=== PATIENT | male | born 1940 | race Caucasian/White ===

== ENCOUNTER 2016-03-21 23:39 | Emergency (ER) | payer OTHER, MEDICARE ==
[~2016-03-21] VITALS: Ht 170.2 cm; Wt 83.9 kg
[~2016-03-21 23:39] MED LIST: AMIODARONE200 MG PO; CLARITIN10 M1 PO; CRESTOR20 MG PO; FERROUS SULFAT325 M3 PO; FLOMAX(MONOGRA0.4 MG PO; FUROSEMIDE20 MG PO; FUROSEMIDE40 M1 PO; LOPRESSOR 25MG25 MG PO; METOPROLOL TART50 MG PO; PAXIL10 MG PO; POTASSIUM CHLO20 ME2 PO; PRINIVIL 5MG5 MG PO; PROAIR HFA0.09 MG/Ac INH; SENNA8.6 M3 PO; SIMVASTATIN40 MG PO; SPIRIVA1 PUF INH; SYMBICORT 160/41 PUF INH; VICODIN 500 MG-1 TAB PO; WARFARIN SODIUM5 MG PO
--- NOTE | 2016-03-22 01:27 | ED GI/GU/ABDOMINAL COMPLAINT ---
History of Present Illness General Chief Complaint: Abdominal Pain/Flank Pain Stated Complaint: CONSTIPATION,PAINFUL,LAST BM MOVEMENT NEW YEARS EV Source: patient Exam Limitations: no limitations Vital Signs & Intake/Output Vital Signs & Intake/Output Vital Signs Date Time Temp Pulse Resp B/P Pulse O2 O2 Flow FiO2 Ox Delivery Rate 03/22 42 94 Room Air 03/22 40 96.8 60 18 120/60 93 Room Air Allergies Coded Allergies: NO KNOWN ALLERGIES (12/09/13) Reconcile Medications Acetaminophen/Hydrocodone Bi (Vicodin 500 MG-5 MG) 1 TAB TAB 1 TAB PO Q6 pain (Reported) Albuterol Sulfate (Proair Hfa) 0.09 MG/Actuation ASA 2 PUFF INH Q4P PRN COPD Amiodarone Hydrochloride (Amiodarone) (Unknown Strength) TAB 200 MG PO DAILY HEART (Reported) PLEASE CONFIRM DOSE Budesonide/Formoterol Fumara (Symbicort 160-4.5 Mcg Inhaler) 160 MCG/4.5 MCG PUF 2 PUF INH BID COPD Ferrous Sulfate 325 MG TABLET 1 TAB PO BID SUPPLEMENT (Reported) Furosemide 40 MG TABLET 1 TAB PO BID WATER PILL (Reported) Lisinopril (Prinivil) 5 MG TABLET 5 MG PO DAILY HTN Loratadine (Claritin) 10 MG TABLET 1 TAB PO DAILY ALLERGIES (Reported) Magnesium Citrate (Citrate Of Magnesia) 300 ML SOLUTION 296 ML PO BID PRN constipation Metoprolol Tartrate (Lopressor) 25 MG TABLET 25 MG PO BID HEART Na Phos,M-B/Na Phos,Di-Ba (Fleet Enema) 19 GRAM-7 GRAM/118 ML ENEMA 1 E RC BID PRN constipation PAROXETINE HCL (Paxil) 10 MG TABLET 1 TAB PO DAILY ANXIETY (Reported) Potassium Chloride 20 MEQ TAB.ER.PRT 1 TAB PO DAILY SUPPLEMENT (Reported) Rosuvastatin Calcium (Crestor) 20 MG TABLET 1 TAB PO DAILY HIGH CHOLESTEROL Sennosides (Senna) 8.6 MG TABLET 1 TAB PO DAILY CONSTIPATION (Reported) Tamsulosin Hydrochloride (Flomax) (Unknown Strength) CAP.ER.24H 0.4 MG PO DAILY BPH (Reported) Tiotropium [place] (Spiriva) 18 MCG CAP.W.DEV 1 PUF INH DAILY COPD Warfarin Sodium 5 MG TABLET 1 TAB PO SI BLOOD THINNER (Reported) RECHECK INR ON MONDAY (12/18/13) AND FAX RESULTS TO DR. NASCIMENTO, TO DOSE COUMADIN PER INR. Triage Note: PT FROM HOME C/O CONSTIPATION./ UNABLE TO URINATE. PT STATES THAT 03/21/16 AROUND 1400 HIS STOMACH BEGAN TO CRAMP. PT STATES " I AM CONSTIPATED AND I AM UNABLE TO URINATE DUE TO THIS, IT HAS HAPPENED TO ME BEFORE" PT STATES HE IS COMPLIANT WITH HIS MIRALAX AND SENNACOT DAILY. PTS STOMACH UPON ASSESSMENT IS DISTENDED AND FIRM. AWAITING PROVIDER EVAL. Triage Nurses Notes Reviewed? yes Onset: Gradual Duration: week(s):, getting worse Timing: recent history Quality/Severity: cramping Location: generalized abdomen Radiation: no radiation Activities at Onset: none Prior Abdominal Problems: similar symptoms Modifying Factors: Worsens With: other (difficulty voiding/defecating). Associated Symptoms: abdominal pain HPI: 75 yo gentleman with recurrent constipation presents with constipation, where he states that he has not had a bowel movement in 3 days. "When it gets like this, it makes it hard to urinate.... Usually an enema helps me." He notes no fever, chills, chest pain, shortness of breath. He is otherwise well. Past History Travel History Traveled to [place] past 21 day No Medical History Any Pertinent Medical History? see below for history Cardiovascular: AFIB, CAD, CHF, hypertension, hyperlipidemia Musculoskeletal: chronic back pain Blood Disorders: thrombocytopenia Cancer(s): prostate cancer History of MRSA: No History of VRE: No History of CDIFF: No Surgical History Surgical History: CABG (X2) Psychosocial History Who do you live with Patient/Self What is your primary language Sami Tobacco Use: Never used ETOH Use: occasional use Illicit Drug Use: denies illicit drug use Family History Hx Contributory? No Review of Systems Review of Systems Constitutional: Reports: no symptoms. EENTM: Reports: no symptoms. Respiratory: Reports: no symptoms. Cardiovascular: Reports: no symptoms. GI: Reports: no symptoms. Genitourinary: Reports: no symptoms. Musculoskeletal: Reports: no symptoms. Skin: Reports: no symptoms. Neurological/Psychological: Reports: no symptoms. Hematologic/Endocrine: Reports: no symptoms. Immunologic/Allergic: Reports: no symptoms. All Other Systems: Reviewed and Negative Physical Exam Physical Exam General Appearance: well developed/nourished, mild distress Head: atraumatic, normal appearance Eyes: Bilateral: normal appearance. Ears, Nose, Throat, Mouth: hearing grossly normal, moist mucous membrane Neck: normal inspection, supple, full range of motion Respiratory: normal breath sounds, chest non-tender, no respiratory distress, quiet respiration, lungs clear Cardiovascular: regular rate/rhythm Gastrointestinal: mild distension, decreased bowel sounds. Back: normal inspection, normal range of motion Extremities: normal range of motion, evidence of injury Neurologic/Psych: no motor/sensory deficits, awake, alert, oriented x 3 Skin: intact, normal color, warm/dry Core Measures ACS in differential dx? No Severe Sepsis Present: No Septic Shock Present: No Progress Differential Diagnosis: constipation vs other. Plan of Care: Orders Procedure Date/time Status [id number] VIEWS 03/22 005 Active EKG 03/21 2352 Active Laboratory Tests 03/21/16 2353: Troponin I Cancelled, CBC w Diff Cancelled, WBC Cancelled, RBC Cancelled, Hgb Cancelled, Hct Cancelled, MCV Cancelled, MCH Cancelled, RDW Cancelled, Plt Count Cancelled, MPV Cancelled, PUBS MCHC Cancelled Initial ED EKG: normal axis, normal intervals, normal p-waves, normal QRS complex, normal sinus rhythm Departure Departure Disposition: HOME OR SELF CARE Condition: Stable Clinical Impression Primary Impression: Constipation Referrals: GAIL LIND,GILES (PCP/Family) Referred to [facility] as new patient No Departure Forms: Customer Survey General Discharge Information Prescriptions: Current Visit Scripts Na Phos,M-B/Na Phos,Di-Ba (Fleet Enema) 1 E RC BID PRN constipation #8 BOT Ref 3 Magnesium Citrate (Citrate Of Magnesia) 296 ML PO BID PRN constipation #8 BOT Ref 3 Comments 03/22/16, 1:54am... pt received fleet enema, which effected a large bowel movement. He is feeling better. He declines labs and xray. "I feel great doc... I would like to go home."
[2016-03-22] MEDS ORDERED: FLEET ENEMA133 ML RC (01:35)
[2016-03-22] MEDS ORDERED: CITRATE OF MAG300 ML PO (01:35)
[2016-03-22 01:57] VITALS: BP 122/62
== END 2016-03-22 01:52 ==
LOC: ERH 23:39
DX: K59.00 Constipation, unspecified (principal); R10.84 Generalized abdominal pain; I10 Essential (primary) hypertension
CPT/HCPCS: 93005; 93010

== ENCOUNTER 2017-03-24 19:25 | Inpatient (IN) | payer OTHER, MEDICARE ==
[~2017-03-24] VITALS: Ht 172.7 cm; Wt 88.5 kg
[~2017-03-24 19:25] MED LIST changes: +CITRATE OF MAG300 ML PO; +FLEET ENEMA133 ML RC
--- NOTE | 2017-03-24 19:56 | ED UPPER/LOWER EXTREMITY COMPL ---
History of Present Illness General Chief Complaint: Fall Stated Complaint: "I FELL 10 DAYS AGO, MY R KNEE HURTS" Source: patient, family Exam Limitations: no limitations Vital Signs & Intake/Output Vital Signs & Intake/Output Vital Signs Date Time Temp Pulse Resp B/P B/P Pulse O2 O2 Flow FiO2 Mean Ox Delivery Rate 03/240 98.4 79 18 112/81 99 Room Air 03/24 2055 Room Air 03/24 1931 96.7 82 18 106/72 99 Room Air Allergies Coded Allergies: NO KNOWN ALLERGIES (12/09/13) Reconcile Medications Ferrous Sulfate 325 MG (65 MG IRON) TABLET 1 TAB PO BID SUPPLEMENT (Reported) Furosemide 80 MG TABLET 1 TAB PO QAM DIURETIC (Reported) Furosemide (Lasix) 40 MG TABLET 1 TAB PO QPM DIURETIC (Reported) Gabapentin 100 MG CAPSULE 1 CAP PO DAILY NERVE PAIN (Reported) Linaclotide (Linzess) 145 MCG CAPSULE 1 CAP PO DAILY GI (Reported) Loratadine (Claritin) 10 MG TABLET 1 TAB PO DAILY ALLERGIES (Reported) Metoprolol Tartrate 25 MG TABLET 1 TAB PO BID HEART/BP (Reported) Paroxetine HCl (Paxil) 10 MG TABLET 1 TAB PO DAILY MENTAL HEALTH (Reported) Rosuvastatin Calcium (Crestor) 20 MG TABLET 1 TAB PO EOD CHOLESTEROL ( Reported) Spironolactone 25 MG TABLET 1 TAB PO DAILY DIURETIC (Reported) Tamsulosin HCl 0.4 MG CAP.ER.24H 1 CAP PO DAILY PROSTATE (Reported) Umeclidinium Brm/Vilanterol Tr (Anoro Ellipta 62.5-25 Mcg INH) 62.5 MCG-25 MCG/ ACTUATION BLST.W.DEV 1 PUFF INH DAILY COPD (Reported) Warfarin Sodium (Coumadin) 7.5 MG TABLET 1 TAB PO DAILY BLOOD THINNER ( Reported) Triage Note: PT TO TRIAGE C/O R KNEE PAIN RADIATING INTO R FOOT S/P FALL 10 DAYS AGO WHEN GETTING OUT OF BED. PT REPORTS USES WALKED FOR BALANCE BUT LOST BALANCE AND LANDED ON R KNEE. DENIES HEADSTRIKE, DENIES LOC. PT ON WARFARIN. REFUSES MEDICATION IN TRIAGE REPORTING "I DON'T LIKE TO TAKE ANY PILLS." A/OX4. Triage Nurses Notes Reviewed? yes Onset: Gradual Duration: week(s):, waxing and waning Timing: recent history Severity: moderate Pain/Injury Location: Right: Knee, Ankle. Method of Injury: fall Modifying Factors: Improves With: rest. Associated Symptoms: RIGHT KNEE AND ANKLE PAIN HPI: 76 yo gentleman on coumadin, fell out of bed 10 days ago. He notes that he still has right knee pain. "I rolled out of bed and my knee still hurts." He did not have dizziness, chest pain, palpitations. He notes that he has had difficulty walking for the past several weeks. "My legs seem to slip out... I don't walk well." He denies headache, neck pain. He noted mild right elbow pain previously but states that it has resolved. His family called and spoke to our lead RN who convey concerns regarding home safety, that he has difficulty walking. Past History Travel History Traveled to [place] past 21 day No Medical History Any Pertinent Medical History? see below for history Neurological: NONE EENT: NONE Cardiovascular: AFIB, CAD, CHF, hypertension, hyperlipidemia Respiratory: NONE Gastrointestinal: NONE Hepatic: NONE Renal: NONE Musculoskeletal: chronic back pain Psychiatric: NONE Endocrine: NONE Blood Disorders: thrombocytopenia Cancer(s): prostate cancer History of MRSA: No History of VRE: No History of CDIFF: No Surgical History Surgical History: CABG (X2) Psychosocial History Who do you live with Patient/Self What is your primary language Yoruba Tobacco Use: Never used ETOH Use: occasional use Family History Hx Contributory? No Review of Systems Review of Systems Constitutional: Reports: no symptoms. EENTM: Reports: no symptoms. Respiratory: Reports: no symptoms. Cardiovascular: Reports: no symptoms. Gastrointestinal/Abdominal: Reports: no symptoms. Genitourinary: Reports: no symptoms. Musculoskeletal: Reports: no symptoms. Skin: Reports: no symptoms. Neurological/Psychological: Reports: no symptoms. Hematologic/Endocrine: Reports: no symptoms. Immunological: Reports: no symptoms. All Other Systems: Reviewed and Negative Physical Exam Physical Exam General Appearance: well developed/nourished, mild distress Head: atraumatic Eyes: Bilateral: normal appearance, PERRL, EOMI. Ears, Nose, Throat: normal pharynx, normal ENT inspection Neck: normal inspection, supple, full range of motion Cardiovascular/Respiratory: normal breath sounds, normal peripheral pulses Gastrointestinal: soft, non tender Elbow Right: normal ROM, no tenderness. strength of right arm intact Knee Right: diffuse ecchymosis, diffuse tenderness. ligaments intact. strength intact, no deformity. Foot Right: swelling, chronic venous stasis changes bilaterally. mild tenderness at lateral malleolus Neurologic/Tendon: normal sensation, axox3 Progress Differential Diagnosis: contusion, fracture, sprain, right knee contusion vs other. , electrolyte abnormality Plan of Care: Orders Procedure Date/time Status Add-on Test (ER Only) 03/24 2312 Active BLOOD CULTURE 03/24 2299 Active LACTIC ACID 03/24 2214 Active TROPONIN LEVEL 03/24 2118 Active PARTIAL THROMBOPLASTIN TIME 03/24 2118 Complete PROTHROMBIN TIME 03/24 2118 Complete COMPREHENSIVE METABOLIC PANEL 03/24 2118 Active CBC WITHOUT DIFFERENTIAL 03/24 2118 Complete Current Medications Sig/Ifeanyi Start time Last Medication Dose Stop Time Status Admin Sodium Chloride 1,000 ML BOLUS ONE 03/24 2314 AC (Normal Saline 0.9%) 03/25 0014 Acetaminophen/ 1 TAB Q4 PRN 03/24 2299 AC 03/24 Codeine Phosphate 2240 (Tylenol #3) Azithromycin 500 MG ONCE ONE 03/24 2299 AC (Zithromax) 03/24 2358 Sodium Chloride 250 ML (Normal Saline 0.9%) Laboratory Tests 03/24/172214: Anion Gap 17 H, Estimated GFR 31 L, BUN/Creatinine Ratio 52.9 H, Glucose 102 H, Lactic Acid Pending, Calcium 9.3, Total Bilirubin 1.9 H, AST 43, ALT 42, Alkaline Phosphatase 153 H, Troponin I 0.01, Total Protein 8.2, Albumin 4.8, Globulin 3.4, Albumin/Globulin Ratio 1.4, PT 30.8 H, INR 2.97 H, APTT 41 H, CBC w Diff NO MAN DIFF REQ, RBC 3.75 L, MCV 88.3, MCH 30.6, RDW 16.9 H, MPV 7.7, Gran % 75.0, Lymphocytes % 10.5 L, Monocytes % 10.4 H, Eosinophils % 3.6, Basophils % 0.5, Absolute Granulocytes 5.3, Absolute Lymphocytes 0.7 L, Absolute Monocytes 0.7 H, Absolute Eosinophils 0.2, Absolute Basophils 0, PUBS MCHC 34.7 Microbiology 03/24 2299 BLOOD: Blood Culture - ORD 03/24 2299 BLOOD: Blood Culture - ORD Diagnostic Imaging: Viewed by Me: Radiology Read, CT Scan. Discussed w/RAD: Radiology Read, CT Scan. Radiology Impression: right knee... no fx PATIENT: KT DAVEY PRESENT AGE: 76 PATIENT ACCOUNT NO: [id number] : 42 LOCATION: [facility] ORDERING PHYSICIAN: Can Jones MD SERVICE DATE: EXAM TYPE: RAD - XRY-KNEE COMPLETE RIGHT EXAMINATION: XR KNEE, RIGHT CLINICAL INFORMATION: Right knee pain. COMPARISON: None TECHNIQUE: Four views of the right knee. FINDINGS: There is a moderate size enthesophyte along the superior and inferior patella. There is no abnormal joint effusion. A small loose body suspected in the lateral compartment. No visible acute fracture or dislocation seen. There is moderate prepatellar soft tissue swelling suggestive of bursitis or injury. IMPRESSION: Moderate size enthesophyte superior inferior patella. Small loose body suspected lateral compartment. No acute fracture or dislocation seen. Moderate prepatellar soft tissue swelling likely bursitis or injury. DICTATED BY: Constantin Meza MD DATE/TIME DICTATED:03/24/172007 TEACHING ASSISTANT:MEGAN DATE/TIME TRANSCRIBED:03/24/172007 CONFIDENTIAL, DO NOT COPY WITHOUT APPROPRIATE AUTHORIZATION. <Electronically signed in Other Vendor System> SIGNED BY: Constantin Meza MD 03/24/172013, head/cervical ct... no acute disease. PATIENT: KT DAVEY PRESENT AGE: 76 PATIENT ACCOUNT NO: [id number] : 42 LOCATION: [facility] ORDERING PHYSICIAN: Can Jones MD SERVICE DATE: 03/24/17 EXAM TYPE: CAT - CT CERV SPINE WO IV CONTRAST; CT HEAD WO IV CONTRAST EXAMINATION: CT HEAD WITHOUT CONTRAST CT CERVICAL SPINE WITHOUT CONTRAST CLINICAL INFORMATION: Confused. On Coumadin. COMPARISON: None. TECHNIQUE: Imaging was performed from the skull base to vertex without intravenous administration of contrast. In addition, helical noncontrast CT imaging was acquired through the cervical spine and source images were reviewed along with axial reconstructions and sagittal and coronal MPRs. DLP: 1339.4 mGy-cm FINDINGS : HEAD: No intracranial mass, hemorrhage, or midline shift is visualized. There is atrophy with prominence of the ventricles and the sulci and hypodensity of the periventricular white matter due to chronic small vessel ischemic disease. There is vascular calcifications of the internal carotid arteries and vertebral arteries bilaterally. No extra-axial collections are identified. Small amount of mucosal thickening present in the ethmoid sinuses. Mastoid air cells are normally aerated. CERVICAL SPINE: There is no evidence of acute cervical spine fracture. Vertebrae have normal height and alignment. There is been fusion with anterior plate and screws C4-C6. Cervical disc height narrowing with endplate spurs and irregularity of the endplates at C3-C4 and C6-C7. The posterior spurs at the uncinate process at C3-C4 encroach into the neural foramina bilaterally. There is bilateral facet joint arthrosis most significant at C1-C2 and C2-C3. No pre- or paravertebral soft tissue abnormality is identified. Ground glass opacity at the dependent left upper lobe along the major fissure. Emphysematous lucencies of lung apices subpleural lung. Pacemaker leads seen at the upper mediastinum. Status post median sternotomy. There is atherosclerotic vascular wall calcifications of aorta and origin of great vessels. There are vascular wall calcification of the carotid artery occlusion bilaterally in the soft tissues of the neck. IMPRESSION: 1. No acute intracranial pathology. 2. No CT evidence of acute cervical spine fracture or traumatic subluxation DICTATED BY: Dex Jo MD DATE/TIME DICTATED:03/24/172148 TEACHING ASSISTANT:MEGAN DATE/TIME TRANSCRIBED:03/24/172148 CONFIDENTIAL, DO NOT COPY WITHOUT APPROPRIATE AUTHORIZATION. <Electronically signed in Other Vendor System> SIGNED BY: Dex Jo MD 03/24/171 CXR Impression: right infiltrate PATIENT: KT DAVEY PRESENT AGE: 76 PATIENT ACCOUNT NO: [id number] : 42 LOCATION: [facility] ORDERING PHYSICIAN: Can Jones MD SERVICE DATE: 03/24/17 EXAM TYPE: RAD - XRY-ANKLE 3 OR MORE VIEWS R; XRY-CHEST XRAY, TWO VIEWS EXAMINATION: Right ankle and chest x-ray. CLINICAL INFORMATION: Right ankle pain. Chest pain status post fall. COMPARISON: Chest x-ray 12/24/2015 TECHNIQUE: AP, lateral, and mortise views of the right ankle. Chest PA and lateral views FINDINGS: RIGHT ANKLE: There is no visible acute fracture or dislocation. There is bimalleolar soft tissue swelling. The ankle mortise and subtalar joints are normal. There is dorsal talonavicular spurring. No lytic process seen. CHEST: There is a right lower lobe consolidation. Rest of lungs are expanded and clear. Heart size is enlarged with mild prominence of pulmonary vascularity but no congestion. There are dual pacer electrodes in right atrium and right ventricle. There are mediastinal randall and median sternotomy sutures from previous CABG. No gross bony abnormality seen. IMPRESSION: Right lower lobe consolidation/ infiltrate. Bimalleolar soft tissue swelling without any underlying visible fracture or dislocation. DICTATED BY: Constantin Mzea MD DATE/TIME DICTATED:2156 TEACHING ASSISTANT:MEGAN DATE/TIME TRANSCRIBED:03/24/172156 CONFIDENTIAL, DO NOT COPY WITHOUT APPROPRIATE AUTHORIZATION. <Electronically signed in Other Vendor System> SIGNED BY: Constantin Meza MD 03/24/172203 Departure Departure Disposition: HOME OR SELF CARE Condition: Stable Clinical Impression Primary Impression: Pneumonia Secondary Impressions: Contusion of right knee, Dehydration, Renal failure, Weakness Referrals: Ady San MD (PCP/Family) Departure Forms: Customer Survey General Discharge Information Admission Note Spoke With: Tamir Hanna MD Documentation of Exam: Documentation of any treatments & extenuating circumstances including Concerns Regarding Discharge (functional status, medication knowledge or non-compliance, living conditions, etc.) that warrant an admission rather than observation: pt with pneumonia, renal failure, fatigue and weakness. pt merits iv fluids, iv abx, close follow up. Critical Care Note Critical Care Note Critical Care Time: 30-74 min
--- NOTE | 2017-03-24 20:14 | RADIOLOGY REPORT ---
EXAMINATION: XR KNEE, RIGHT CLINICAL INFORMATION: Right knee pain. COMPARISON: None TECHNIQUE: Four views of the right knee. FINDINGS: There is a moderate size enthesophyte along the superior and inferior patella. There is no abnormal joint effusion. A small loose body suspected in the lateral compartment. No visible acute fracture or dislocation seen. There is moderate prepatellar soft tissue swelling suggestive of bursitis or injury. IMPRESSION: Moderate size enthesophyte superior inferior patella. Small loose body suspected lateral compartment. No acute fracture or dislocation seen. Moderate prepatellar soft tissue swelling likely bursitis or injury.
--- NOTE | 2017-03-24 22:04 | RADIOLOGY REPORT ---
EXAMINATION: Right ankle and chest x-ray. CLINICAL INFORMATION: Right ankle pain. Chest pain status post fall. COMPARISON: Chest x-ray 12/24/2015 TECHNIQUE: AP, lateral, and mortise views of the right ankle. Chest PA and lateral views FINDINGS: RIGHT ANKLE: There is no visible acute fracture or dislocation. There is bimalleolar soft tissue swelling. The ankle mortise and subtalar joints are normal. There is dorsal talonavicular spurring. No lytic process seen. CHEST: There is a right lower lobe consolidation. Rest of lungs are expanded and clear. Heart size is enlarged with mild prominence of pulmonary vascularity but no congestion. There are dual pacer electrodes in right atrium and right ventricle. There are mediastinal randall and median sternotomy sutures from previous CABG. No gross bony abnormality seen. IMPRESSION: Right lower lobe consolidation/infiltrate. Bimalleolar soft tissue swelling without any underlying visible fracture or dislocation.
--- NOTE | 2017-03-24 22:05 | CT SCAN REPORT ---
EXAMINATION: CT HEAD WITHOUT CONTRAST CT CERVICAL SPINE WITHOUT CONTRAST CLINICAL INFORMATION: Confused. On Coumadin. COMPARISON: None. TECHNIQUE: Imaging was performed from the skull base to vertex without intravenous administration of contrast. In addition, helical noncontrast CT imaging was acquired through the cervical spine and source images were reviewed along with axial reconstructions and sagittal and coronal MPRs. DLP: 1339.4 mGy-cm FINDINGS: HEAD: No intracranial mass, hemorrhage, or midline shift is visualized. There is atrophy with prominence of the ventricles and the sulci and hypodensity of the periventricular white matter due to chronic small vessel ischemic disease. There is vascular calcifications of the internal carotid arteries and vertebral arteries bilaterally. No extra-axial collections are identified. Small amount of mucosal thickening present in the ethmoid sinuses. Mastoid air cells are normally aerated. CERVICAL SPINE: There is no evidence of acute cervical spine fracture. Vertebrae have normal height and alignment. There is been fusion with anterior plate and screws C4-C6. Cervical disc height narrowing with endplate spurs and irregularity of the endplates at C3-C4 and C6-C7. The posterior spurs at the uncinate process at C3-C4 encroach into the neural foramina bilaterally. There is bilateral facet joint arthrosis most significant at C1-C2 and C2-C3. No pre- or paravertebral soft tissue abnormality is identified. Ground glass opacity at the dependent left upper lobe along the major fissure. Emphysematous lucencies of lung apices subpleural lung. Pacemaker leads seen at the upper mediastinum. Status post median sternotomy. There is atherosclerotic vascular wall calcifications of aorta and origin of great vessels. There are vascular wall calcification of the carotid artery occlusion bilaterally in the soft tissues of the neck. IMPRESSION: 1. No acute intracranial pathology. 2. No CT evidence of acute cervical spine fracture or traumatic subluxation
[2017-03-24 22:27] LABS: ABSOLUTE BASOPHIL COUNT 0 /CUMM (0.0-0.2); ABSOLUTE EOSINOPHIL COUNT 0.2 /CUMM (0.0-0.7); ABSOLUTE GRANULOCYTE CT 5.3 /CUMM (1.4-6.5); ABSOLUTE LYMPH COUNT 0.7 /CUMM (1.2-3.4); ABSOLUTE MONOCYTE COUNT 0.7 /CUMM (0.10-0.60); BASOPHIL % 0.5 % (0.0-2.0); EOSINOPHIL % 3.6 % (0-5); HEMATOCRIT 33.1 % (42-52); MEAN CORPUSCULAR HGB 30.6 PG (27.0-31.0); MEAN CORPUSCULAR HGB CONC 34.7 G/DL (33.0-37.0); MEAN CORPUSCULAR VOLUME 88.3 FL (80.0-94.0); MEAN PLATELET VOLUME 7.7 FL (7.4-10.4); PLATELET COUNT 127 /CUMM (130-400); RBC DISTRIBUTION WIDTH 16.9 % (11.5-14.5); RED BLOOD CELL CT 3.75 /CUMM (4.70-6.10)
[2017-03-24 22:37] LABS: PT 30.8 SEC (9.4-12.5); PTT 41 SEC (25-37)
[2017-03-24] MEDS ORDERED: METOPROLOL TART25 M1 PO (23:01)
[2017-03-24] MEDS ORDERED: CLARITIN10 M1 PO (23:02)
[2017-03-24] MEDS ORDERED: FERROUS SULFAT325 M3 PO (23:02)
[2017-03-24] MEDS ORDERED: TAMSULOSIN HCL0.4 M1 PO (23:03)
[2017-03-24] MEDS ORDERED: COUMADIN7.5 M1 PO (23:03)
[2017-03-24] MEDS ORDERED: FUROSEMIDE80 M1 PO (23:03)
[2017-03-24] MEDS ORDERED: ANORO ELLIPTA1 EACH INH (23:04)
[2017-03-24] MEDS ORDERED: LASIX40 M1 PO (23:04)
[2017-03-24] MEDS ORDERED: SPIRONOLACTONE25 M1 PO (23:04)
[2017-03-24] MEDS ORDERED: CRESTOR20 M2 PO (23:05)
[2017-03-24] MEDS ORDERED: GABAPENTIN100 M2 PO (23:05)
[2017-03-24] MEDS ORDERED: PAXIL10 M1 PO (23:05)
[2017-03-24] MEDS ORDERED: LINZESS145 MC1 PO (23:05)
[2017-03-25] VITALS (7 sets, daily range): BP systolic 98–130; BP diastolic 58–72
--- NOTE | 2017-03-25 00:39 | History & Physical ---
Duy LIND,Christine 03/25/17 0038: General Information and HPI MD Statement: I have seen and personally examined KT DAVEY and documented this H&P. The patient is a 76 year old M who presented with a patient stated chief complaint of []. Source of Information: patient, old records Exam Limitations: no limitations History of Present Illness: CC: Right knee pain, frequent falling, cough 76-year-old male with past medical history of A. fib on Coumadin, CAD S/P CABG, CHF, hypertension, hyperlipidemia, trombocytopenia, prostate cancer, presented to [facility] complaining of right knee pain and swelling after falling down on his knee 10 days ago when he rolled down and fell from his bed. Patient reports increasing falling recently in the past few months. Which he attributes to having weakness in his lower extremity. He shouldn't reports that he saw his primary care doctor for advice regarding this problem which he had treatment for restless leg syndrome but it didn't help to improve his weakness. The patient describes the pain as severe 10/10 in severity in his right knee, a few days later he started noticing pain and swelling of his left ankle as well. Before that fall The patient was moving independently , he lives home alone. The patient admitted that he has been following a strict low-salt diet but at the time of Miguelito he increased his salt intake. Patient usually weigh himself daily at home and at rest his Lasix dose depending on his weight. The patient said that he increased his Lasix dose when he noticed that he had gained weight and felt more edematous. (Patient is on furosemide, spironolactone, metoprolol for treatment of heart failure. 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 Patient also endorses cough, wheezes and expectoration of white/yellowish sputum for the past week. He denies fever, chills, nausea, vomiting, recent travel or sick contacts. He also denies any dysuria, frequency, hesitancy. Patient is nonsmoker, he quit smoking 40 years ago, he drinks 1 glass of wine daily, his last drink was on the day of admission. He denies any recreational drug use Allergies/Medications Allergies: Coded Allergies: NO KNOWN ALLERGIES (12/09/13) Home Med list Ferrous Sulfate 325 MG (65 MG IRON) TABLET 1 TAB PO BID SUPPLEMENT (Reported) Furosemide 80 MG TABLET 1 TAB PO QAM DIURETIC (Reported) Furosemide (Lasix) 40 MG TABLET 1 TAB PO QPM DIURETIC (Reported) Gabapentin 100 MG CAPSULE 1 CAP PO DAILY NERVE PAIN (Reported) Linaclotide (Linzess) 145 MCG CAPSULE 1 CAP PO DAILY GI (Reported) Loratadine (Claritin) 10 MG TABLET 1 TAB PO DAILY ALLERGIES (Reported) Metoprolol Tartrate 25 MG TABLET 1 TAB PO BID HEART/BP (Reported) Paroxetine HCl (Paxil) 10 MG TABLET 1 TAB PO DAILY MENTAL HEALTH (Reported) Rosuvastatin Calcium (Crestor) 20 MG TABLET 1 TAB PO EOD CHOLESTEROL ( Reported) Spironolactone 25 MG TABLET 1 TAB PO DAILY DIURETIC (Reported) Tamsulosin HCl 0.4 MG CAP.ER.24H 1 CAP PO DAILY PROSTATE (Reported) Umeclidinium Brm/Vilanterol Tr (Anoro Ellipta 62.5-25 Mcg INH) 62.5 MCG-25 MCG/ ACTUATION BLST.W.DEV 1 PUFF INH DAILY COPD (Reported) Warfarin Sodium (Coumadin) 7.5 MG TABLET 1 TAB PO DAILY BLOOD THINNER ( Reported) Past History Travel History Traveled to [place] past 21 day No Medical History Neurological: NONE EENT: NONE Cardiovascular: AFIB, CAD, CHF, hypertension, hyperlipidemia Respiratory: NONE Gastrointestinal: NONE Hepatic: NONE Renal: NONE Musculoskeletal: chronic back pain Psychiatric: NONE Endocrine: NONE Blood Disorders: thrombocytopenia Cancer(s): prostate cancer History of MRSA: No History of VRE: No History of CDIFF: No Surgical History Surgical History: CABG (X2) Past Family/Social History Family History Relations & Conditions if any Relation not specified for: *No pertinent family history Psychosocial History Smoking Status: Former Smoker ETOH Use: occasional use Functional Ability ADLs Independent: dressing, eating, toileting, bathing. Review of Systems Review of Systems Constitutional: Reports: malaise, weakness. Denies: chills, diaphoresis, fever. Cardiovascular: Denies: no symptoms. Respiratory: Reports: cough, sputum production. GI: Denies: bloating, constipation, diarrhea, nausea, vomiting. Genitourinary: Denies: no symptoms. Musculoskeletal: Reports: joint pain, joint swelling. Skin: Denies: no symptoms. Exam & Diagnostic Data Last 24 Hrs of Vital Signs/I&O Vital Signs Date Time Temp Pulse Resp B/P B/P Pulse O2 O2 Flow FiO2 Mean Ox Delivery Rate 03/25 0231 97.6 67 18 95/51 98 Room Air 03/24 2250 98.4 79 18 112/81 99 Room Air 03/24 2055 Room Air 03/24 1930 96.7 82 18 106/72 99 Room Air Intake & Output 03/25 0800 03/25 0000 03/24 1600 Intake Total Output Total 200 Balance -200 Output, Urine 200 Patient 160 lb Weight Weight Reported by Patient Measurement Method Physical Exam General Appearance Alert, Oriented X3, Cooperative, No Acute Distress HEENT Atraumatic, PERRLA, EOMI, Mucous Membr. moist/pink Neck Supple, No JVD Cardiovascular Normal S1, Normal S2, No Murmurs, irregular irregular Lungs wide spread rales and wheezes Abdomen Normal Bowel Sounds, Soft, No Tenderness Neurological Normal Speech Extremities No Clubbing, No Cyanosis, 2+ pitting edema, reddish discoloration and signs of dystrophic skin changes on both LE Vascular Normal Pulses Last 24 Hrs of Labs/Manuel: Laboratory Tests 03/25/17 0211: Urine Color YEL, Urine Clarity CLEAR, Urine pH 6.0, Ur Specific [place] 1.010, Urine Protein NEG, Urine Ketones NEG, Urine Nitrite NEG, Urine Bilirubin NEG, Urine Urobilinogen 0.2, Ur Leukocyte Esterase NEG, Ur Microscopic EXAM NOT REQUIRED, Urine Hemoglobin NEG, Urine Glucose NEG 03/25/17 0211: Ur Random Creatinine 54.9, Ur Random Sodium 5 L, Ur Random Potassium 33.8, Fraction Sodium Excret 0.2 03/24/175: Anion Gap 17 H, Estimated GFR 31 L, BUN/Creatinine Ratio 52.9 H, Glucose 102 H, Lactic Acid 1.1, Calcium 9.3, Total Bilirubin 1.9 H, AST 43, ALT 42, Alkaline Phosphatase 153 H, Creatine Kinase 145, Troponin I 0.01, Pro-B- Natriuretic Pept 790 H, Total Protein 8.2, Albumin 4.8, Globulin 3.4, Albumin/ Globulin Ratio 1.4, PT 30.8 H, INR 2.97 H, APTT 41 H, CBC w Diff NO MAN DIFF REQ, RBC 3.75 L, MCV 88.3, MCH 30.6, RDW 16.9 H, MPV 7.7, Gran % 75.0, Lymphocytes % 10.5 L, Monocytes % 10.4 H, Eosinophils % 3.6, Basophils % 0.5, Absolute Granulocytes 5.3, Absolute Lymphocytes 0.7 L, Absolute Monocytes 0.7 H, Absolute Eosinophils 0.2, Absolute Basophils 0, PUBS MCHC 34.7 Microbiology 03/25 210 URINE ROUT: Legionella Antigen - COMP 03/25 210 URINE ROUT: Streptococcus pneumoniae Antigen (M - COMP 03/25 020 NASOPHARYN: Influenza Virus A & B Rapid Smear - COMP 03/25 123 LOWER RESP: Respiratory Culture - ORD 03/25 123 LOWER RESP: Gram Stain - ORD 03/24 235 BLOOD: Blood Culture - RECD 03/24 2342 BLOOD: Blood Culture - RECD Assessment/Plan Assessment: 76-year-old male with past medical history of A. fib on Coumadin, CAD S/P CABG, CHF, hypertension, hyperlipidemia, trombocytopenia, prostate cancer, presented to [facility] complaining of right knee pain and swelling after falling down on his knee 10 days ago when he rolled down and fell from his bed. Patient reports increasing falling recently in the past few months. Most likely his falls are associated with increased diuretic intake which he felt his pulse him to orthostatic hypotension and weakness. Also consider diuretic intake has caused deteriorating renal functions. Also the patient was complaining of cough and expectoration for the past 2 days, Vital signs on admission: Normal except for blood pressure 95/51 Admission Showed Normal WBC of 7, Hemoglobin 11.5, Hematocrit 33.1, Platelets 127, INR 2.97, low sodium of 127, potassium 4, increased BUN/creatinine of 111/ 2.1, glucose 102, total bilirubin slightly increased of 1.9, proBNP 790, alkaline phosphatase 153, urine analysis normal chest x-ray showed right lower lobe consolidation/infiltrate, Bimalleolar soft tissue swelling without any underlying visible fracture or dislocation Imaging of lower extremity didn't show any signs of hip, knee or ankle fracture EKG showed A. fib with a QTc 518, no STT with changes #Community-acquired pneumonia: was initially started on ceftriaxone 1 g daily IV and azithromycin 500 mg daily IV which was subsequently switched to Unasyn Urine strep pneumonia and legionella antigen was negative Follow up on LRC, blood culture TRC #DONATO" Most likely due to high-dose Lasix We'll hold the morning dose of Lasix and resume the dose at night to prevent fluid overload and development of CHF exacerbation Close monitoring of kidney function Strict I's and O's Avoid nephrotoxic meds Encourage oral intake #Hyponatremia: Most likely due to decreased oral intake in addition to high-dose Lasix Follow-up BEP in the morning #History of A. fib on Coumadin, artificial valve Check PT/INR in the a.m. We'll dose Coumadin accordingly with target INR of 2-3 Cardiology consult appreciated in the a.m. #Chronic medical conditions CAD S/P CABG, CHF, hypertension, hyperlipidemia, trombocytopenia, prostate cancer, Continue home meds #History of fall, right knee pain and swelling History excluded any fracture in the hip, knee, ankle Pain control with Tylenol, and oxycodone Dystrophic skin changes and poor peripheral pulses, with a history of CAD which raises suspicion for PAD Might need to check duplex ultrasound of lower extremity Patient is full code DVT prophylaxis with Coumadin Heart healthy diet As Ranked By This Provider Problem List: 1. Pneumonia Core Measures/Misc (12/04) Acute Coronary Syndrome ACS Diagnosis: No Congestive Heart Failure Congestive Heart Failure Diagnosis No Cerebrovascular Accident CVA/TIA Diagnosis: No VTE (View Protocol) VTE Risk Factors Age>40 No Mechanical VTE Prophylaxis d/t N/A MechProphylax Ordered No VTE Pharm Prophylaxis d/t NA PharmProphylax ordered Sepsis (View protocol) Sepsis Present: No Rowdy Whitley 03/25/17 0424: Resident Review Statement Resident Statement: examined this patient, discussed with human resource internship, agreed with human resource internship, reviewed EMR data (avail), discussed with nursing, reviewed images, amended to note Other Findings: This is 76-year-old male with medical history of atrial fibrillation on Coumadin , coronary artery disease S/P CABG, diastolic congestive heart failure with preserved ejection fraction, hypertension, hyperlipidemia, mitral repair, bioprosthetic aortic valve. He presented to emergency department with complaining of right knee pain and swelling after falling down on his knee 10 days ago when he rolled down and fell from his bed. Patient reported that for the past 1-2 months he started to complain off difficulty ambulation, he states it's progressing and currently he cannot walk completely dependent. Also he reports that 2-3 month ago he was admitted to [facility] he was little bit confused if it's due to his congestive heart failure or pneumonia. Patient reports undergo recent colonoscopy around 3-4 weeks ago. He stated that usually check his weight at home and at just his Lasix regimen according to that, he reports that he is compliant with that but during the holiday patient reports taking some salty food and he gain some weighs and because of that increased his Lasix regimen, he reports feeling dehydrated and thirsty. Physical examination, lab and imaging as above. Assessment: -Chest x-ray finding: The patient currently asymptomatic, but the chest x-ray finding can be most likely due to aspiration status post the previous colonoscopy giving her presentation and the anatomical site of the consolidation. It also could be atypical which is least likely. -Acute and chronic kidney disease/hyponatremia: Most likely secondary to Lasix overdose. Addition to that the generalized weakness and decreased oral intake. -Difficulty ambulation/generalized weakness: Most likely due to the above presentation and due to his underlying comorbidities. Plan: -Admit patient to general medicine floor -[facility] every shift, strict RIVER's -Patient received 1 dose of IV ceftriaxone and azithromycin, will start IV Unasyn -Sputum culture, blood culture, strep and Legionella urine antigen, rapid flu -TRC nebs as needed -Patient received 1 normal saline bolus in the ED we'll hold off any fluid -Hold off home medication of Lasix, spironolactone -Check INR in a.m. adjust warfarin accordingly -Obtain hip x-ray to rule out fracture -Check Urinalysis, urine electrolytes, pro-B- peptide -Check CBC and basic electrolyte in a.m. -Physical therapy consultation in a.m. -Heart healthy diet -Pain pathway -DVT prophylaxis on warfarin -Full code [email or web address] [email or web address] 03/25/17 0715: Attending MD Review Statement Attending Statement Attending MD Statement: examined this patient, discuss w/resident/PA/FRUIT DISTRIBUTOR, agreed w/resident/PA/FRUIT DISTRIBUTOR, reviewed EMR data (avail), reviewed images, amended to note Attending Assessment/Plan: CC: Persistent right knee pain PMH: Aortic valve replacement, mitral valve repair, A. fib S/P maze surgery followed by pacemaker placement, CAD S/P one-vessel CABG, HTN, HF , chronic back pain, "low blood counts", COPD, BPH Patient presented to ER for persistent right knee pain. Patient states that he fell down from bed 10 days back, he exactly does not recall the fall but probably he was getting up the bed and leg gave out, did not lose consciousness, no chest pain palpitations before or after the fall. Patient is active at baseline but decreased activity after the injury, he has swollen right knee and right ankle after the fall. Of note patient states that he has been unsteady approximately 1-2 months, feeling like legs giving out, having multiple falls. Upon questioning multiple times he endorses productive cough and sputum production, but denies any chest pain, chest tightness, fever, chills, nausea, vomiting, choking of food. He has been hospitalized multiple times and [facility] for various reasons, last admission probably 2 months back or more, does not specify the reason probably heart failure versus pneumonia. "I have been in and out of hospitals so many times that I don't remember anymore". Patient takes 80 mg of Lasix in the morning 40 mg of Lasix in the night, checks his weight daily, takes extra Lasix dose if patient gets repeat gain, increase leg swelling or abdominal distention : 80 mg nightly dose instead of 40 mg and had some a dose of metolazone . Patient has been very strict about his water intake and sodium intake over the time but lost some control according to him during the [place] time, followed by which he took extra dose of Lasix. He denies any nausea, vomiting, diarrhea, bleeding per rectum or in vomiting. His last colonoscopy within the last month. Vitals: T max 98.4, HR 70s, RR 18, blood pressure 112/81, saturating 99% on room air. On exam: A O 3, cooperative, no acute distress, neck supple, JVD not elevated, no lymphadenopathy, mucosa dry, no focal neurological deficit, ROM in right ankle and right knee limited secondary to pain, contusion over the patella right knee and probable effusion of right knee, mild redness it's not warm to touch, bilateral leg edema R>L , CVS: S1-S2, RRR. RS: Clear to auscultate bilaterally. Abdomen: Soft, NT, obese, abdominal hernia, bowel sounds present. Labs: WBC 7.0, hemoglobin 11.5, and hematocrit 33.1, platelet 127, sodium 127, potassium 4.0, chloride 82, bicarbonate 28, BUN 111, creatinine 2.1, anion gap 17, glucose 102, calcium 9.3, lactate 1.1, LFT unremarkable, proBNP 790,, troponin 0.01, INR 2.97 ECG: ?Junctional rhythm : Narrow complex regular, could not appreciate P waves CT head, CT cervical spine, chest x-ray, ankle x-ray, knee x-ray, hip x-ray reviewed 1.Right lower lobe consolidation/infiltrate. 2.Bimalleolar soft tissue swelling without any underlying visible fracture or dislocation. 3.Moderate prepatellar soft tissue swelling likely bursitis or injury. Assessment and plan 76-year-old male presented in ER for persistent right knee pain after what appears to be mechanical fall 10 days back. The right knee has hematoma or contusion on patella, possibly effusion range of motion as possible but painful. X-ray reads bursitis or injury. Ankle is also swollen and tender, ROM is limited due to pain, and x-ray of ankle does not show any fractures. Patient has been having this unsteady gait since last 1 month or so, appears dehydrated on examination, elevated BUN, bicarbonate, hyponatremic, mild elevation in creatinine all goes in favor of dehydration causing prerenal DONATO on CKD. Patient has been very strict on his fluid and salt intake, has been taking excessive Lasix for weight gain, leg edema or abdominal girth which may be contributing to his unsteadiness and falls. Patient lives alone and family is concerned about the safety, patient refuses to go to rehabilitation facility and wants to go to assisted living facility. Instead he wants to try outpatient rehabilitation. Meanwhile he is also found to have right lower lobe infiltrates but there is no significant leukocytosis or left shift no fever. Upon probing patient endorses cough and sputum production but denies any fevers chills at home. With multiple hospitalization healthcare associated pneumonia as possible but last hospitalization was at least 2 months back. Meanwhile patient also had a colonoscopy done within last month, sedation may have precipitated aspiration event leading to pneumonia which is in right lower lobe. + Right knee injury versus bursitis, ? Knee effusion + Right ankle sprain + Mechanical fall + Dehydration secondary to excessive diuresis + Suspected aspiration pneumonia - Admit to general medicine - Hold Lasix for tomorrow morning (80 mg dose), restart Lasix from tomorrow night 80 - 40 - Consult cardiology in a.m. reassess diuretic regimen, with concerns of unsteady gait, recurrent falls, possible excessive dieresis - Right knee ultrasound, right hip x-ray - Consider orthopedic consult in a.m. - Adequate pain control - Continue IV Unasyn for suspected aspiration pneumonia - OT PT evaluation - Will need case management consult for short-term rehabilitation versus outpatient rehabilitation - Continue home doses of warfarin
--- NOTE | 2017-03-25 03:10 | RADIOLOGY REPORT ---
EXAMINATION: XR HIP, RIGHT CLINICAL INFORMATION: Pain and fall. COMPARISON: None TECHNIQUE: AP portable view of the right hip. FINDINGS: L4-L5 posterior fixation hardware is noted. No fracture is visualized in the right hip or visible portions the right hemipelvis. No dislocation. IMPRESSION: No radiographic evidence of right hip fracture.
--- NOTE | 2017-03-25 07:17 | Admission Certification ---
Admission Certification Certification Statement - As attending physician, I certify that at the time of - admission, based on clinical presentation, severity of - symptoms, need for further diagnostic testing and - therapeutic interventions, and risk of adverse outcomes - without in-hospital treatment, in my clinical assessment, - this patient requires an acute hospital stay for a minimum - of two nights or longer. I have also considered psychsocial - factors such as support system, advanced age, financial - issues, cognitive issues, and failed out-patient treatments, - past re-admission history, safety of patient, and lack of - compliance as applicable. Specific rationale supporting this admission is: Fall, right knee injury, right lower lobe pneumonia, dehydration
[2017-03-25 08:14] LABS: PT 29.7 SEC (9.4-12.5)
[2017-03-25 08:21] LABS: ABSOLUTE BASOPHIL COUNT 0 /CUMM (0.0-0.2); ABSOLUTE EOSINOPHIL COUNT 0.2 /CUMM (0.0-0.7); ABSOLUTE GRANULOCYTE CT 3.8 /CUMM (1.4-6.5); ABSOLUTE LYMPH COUNT 0.8 /CUMM (1.2-3.4); ABSOLUTE MONOCYTE COUNT 0.6 /CUMM (0.10-0.60); BASOPHIL % 0.6 % (0.0-2.0); EOSINOPHIL % 4.1 % (0-5); HEMATOCRIT 30.1 % (42-52); MEAN CORPUSCULAR HGB 30.4 PG (27.0-31.0); MEAN CORPUSCULAR HGB CONC 34.5 G/DL (33.0-37.0); MEAN CORPUSCULAR VOLUME 88.2 FL (80.0-94.0); MEAN PLATELET VOLUME 8.7 FL (7.4-10.4); RBC DISTRIBUTION WIDTH 17.7 % (11.5-14.5); RED BLOOD CELL CT 3.42 /CUMM (4.70-6.10); WHITE BLOOD CELL COUNT 5.4 /CUMM (4.8-10.8)
[2017-03-25 10:16] LABS: PLATELET COUNT 97 /CUMM (130-400)
--- NOTE | 2017-03-25 12:20 | ULTRASOUND REPORT ---
EXAMINATION: US SUPERFICIAL IMAGING, EXTREMITY CLINICAL INFORMATION: Pain and swelling status post fall. COMPARISON: Right knee films dated 03/24/2017. TECHNIQUE: Focused ultrasound of the right knee was performed. FINDINGS: In the posterior medial popliteal fossa, no focal fluid collection is seen. As seen on the plain film, there is prominent prepatellar soft tissue swelling without significant defined fluid collection or soft tissue mass seen. No significant hyperemia is seen with color Doppler imaging. IMPRESSION: Prominent prepatellar soft tissue swelling without defined bursal collection or defined hematoma formation.
--- NOTE | 2017-03-25 15:32 | PN- Att Addend ---
Attending Addendum Attending Brief Note S: The patient continues to complain of pain throughout his RLE- particularly pre-patellar region of his knee and his ankle region. He has bilateral swelling RLE>>LLE and states the swelling was there prior to his fall. He feels that he is having increasing symptoms of CHF- he has been taking extra Lasix at home. Is followed by Harvesting Manager in [facility] group per house staff. He denies dyspnea, however feels fluid is backing up into abdomen. Lasix has been held. INR and Cr are elevated. He does admit to cough. O: VS: Vital Signs Date Time Temp Pulse Resp B/P B/P Pulse O2 O2 Flow FiO2 Mean Ox Delivery Rate 03/25 1600 98.4 73 20 130/70 94 Room Air 03/25 1600 98.4 73 20 130/70 94 Room Air Intake & Output 03/25 1600 Intake Total 940 Output Total 950 Balance -10 Intake, IV 320 Intake, Oral 620 Number 0 Bowel Movements Output, Urine 950 Current Medications Sig/Ifeanyi Start time Last Medication Dose Route Stop Time Status Admin Acetaminophen 650 MG Q6 PRN 03/25 0115 AC PO Acetaminophen/ 1 TAB Q4 PRN 03/24 2300 AC 03/25 Codeine Phosphate PO 0930 Acetaminophen/ 0 .STK-MED ONE 03/24 2299 DC Codeine Phosphate PO Ampicillin Sodium/ 1,500 MG Q6 03/25 0630 AC 03/25 Sulbactam Sodium IV 1710 Sodium Chloride 100 ML Atorvastatin Calcium 80 MG 1700 03/25 1700 AC 03/25 PO 1710 Azithromycin 500 MG DAILY 03/25 1000 CAN Sodium Chloride 250 ML IV Azithromycin 500 MG ONCE ONE 03/24 2300 DC 03/25 Sodium Chloride 250 ML IV 03/24 2359 0020 Budesonide/ 2 PUF BID 03/25 1000 AC 03/25 Formoterol Fumarate INH 0931 Ceftriaxone Sodium 1,000 MG DAILY 03/25 1000 CAN IV Ceftriaxone Sodium 0 .STK-MED ONE 03/25 0017 DC .ROUTE Ceftriaxone Sodium 1,000 MG ONCE ONE 03/24 2300 DC 03/25 IV 03/24 2301 0015 Gabapentin 100 MG DAILY 03/25 1000 AC 03/25 PO 0931 Hydrocodone Bitart/ 1 TAB Q8P PRN 03/25 0115 AC Acetaminophen PO Metoprolol Tartrate 25 MG BID 03/25 1000 AC 03/25 PO 0931 Oxycodone HCl 10 MG Q8P PRN 03/25 0115 AC PO Paroxetine HCl 10 MG DAILY 03/25 1000 AC 03/25 PO 0931 Sodium Chloride 1,000 ML BOLUS ONE 03/24 2315 DC IV 03/25 0014 Tamsulosin HCl 0.4 MG DAILY 03/25 1000 AC 03/25 PO 0930 Tiotropium [place] 1 PUF DAILY 03/25 1000 AC 03/25 INH 0931 Trimethobenzamide HCl 200 MG ONCE PRN 03/25 0230 AC IM Physical Exam: HEENT: alvin- moist mucosa Neck: no JVD Chest: few crackles at bases, no wheeze, occ rhonchi Cor: sl irreg rhythm, nl rate, nl S1, S2 no murm Abd: BS+, soft, slightly distended Ext: RLE- 2+ edema, stasis changes, + ecchymoses, + prepatellar bursa tender, pulses 1+ LLE- 1+ edema, stasis changes, no ecchymoses Labs/Tests: RLE US IMPRESSION: Prominent prepatellar soft tissue swelling without defined bursal collection or defined hematoma formation. Laboratory Tests 03/25/17 0708: Anion Gap 14, Estimated GFR 37 L, BUN/Creatinine Ratio 53.3 H, PT 29.7 H, INR 2.86 H, CBC w Diff NO MAN DIFF REQ, RBC 3.42 L, MCV 88.2, MCH 30.4, RDW 17.7 H, MPV 8.7, Gran % 70.0, Lymphocytes % 14.1 L, Monocytes % 11.2 H, Eosinophils % 4.1, Basophils % 0.6, Absolute Granulocytes 3.8, Absolute Lymphocytes 0.8 L, Absolute Monocytes 0.6, Absolute Eosinophils 0.2, Absolute Basophils 0, PUBS MCHC 34.5 03/25/17 0211: Urine Color YEL, Urine Clarity CLEAR, Urine pH 6.0, Ur Specific Stuart 1.010, Urine Protein NEG, Urine Ketones NEG, Urine Nitrite NEG, Urine Bilirubin NEG, Urine Urobilinogen 0.2, Ur Leukocyte Esterase NEG, Ur Microscopic EXAM NOT REQUIRED, Urine Hemoglobin NEG, Urine Glucose NEG 03/25/17 0211: Ur Random Creatinine 54.9, Ur Random Sodium 5 L, Ur Random Potassium 33.8, Fraction Sodium Excret 0.2 03/24/175: Anion Gap 17 H, Estimated GFR 31 L, BUN/Creatinine Ratio 52.9 H, Glucose 102 H, Lactic Acid 1.1, Calcium 9.3, Total Bilirubin 1.9 H, AST 43, ALT 42, Alkaline Phosphatase 153 H, Creatine Kinase 145, Troponin I 0.01, Pro-B- Natriuretic Pept 790 H, Total Protein 8.2, Albumin 4.8, Globulin 3.4, Albumin/ Globulin Ratio 1.4, PT 30.8 H, INR 2.97 H, APTT 41 H, CBC w Diff NO MAN DIFF REQ, RBC 3.75 L, MCV 88.3, MCH 30.6, RDW 16.9 H, MPV 7.7, Gran % 75.0, Lymphocytes % 10.5 L, Monocytes % 10.4 H, Eosinophils % 3.6, Basophils % 0.5, Absolute Granulocytes 5.3, Absolute Lymphocytes 0.7 L, Absolute Monocytes 0.7 H, Absolute Eosinophils 0.2, Absolute Basophils 0, PUBS MCHC 34.7 Microbiology 03/25 210 URINE ROUT: Legionella Antigen - COMP 03/25 210 URINE ROUT: Streptococcus pneumoniae Antigen (M - COMP 03/25 0200 NASOPHARYN: Influenza Virus A & B Rapid Smear - COMP 03/25 123 LOWER RESP: Respiratory Culture - COLB 03/25 123 LOWER RESP: Gram Stain - COLB 03/24 2352 BLOOD: Blood Culture - RECD 03/24 2342 BLOOD: Blood Culture - RECD Impression/Plan: #CAP- only minimal cough. Patient was started on antibiotics. Plan: Will continue Unasyn at present and reassess. #DONATO/CKD- patient has been taking extra Lasix due to symptoms of edema feeling he has CHF. Plan: Agree with holding Lasix and obtain Cardiology consult. Follow renal function and if not improving will need nephrology evaluation. #S/P Fall- RLE trauma- no obvious fractures on X-rays (hip, knee, ankle), however significant contusions. Is on chronic Coumadin with slightly high normal INR. He has chronic LE edema (right > left). No DVT on US. Plan: PT eval- may benefit from ortho eval with knee injury pending clinical course. May need STR. #Hyponatremia- probably secondary to Lasix. Plan: Will follow up BEP. #Hyperlipidemia- on Atorvastatin. Plan: Continue Atorvastatin.
[2017-03-26 07:33] VITALS: BP 122/70
[2017-03-26 09:32] LABS: PT 22.7 SEC (9.4-12.5)
[2017-03-26 09:50] LABS: ABSOLUTE BASOPHIL COUNT 0 /CUMM (0.0-0.2); ABSOLUTE EOSINOPHIL COUNT 0.2 /CUMM (0.0-0.7); ABSOLUTE GRANULOCYTE CT 5.1 /CUMM (1.4-6.5); ABSOLUTE LYMPH COUNT 0.6 /CUMM (1.2-3.4); ABSOLUTE MONOCYTE COUNT 0.7 /CUMM (0.10-0.60); BASOPHIL % 0.5 % (0.0-2.0); EOSINOPHIL % 3.1 % (0-5); GRANULOCYTE % 77.6 % (42.2-75.2); HEMATOCRIT 30.4 % (42-52); MEAN CORPUSCULAR HGB 30.6 PG (27.0-31.0); MEAN CORPUSCULAR HGB CONC 34.2 G/DL (33.0-37.0); MEAN CORPUSCULAR VOLUME 89.5 FL (80.0-94.0); MEAN PLATELET VOLUME 8.8 FL (7.4-10.4); PLATELET COUNT 90 /CUMM (130-400); RBC DISTRIBUTION WIDTH 17.7 % (11.5-14.5); WHITE BLOOD CELL COUNT 6.6 /CUMM (4.8-10.8)
--- NOTE | 2017-03-26 11:22 | PN- Housestaff ---
[place] 03/26/17 1104: Subjective Follow-up For: CAP Acute on chronic kidney injury Hyponatremia Thrombocytopenia Subjective: Patient remained afebrile overnight. Seen and examined this morning. Patient denied any chest pain, chills, fever, nausea, vomiting, abdominal pain and dysuria. patient is complaining of right knee pain but under control with pain medications. Review of Systems Constitutional: Reports: no symptoms. EENTM: Reports: no symptoms. Cardiovascular: Reports: no symptoms. Respiratory: Reports: cough, sputum production. Gastrointestinal: Reports: no symptoms. Genitourinary: Reports: no symptoms. Musculoskeletal: Reports: see HPI. Neurological/Psychological: Reports: no symptoms. Objective Last 24 Hrs of Vital Signs/I&O Vital Signs Date Time Temp Pulse Resp B/P B/P Pulse O2 O2 Flow FiO2 Mean Ox Delivery Rate 03/26 927 73 122/70 03/26 0927 73 122/70 03/26 0733 97.5 73 20 122/70 91 03/25 2331 98.1 72 20 130/70 92 Room Air 03/25 2210 73 130/70 03/25 1600 98.4 73 20 130/70 94 Room Air 03/25 1600 98.4 73 20 130/70 94 Room Air 03/25 1323 97.8 72 20 100/58 94 Room Air Intake & Output 03/26 1600 03/26 0800 03/26 0000 Intake Total 1320 350 Output Total 900 300 Balance 420 50 Intake, Oral 1320 350 Output, Urine 900 300 Physical Exam General Appearance: Alert, Oriented X3, Cooperative Skin Temp/Moisture Exam: Warm/Dry Sepsis Skin Exam (color): Normal for Ethnicity HEENT: Atraumatic, PERRLA, EOMI Neck: Supple Cardiovascular: Normal S1, Normal S2 Lungs: Clear to Auscultation, Decreased breath sounds on right side Abdomen: Soft, No Tenderness Neurological: Normal Speech, Strength at 5/5 X4 Ext, Normal Tone, Sensation Intact Extremities: b/l pedal edema with chronic venous changes, pain in right knee with prepattelar swelling. Assessment/Plan Assessment: 76 YO M with PMH of atrial fibrillation on Coumadin, coronary artery disease S/P CABG, diastolic congestive heart failure with preserved ejection fraction, hypertension, hyperlipidemia, mitral repair, bioprosthetic aortic valve. He presented to emergency department with complaining of right knee pain and swelling after falling down on his knee 10 days ago when he rolled down and fell from his bed. Community accquired pneumonia: -Initially patient was on ceftriaxone and azithromycin that was changed to Unasyn after 100 mg every 6 -Urine strep pneumonia and legionella antigen was negative -Follow up on [facility], blood culture -[facility] Acute on chronic kidney injury: -Most likely due to dehydration considering the oral intake and patient was on Lasix that precipitated dehydration. -We will hold the Lasix for now considering his acute on chronic kidney injury and also patient has dizziness and risk of fall. -We will reassess the patient in the morning -Close monitoring of kidney function -Strict I's and O's -Avoid nephrotoxic meds -Encourage oral intake Hyponatremia: -Possibly due to hypovolemic hyponatremia due to dehydration -Follow-up BEP in the morning Thrombocytopenia: -Patient platelet count is 90. -We will monitor the platelet count. We will avoid any medication that can decrease the platelet count of cause platelet dysfunction. H/O A.fib with valve replacement: -Check PT/INR in the a.m. -We'll dose Coumadin accordingly with target INR of 2-3 -Cardiology consult appreciated in the a.m. Chronic medical conditions CAD S/P CABG, CHF, hypertension, hyperlipidemia, trombocytopenia, prostate cancer: -Continue home meds History of fall, right knee pain and swelling: -History excluded any fracture in the hip, knee, ankle -Pain control with Tylenol, and oxycodone -Dystrophic skin changes and poor peripheral pulses, with a history of CAD which raises suspicion for PAD -Doppler studies negative for any bursa collection or hematoma. CODE STATUS: Full code DVT prophylaxis: Coumadin Problem List: 1. Dehydration 2. Pneumonia 3. Acute on chronic kidney failure Pain Ratin Pain Location: right knee Pain Goal: Pain 4 or less Pain Plan: tylenol for mild pain percocet for moderate pain Tomorrow's Labs & Rationales: cbc/bep Navid Griffith MD 03/26/171953: Attending MD Review Statement Attending Statement Attending Statement: examined this patient, discuss w/resident/PA/OXIDATION ENGINEER, agreed w/resident/PA/OXIDATION ENGINEER, reviewed EMR data (avail), discussed with nursing, amended to note Attending Assessment/Plan: The patient was seen and discussed with house staff. Edema appears less today ( no furosemide given). No obvious fractures on X-rays. Await cardiology input regarding diuretics (Dr. Moreno group). Will give dose of Coumadin today. PT consult tomorrow- may need STR. Follow renal function and INR.
[2017-03-26 14:52] VITALS: BP 104/70
--- NOTE | 2017-03-26 20:32 | Cons- Cardiology ---
General Information and HPI Consulting Request Date of Consult: 03/26/17 Requested By: Tamir Hanna MD History of Present Illness: This patient is a 76 year old male with history of hypertension, hyperlipidemia and coronary artery disease status post CABG. He also carries a history of atrial fibrillation and has a permanent pacemaker. The patient presented to [facility] with complaints of right knee pain with swelling noted after a fall from bed. In addition, the patient has noted some left leg swelling and an overall increase in his weight. He does have a cough productive of white sputum along with shortness of breath. He otherwise denies chest discomfort, lightheadedness or palpitations. The patient had renal insufficiency with an elevated creatinine of 2.1 noted at the time of admission which has come down. Allergies/Medications Allergies: Coded Allergies: NO KNOWN ALLERGIES (12/09/13) Home Med List: Ferrous Sulfate 325 MG (65 MG IRON) TABLET 1 TAB PO BID SUPPLEMENT (Reported) Furosemide 80 MG TABLET 1 TAB PO QAM DIURETIC (Reported) Furosemide (Lasix) 40 MG TABLET 1 TAB PO QPM DIURETIC (Reported) Gabapentin 100 MG CAPSULE 1 CAP PO DAILY NERVE PAIN (Reported) Linaclotide (Linzess) 145 MCG CAPSULE 1 CAP PO DAILY GI (Reported) Loratadine (Claritin) 10 MG TABLET 1 TAB PO DAILY ALLERGIES (Reported) Metoprolol Tartrate 25 MG TABLET 1 TAB PO BID HEART/BP (Reported) Paroxetine HCl (Paxil) 10 MG TABLET 1 TAB PO DAILY MENTAL HEALTH (Reported) Rosuvastatin Calcium (Crestor) 20 MG TABLET 1 TAB PO EOD CHOLESTEROL ( Reported) Spironolactone 25 MG TABLET 1 TAB PO DAILY DIURETIC (Reported) Tamsulosin HCl 0.4 MG CAP.ER.24H 1 CAP PO DAILY PROSTATE (Reported) Umeclidinium Brm/Vilanterol Tr (Anoro Ellipta 62.5-25 Mcg INH) 62.5 MCG-25 MCG/ ACTUATION BLST.W.DEV 1 PUFF INH DAILY COPD (Reported) Warfarin Sodium (Coumadin) 7.5 MG TABLET 1 TAB PO DAILY BLOOD THINNER ( Reported) Review of Systems Review of Systems: A twelve point review of systems is unremarkable. Past History Travel History Traveled to [place] past 21 day No Medical History Blood Transfusion Hx: Yes Neurological: NONE EENT: NONE Cardiovascular: AFIB, CAD, CHF, hypertension, hyperlipidemia Respiratory: NONE Gastrointestinal: NONE Hepatic: NONE Renal: NONE Musculoskeletal: chronic back pain Psychiatric: NONE Endocrine: NONE Blood Disorders: thrombocytopenia Cancer(s): prostate cancer Surgical History Surgical History: CABG (X2) Family History Relations & Conditions If Any: Relation not specified for: *No pertinent family history Psychosocial History Smoking Status: Former Smoker ETOH Use: occasional use Functional Ability ADLs Independent: dressing, eating, toileting, bathing. Exam & Diagnostic Data Vital Signs and I&O Vital Signs Date Time Temp Pulse Resp B/P B/P Pulse O2 O2 Flow FiO2 Mean Ox Delivery Rate 03/26 1452 98.0 76 16 104/70 95 03/26 0928 73 122/70 03/26 0927 73 122/70 03/26 0733 97.5 73 20 122/70 91 03/25 2331 98.1 72 20 130/70 92 Room Air 03/25 2210 73 130/70 Intake & Output 03/26 1600 03/26 0800 03/26 0000 03/25 1600 03/25 0800 03/25 0000 Intake Total 870 1320 350 940 130 Output Total 900 300 950 150 200 Balance 870 420 50 -10 -20 -200 Intake, IV 150 320 130 Intake, Oral 720 1320 350 620 Number 1 0 Bowel Movements Output, Urine 900 300 950 150 200 Patient 195 lb 160 lb Weight Weight Reported by Patient Reported by Patient Measurement Method Physical Exam: General: WD/obese male in NAD; alert and oriented x3 HEENT: NC/AT, PERRL, EOMI Neck: no JVD, no carotid bruit Heart: RRR with 2/6 systolic murmur Lungs: clear bilaterally Abdomen: soft, NT, +ve bowel sounds Extremities: 2+ leg edema Assessment/Plan Assessment/Plan * There is no evidence of decompensated CHF in this patient at this time. His shortness of breath is due to his lung infiltrate. The patient's attempt to diurese himself has resulted in a pre-reanl state. This has improved over the course of his admission. I would begin Lasix 40mg PO tomorrow. It should be noted that Gabapentin causes fluid retention and should be eliminated if possible. Consult Acknowledgment - Thank you for your consult request.
[2017-03-26 23:08] VITALS: BP 120/68
[2017-03-27 07:28] VITALS: BP 112/70
--- NOTE | 2017-03-27 08:17 | PN- Housestaff ---
Duy LIND,Christine 03/27/17 0817: Subjective Follow-up For: Upper respiratory infection Acute on chronic kidney injury (improved) Right knee injury Hyponatremia (improved) Complaints: pain scale (0-10) Subjective: Patient is seen and examined at bedside, no overnight events, continues to be afebrile, complains of pain in right ankle which is 8/10 in severity, however he reports improvement of his right knee pain, he also reports improvement of his cough and expectoration. Patient denies any fever, chills, nausea, vomiting or diarrhea Review of Systems Constitutional: Denies: chills, fever. Cardiovascular: Denies: chest pain, palpitations, peripheral edema. Respiratory: Reports: cough, sputum production. Gastrointestinal: Denies: no symptoms. Genitourinary: Denies: no symptoms. Musculoskeletal: Reports: joint pain, joint swelling. Skin: Denies: no symptoms. Objective Last 24 Hrs of Vital Signs/I&O Vital Signs Date Time Temp Pulse Resp B/P B/P Pulse O2 O2 Flow FiO2 Mean Ox Delivery Rate 03/27 1440 98.2 77 20 116/70 08 1240 Room Air 03/27 0941 116/70 03/27 0940 116/70 03/27 0800 Room Air 03/27 0728 98.2 77 20 112/70 90 Room Air 03/26 2308 97.4 74 20 120/68 90 Room Air 03/26 2251 74 104/70 Intake & Output 03/27 1600 08 0800 03/27 0000 Intake Total 820 Output Total 225 400 Balance 820 -225 -400 Intake, IV 120 Intake, Oral 700 Number 1 Bowel Movements Output, Urine 225 400 Physical Exam General Appearance: Alert, Oriented X3, Cooperative, No Acute Distress Skin: No Rashes, No Breakdown, No Significant Lesion HEENT: Atraumatic, PERRLA, EOMI, Mucous Membr. moist/pink Neck: Supple, No JVD Cardiovascular: Normal S1, Normal S2, No Murmurs Lungs: Clear to Auscultation, Normal Air Movement Abdomen: Normal Bowel Sounds, Soft, No Tenderness Neurological: Normal Speech Extremities: RIGHIT KNEE IS SWOLLEN, BRUISED AND TENDER, RIGHT le SHOWS 2 + PITTING EDEMA, RIGHT ANKLE IS SOLLEN AND TENDER, CHRONIC SKIN DISCOLORATION AND ATROPHIC CHANGES Vascular: Normal Pulses, Pulses Symmetrical Sepsis Peripheral Pulse Location: Radial Assessment/Plan Assessment: 76 YO M with PMH of atrial fibrillation on Coumadin, coronary artery disease S/P CABG, diastolic congestive heart failure with preserved ejection fraction, hypertension, hyperlipidemia, mitral repair, bioprosthetic aortic valve. He presented to emergency department with complaining of right knee pain and swelling after falling down on his knee 10 days ago when he rolled down and fell from his bed. ? COMMUNITY ACQUIRED PNEUMONIA ON Presentation the patient was afebrile and had normal WBC, however chest x-ray showed features suggestive of pneumonia Today patient denies any cough or expectoration -Initially patient was on ceftriaxone and azithromycin that was changed to Unasyn after 100 mg every 6 -Urine strep pneumonia and legionella antigen was negative -Follow up on [facility], blood culture -[facility] Acute on chronic kidney injury: Improved -Most likely due to dehydration considering the oral intake and patient was on Lasix that precipitated dehydration. -Patient was started on Lasix 40 mg by mouth daily this morning as per Dr. Maldonado recommendation -As oupatient pt follow DR. Prakash , I discussed with Dr Ugalde (Dr Prakash colleague in the same group) he recommended to discharge the patient on his home dose of Lasix 80 mg in the a.m. and 40 mg in the p.m. since his renal function improved, for further follow up with his electronic calibration technician as an outpatient -Close monitoring of kidney function -Strict I's and O's -Avoid nephrotoxic meds -Encourage oral intake Hyponatremia: Improved -Possibly due to hypovolemic hyponatremia due to dehydration -Follow-up [facility] in the morning Thrombocytopenia: -Patient platelet count is 90. -We will monitor the platelet count. We will avoid any medication that can decrease the platelet count of cause platelet dysfunction. H/O A.fib with valve replacement: INR today was 2.14 We will give Coumadin 7.5 mg, target INR 23 Follow-up one PT/INR and dose Coumadin accordingly Chronic medical conditions CAD S/P CABG, CHF, hypertension, hyperlipidemia, trombocytopenia, prostate cancer: -Continue home meds History of fall, right knee pain and swelling: -History excluded any fracture in the hip, knee, ankle -Pain control with Tylenol, and oxycodone -Dystrophic skin changes and poor peripheral pulses, with a history of CAD which raises suspicion for PAD -Doppler studies negative for any bursa collection or hematoma. Patient is a stable for discharge today to [facility] for further follow-up as his PCP as an outpatient CODE STATUS: Full code DVT prophylaxis: Coumadin Regular diet Problem List: 1. Acute on chronic kidney failure 2. Dehydration 3. Pneumonia 4. Contusion of right knee Pain Ratin Pain Location: right ankle Pain Goal: Pain 4 or less Pain Plan: per pathway Tomorrow's Labs & Rationales: n/a DVT/Prophylaxis: mechanical, pharmacological Jeferson Henry MD 03/27/17 1611: Attending MD Review Statement Attending Statement Attending MD Statement: examined this patient, discuss w/resident/PA/CONFIDENTIAL INVESTIGATOR, agreed w/resident/PA/CONFIDENTIAL INVESTIGATOR, reviewed EMR data (avail) Attending Assessment/Plan: Renal function normalized, breathing normal, no evidence of aspiration. Patient is stable for discharge to [facility], will continue current management
[2017-03-27 08:47] LABS: PT 22.3 SEC (9.4-12.5)
[2017-03-27 09:23] LABS: ABSOLUTE BASOPHIL COUNT 0.1 /CUMM (0.0-0.2); ABSOLUTE EOSINOPHIL COUNT 0.2 /CUMM (0.0-0.7); ABSOLUTE GRANULOCYTE CT 5.2 /CUMM (1.4-6.5); ABSOLUTE LYMPH COUNT 0.7 /CUMM (1.2-3.4); ABSOLUTE MONOCYTE COUNT 0.7 /CUMM (0.10-0.60); BASOPHIL % 0.8 % (0.0-2.0); EOSINOPHIL % 2.8 % (0-5); GRANULOCYTE % 76.4 % (42.2-75.2); HEMATOCRIT 29.5 % (42-52); MEAN CORPUSCULAR HGB 30.8 PG (27.0-31.0); MEAN CORPUSCULAR HGB CONC 34.7 G/DL (33.0-37.0); MEAN CORPUSCULAR VOLUME 88.9 FL (80.0-94.0); PLATELET COUNT 82 /CUMM (130-400); RBC DISTRIBUTION WIDTH 17.6 % (11.5-14.5); RED BLOOD CELL CT 3.32 /CUMM (4.70-6.10); WHITE BLOOD CELL COUNT 6.8 /CUMM (4.8-10.8)
[2017-03-27] MEDS ORDERED: TYLENOL325 M1 PO (09:23)
[2017-03-27] MEDS ORDERED: LASIX40 M1 PO ×3 (09:23→13:29)
--- NOTE | 2017-03-27 09:24 | Patient Discharge Instructions ---
Discharge Instructions General Discharge Information You were seen/treated for: Acute renal injury Special Instructions: Please follow-up with your senior tax manager within 1 week after discharge. Please follow up with your primary care doctor after discharge. Please check your INR level. Diet Continue normal diet: No Recommended Diet: Heart Healthy Activity Full Activity/No Limits: No Acute Coronary Syndrome Inclusion Criteria At DC or during hospital stay patient has or had the following: ACS DIAGNOSIS No Discharge Core Measures Meds if any: Prescribed or Continued at Discharge Meds if any: NOT Prescribed or Continued at Discharge Congestive Heart Failure Inclusion Criteria At DC or during hospital stay patient has or had the following: CHF DIAGNOSIS No Discharge Core Measures Meds if any: Prescribed or Continued at Discharge Meds if any: NOT Prescribed or Continued at Discharge Cerebrovascular accident Inclusion Criteria At DC or during hospital stay patient has or had the following: CVA/TIA Diagnosis No Discharge Core Measures Meds if any: Prescribed or Continued at Discharge Meds if any: NOT Prescribed or Continued at Discharge Venous thromboembolism Inclusion Criteria VTE Diagnosis No VTE Type NONE VTE Confirmed by (Test) NONE Discharge Core Measures - Per Current guidelines, there needs to be overlap - treatment for the first 5 days of Warfarin therapy. - If discharged on Warfarin prior to 5 days of - overlap therapy, the patient will need to be - assessed for post discharge needs including - *Post discharge parental anticoagulation - *Warfarin and/or parental anticoagulation education - *Follow up date to check INR post discharge At least 5 days overlap therapy as Inpatient No Meds if any: Prescribed or Continued at Discharge Note: Overlap Therapy is Warfarin and Anticoagulant Meds if any: NOT Prescribed or Continued at Discharge
--- NOTE | 2017-03-27 11:13 | Discharge Summary ---
See Addendum Visit Information Visit Dates Admission Date: 03/24/17 Discharge Date: 03/27/2017 Hospital Course Course Attending Physician: Jeferson Henry MD Primary Care Physician: Jaswinder LIND,Ady Consulting Request: Consulting Specialty: Cardiology Hospital Course: This is 76-year-old male with medical history of atrial fibrillation on Coumadin , coronary artery disease S/P CABG, diastolic congestive heart failure with preserved ejection fraction, hypertension, hyperlipidemia, mitral repair, bioprosthetic aortic valve. He presented to emergency department with complaining of right knee pain and swelling after falling down on his knee 10 days ago when he rolled down and fell from his bed. Patient reported that for the past 1-2 months he started to complain off difficulty ambulation, he states it's progressing and currently he cannot walk completely dependent. Also he reports that 2-3 month ago he was admitted to [facility] he was little bit confused if it's due to his congestive heart failure or pneumonia. Patient reports undergo recent colonoscopy around 3-4 weeks ago. He stated that usually check his weight at home and at just his Lasix regimen according to that, he reports that he is compliant with that but during the holiday patient reports taking some salty food and he gain some weighs and because of that increased his Lasix regimen, he reports feeling dehydrated and thirsty. Problem list: -Acute kidney injury -Hyponatremia -Generalized weakness status post fall -Right lung consolidation-CAP. Hospital course: Patient was admitted to general medicine floor, his by mouth Lasix where held, his renal function improved during his hospital course and normalize by the fourth day. Cardiology was consulted and on Monday they recommend to start the patient on low-dose Lasix 40 mg by mouth. Prior to admission we contact kier pleater brian Faith MD recommend to put the patient in his home regimen of Lasix and that he will need to follow-up within one week with his kier pleater as his renal function went back to baseline. Patient received 1 dose of IV ceftriaxone and azithromycin ED, that was switched to IV Unasyn received a total dose of 4 days of IV antibiotic and as the patient asymptomatic , we discharge him without any oral antibiotic for now. The right knee swelling with evaluated by ultrasound that came back negative for hematoma as the patient on warfarin. Patient warfarin withheld on the first day as his INR was 2.8 and restarted the next day and does it accordingly. Physical therapy recommended short-term rehabilitation giving the patient generalized weakness. Imaging: EXAMINATION: CT HEAD WITHOUT CONTRAST CT CERVICAL SPINE WITHOUT CONTRAST CLINICAL INFORMATION: Confused. On Coumadin. COMPARISON: None. TECHNIQUE: Imaging was performed from the skull base to vertex without intravenous administration of contrast. In addition, helical noncontrast CT imaging was acquired through the cervical spine and source images were reviewed along with axial reconstructions and sagittal and coronal MPRs. DLP: 1339.4 mGy-cm FINDINGS: HEAD: No intracranial mass, hemorrhage, or midline shift is visualized. There is atrophy with prominence of the ventricles and the sulci and hypodensity of the periventricular white matter due to chronic small vessel ischemic disease. There is vascular calcifications of the internal carotid arteries and vertebral arteries bilaterally. No extra-axial collections are identified. Small amount of mucosal thickening present in the ethmoid sinuses. Mastoid air cells are normally aerated. CERVICAL SPINE: There is no evidence of acute cervical spine fracture. Vertebrae have normal height and alignment. There is been fusion with anterior plate and screws C4-C6. Cervical disc height narrowing with endplate spurs and irregularity of the endplates at C3-C4 and C6-C7. The posterior spurs at the uncinate process at C3-C4 encroach into the neural foramina bilaterally. There is bilateral facet joint arthrosis most significant at C1-C2 and C2-C3. No pre- or paravertebral soft tissue abnormality is identified. Ground glass opacity at the dependent left upper lobe along the major fissure. Emphysematous lucencies of lung apices subpleural lung. Pacemaker leads seen at the upper mediastinum. Status post median sternotomy. There is atherosclerotic vascular wall calcifications of aorta and origin of great vessels. There are vascular wall calcification of the carotid artery occlusion bilaterally in the soft tissues of the neck. IMPRESSION: 1. No acute intracranial pathology. 2. No CT evidence of acute cervical spine fracture or traumatic subluxation EXAM TYPE: US - US-SUPERFICIAL IMAGING EXTREMI EXAMINATION: US SUPERFICIAL IMAGING, EXTREMITY CLINICAL INFORMATION: Pain and swelling status post fall. COMPARISON: Right knee films dated 03/24/2017. TECHNIQUE: Focused ultrasound of the right knee was performed. FINDINGS: In the posterior medial popliteal fossa, no focal fluid collection is seen. As seen on the plain film, there is prominent prepatellar soft tissue swelling without significant defined fluid collection or soft tissue mass seen. No significant hyperemia is seen with color Doppler imaging. IMPRESSION: Prominent prepatellar soft tissue swelling without defined bursal collection or defined hematoma formation. EXAM TYPE: RAD - XRY-ANKLE 3 OR MORE VIEWS R; XRY-CHEST XRAY, TWO VIEWS EXAMINATION: Right ankle and chest x-ray. CLINICAL INFORMATION: Right ankle pain. Chest pain status post fall. COMPARISON: Chest x-ray 12/24/2015 TECHNIQUE: AP, lateral, and mortise views of the right ankle. Chest PA and lateral views FINDINGS: RIGHT ANKLE: There is no visible acute fracture or dislocation. There is bimalleolar soft tissue swelling. The ankle mortise and subtalar joints are normal. There is dorsal talonavicular spurring. No lytic process seen. CHEST: There is a right lower lobe consolidation. Rest of lungs are expanded and clear. Heart size is enlarged with mild prominence of pulmonary vascularity but no congestion. There are dual pacer electrodes in right atrium and right ventricle. There are mediastinal randall and median sternotomy sutures from previous CABG. No gross bony abnormality seen. IMPRESSION: Right lower lobe consolidation/infiltrate. Bimalleolar soft tissue swelling without any underlying visible fracture or dislocation. Allergies: Coded Allergies: NO KNOWN ALLERGIES (12/09/13) Pertinent Lab Results: Laboratory Tests 03/27 03/26 0715 0631 Chemistry Sodium (137 - 145 mmol/L) 137 136 L Potassium (3.5 - 5.1 mmol/L) 4.0 3.8 Chloride (98 - 107 mmol/L) 98 96 L Carbon Dioxide (22 - 30 mmol/L) 28 26 Anion Gap (5 - 16) 12 14 BUN (9 - 20 mg/dL) 45 H 66 H Creatinine (0.7 - 1.2 mg/dL) 1.2 1.4 H Estimated GFR (>60 ml/min) 59 L 50 L BUN/Creatinine Ratio (7 - 25 %) 37.5 H 47.1 H Coagulation PT (9.4 - 12.5 SEC) 22.3 H 22.7 H INR (0.90 - 1.17) 2.14 H 2.18 H Hematology CBC w Diff NO MAN DIFF REQ NO MAN DIFF REQ WBC (4.8 - 10.8 /CUMM) 6.8 6.6 RBC (4.70 - 6.10 /CUMM) 3.32 L 3.40 L Hgb (14.0 - 18.0 G/DL) 10.2 L 10.4 L Hct (42 - 52 %) 29.5 L 30.4 L MCV (80.0 - 94.0 FL) 88.9 89.5 MCH (27.0 - 31.0 PG) 30.8 30.6 RDW (11.5 - 14.5 %) 17.6 H 17.7 H Plt Count (130 - 400 /CUMM) 82 L 90 L MPV (7.4 - 10.4 FL) 9.0 8.8 Gran % (42.2 - 75.2 %) 76.4 H 77.6 H Lymphocytes % (20.5 - 51.1 %) 9.9 L 8.7 L Monocytes % (1.7 - 9.3 %) 10.1 H 10.1 H Eosinophils % (0 - 5 %) 2.8 3.1 Basophils % (0.0 - 2.0 %) 0.8 0.5 Absolute Granulocytes (1.4 - 6.5 /CUMM) 5.2 5.1 Absolute Lymphocytes (1.2 - 3.4 /CUMM) 0.7 L 0.6 L Absolute Monocytes (0.10 - 0.60 /CUMM) 0.7 H 0.7 H Absolute Eosinophils (0.0 - 0.7 /CUMM) 0.2 0.2 Absolute Basophils (0.0 - 0.2 /CUMM) 0.1 0 PUBS MCHC (33.0 - 37.0 G/DL) 34.7 34.2 Disposition Summary Disposition Principal Diagnosis: -Acute kidney injury -Generalized weakness status post fall Additional Diagnosis: -Hyponatremia -Right lung consolidation-CAP. Discharge Disposition: SNF ([facility]) Discharge Instructions General Discharge Information Code Status: Full Code Patient's Diet: Heart healthy diet Patient's Activity: As TOrelated Follow-Up Instructions/Appts: Please follow-up with your kier pleater within 1 week after discharge. Please follow up with your primary care doctor after discharge. Medications at Discharge Discharge Medications: Stop taking the following medications: Gabapentin (Gabapentin) 100 MG CAPSULE ORAL DAILY Qty = 90 Continue taking these medications: Metoprolol Tartrate (Metoprolol Tartrate) 25 MG TABLET 1 Tablet ORAL TWICE DAILY Qty = 180 Loratadine (Claritin) 10 MG TABLET 1 Tablet ORAL DAILY Ferrous Sulfate (Ferrous Sulfate) 325 MG (65 MG IRON) TABLET 1 Tablet ORAL TWICE DAILY Warfarin Sodium (Coumadin) 7.5 MG TABLET 1 Tablet ORAL DAILY Tamsulosin HCl (Tamsulosin HCl) 0.4 MG CAP.ER.24H 1 Capsule ORAL DAILY Qty = 90 Furosemide (Furosemide) 80 MG TABLET 1 Tablet ORAL Every Morning Spironolactone (Spironolactone) 25 MG TABLET 1 Tablet ORAL DAILY Qty = 30 Umeclidinium Brm/Vilanterol Tr (Anoro Ellipta 62.5-25 Mcg INH) 62.5 MCG-25 MCG/ ACTUATION BLST.W.DEV 1 PUFF Inhale through mouth DAILY Qty = 180 Paroxetine HCl (Paxil) 10 MG TABLET 1 Tablet ORAL DAILY Qty = 90 Linaclotide (Linzess) 145 MCG CAPSULE 1 Capsule ORAL DAILY Qty = 90 Rosuvastatin Calcium (Crestor) 20 MG TABLET 1 Tablet ORAL Every other day Qty = 45 Furosemide (Lasix) 40 MG TABLET 1 Tablet ORAL Every night Days = 30 Start taking the following new medications: Acetaminophen (Tylenol) 325 MG TABLET 650 Milligram ORAL EVERY 8 HOURS as needed for PAIN SCALE 1-3 (MILD) Qty = 30 No Refills Copies To: Jaswinder LIND,Ady; Marcell LIND,[facility]
[2017-03-27 14:40] VITALS: BP 116/70
[2017-03-27 14:49] VITALS: BP 110/70
--- NOTE | 2017-03-27 15:48 | PN- Student ---
Subjective Subjective: Pt is a 76 y/o male PMH significant for afib /w coumadin, CAD s/p CABG + aortic and mitral valve replacement, CHF, HTN, HLD, thromocytopenia, prostate cancer admitted for incidental PNA on CXR and right knee/ankle pain secondary to a fall. Patient reports 13 days ago he fell out of bed and injured his right knee and ankle. He states he did not seek medical care immediately after because he wanted to see if sxs would resolve on its own. His pain continued to worsen and he also began having swelling of his knee when he decided to be seen in the ED 2 days ago. In the ED patient reported he also has felt fatigued for the past month and complained of a dry cough. Patient recieved a CXR which showed right lower lobe consolidation/infiltrate. Pt was subsequentally admitted to [facility] for observation and tx of PNA. Patient began abx tx with ceftriaxone + azithromycin --> unasyn. Patient reports today his knee/ankle pain and swelling have improved. He continues to feel fatigue. Denies having a cough, fever, or chill. Patient reports having episodes of epistaxis whenever he blows his nose, he states this has been a chronic issue. PSH: cervical spinal fusion, mechanical aortic valve, mitral valve repiar PMH: CAD s/p CABG, CHF, HTN, HLD, thromocytopenia, prostate cancer Social: regularly drinks a glass of wine with dinner, quit smoking many years ago. FMH: father of stroke 88 y/o, mother of braest cancer 84 y/o, has a brother who is healthy. Objective Objective: Laboratory Tests 03/27 0715 Chemistry Sodium (137 - 145 mmol/L) 137 Potassium (3.5 - 5.1 mmol/L) 4.0 Chloride (98 - 107 mmol/L) 98 Carbon Dioxide (22 - 30 mmol/L) 28 Anion Gap (5 - 16) 12 BUN (9 - 20 mg/dL) 45 H Creatinine (0.7 - 1.2 mg/dL) 1.2 Estimated GFR (>60 ml/min) 59 L BUN/Creatinine Ratio (7 - 25 %) 37.5 H Coagulation PT (9.4 - 12.5 SEC) 22.3 H INR (0.90 - 1.17) 2.14 H Hematology CBC w Diff NO MAN DIFF REQ WBC (4.8 - 10.8 /CUMM) 6.8 RBC (4.70 - 6.10 /CUMM) 3.32 L Hgb (14.0 - 18.0 G/DL) 10.2 L Hct (42 - 52 %) 29.5 L MCV (80.0 - 94.0 FL) 88.9 MCH (27.0 - 31.0 PG) 30.8 RDW (11.5 - 14.5 %) 17.6 H Plt Count (130 - 400 /CUMM) 82 L MPV (7.4 - 10.4 FL) 9.0 Gran % (42.2 - 75.2 %) 76.4 H Lymphocytes % (20.5 - 51.1 %) 9.9 L Monocytes % (1.7 - 9.3 %) 10.1 H Eosinophils % (0 - 5 %) 2.8 Basophils % (0.0 - 2.0 %) 0.8 Absolute Granulocytes (1.4 - 6.5 /CUMM) 5.2 Absolute Lymphocytes (1.2 - 3.4 /CUMM) 0.7 L Absolute Monocytes (0.10 - 0.60 /CUMM) 0.7 H Absolute Eosinophils (0.0 - 0.7 /CUMM) 0.2 Absolute Basophils (0.0 - 0.2 /CUMM) 0.1 PUBS MCHC (33.0 - 37.0 G/DL) 34.7 Current Medications Sig/Ifeanyi Start time Last Medication Dose Stop Time Status Admin Acetaminophen 650 MG Q6 PRN 03/25 0115 AC (Tylenol) Acetaminophen/ 1 TAB Q4 PRN 03/24 2300 AC 03/25 Codeine Phosphate 0930 (Tylenol #3) Ampicillin Sodium/ 1,500 MG Q6 03/25 0630 AC 03/27 Sulbactam Sodium 1131 (Unasyn) Sodium Chloride 100 ML (Normal Saline 0.9%) Atorvastatin Calcium 80 MG 1700 03/25 1700 AC 03/26 (Lipitor) 1843 Budesonide/ 2 PUF BID 03/25 1000 AC 03/27 Formoterol Fumarate 0939 (SYMBICORT) Furosemide 40 MG DAILY 03/27 1000 AC 03/27 (Lasix) 0940 Hydrocodone Bitart/ 1 TAB Q8P PRN 03/25 011 AC 01/07 Acetaminophen 0652 (Vicodin) Metoprolol Tartrate 25 MG BID 03/25 999 AC 03/27 (Lopressor) 0941 Oxycodone HCl 10 MG Q8P PRN 03/25 0115 AC 03/27 (Roxicodone) 0410 Paroxetine HCl 10 MG DAILY 03/25 999 AC 03/27 (Paxil) 0941 Tamsulosin HCl 0.4 MG DAILY 03/25 999 AC 03/27 (Flomax) 0940 Tiotropium [place] 1 PUF DAILY 03/25 999 AC 03/27 (Spiriva) 0940 Trimethobenzamide HCl 200 MG ONCE PRN 03/25 0230 AC (Tigan) Warfarin Sodium 5 MG COUMADIN 1700 ONE 03/27 1700 AC (Coumadin) 03/27 170 Warfarin Sodium 2.5 MG COUMADIN 1700 ONE 03/27 1700 AC (Coumadin) 03/27 170 Laboratory Tests 03/27 0715 Chemistry Sodium (137 - 145 mmol/L) 137 Potassium (3.5 - 5.1 mmol/L) 4.0 Chloride (98 - 107 mmol/L) 98 Carbon Dioxide (22 - 30 mmol/L) 28 Anion Gap (5 - 16) 12 BUN (9 - 20 mg/dL) 45 H Creatinine (0.7 - 1.2 mg/dL) 1.2 Estimated GFR (>60 ml/min) 59 L BUN/Creatinine Ratio (7 - 25 %) 37.5 H Coagulation PT (9.4 - 12.5 SEC) 22.3 H INR (0.90 - 1.17) 2.14 H Hematology CBC w Diff NO MAN DIFF REQ WBC (4.8 - 10.8 /CUMM) 6.8 RBC (4.70 - 6.10 /CUMM) 3.32 L Hgb (14.0 - 18.0 G/DL) 10.2 L Hct (42 - 52 %) 29.5 L MCV (80.0 - 94.0 FL) 88.9 MCH (27.0 - 31.0 PG) 30.8 RDW (11.5 - 14.5 %) 17.6 H Plt Count (130 - 400 /CUMM) 82 L MPV (7.4 - 10.4 FL) 9.0 Gran % (42.2 - 75.2 %) 76.4 H Lymphocytes % (20.5 - 51.1 %) 9.9 L Monocytes % (1.7 - 9.3 %) 10.1 H Eosinophils % (0 - 5 %) 2.8 Basophils % (0.0 - 2.0 %) 0.8 Absolute Granulocytes (1.4 - 6.5 /CUMM) 5.2 Absolute Lymphocytes (1.2 - 3.4 /CUMM) 0.7 L Absolute Monocytes (0.10 - 0.60 /CUMM) 0.7 H Absolute Eosinophils (0.0 - 0.7 /CUMM) 0.2 Absolute Basophils (0.0 - 0.2 /CUMM) 0.1 PUBS MCHC (33.0 - 37.0 G/DL) 34.7 Vital Signs Date Time Temp Pulse Resp B/P B/P Pulse O2 O2 Flow FiO2 Mean Ox Delivery Rate 03/27 1449 98.1 78 20 110/70 97 Room Air 03/27 1440 98.2 77 20 116/70 08 1240 Room Air 03/27 0941 116/70 03/27 0940 116/70 03/27 0800 Room Air 03/27 0728 98.2 77 20 112/70 90 Room Air 03/26 2308 97.4 74 20 120/68 90 Room Air 03/26 2251 74 104/70 Physical exam: General: Patient was sleeping comfortabely prior to interview. No acute distress. Cardio: Normal s1/s2 with a 2/6 systolic murmur heard best over the left sternal border. No gallops or rubs. Pulmonary: inspiratory wheeze. No crackles or rhonchi. Neck: supple MSK: multiple patches of ecchymosis surrounding the right knee with minor edema compared to the left. 1+ pitting edema noted bilateral lower extremitis. Assessment/Plan Assessment: Pt is a 76 y/o male PMH significant for a.fib /w coumadin, CAD s/p CABG + aortic and mitral valve replacement, CHF, HTN, HLD, thromocytopenia, prostate cancer admitted for incidental PNA on CXR and right knee/ankle pain secondary to a fall. Problem list: 1. CAP -incidental CXR findings of PNA. Patient denies fever or cough. No leukocytosis on CBC. -possibly consider a pneumonitis as opposed to CAP given clinical picture 2. DONATO -BUN:Cr ratio >20, likely indicates pre-renal azotemia secondary to volume depletion from lasix use for CHF -hydrate patient with IV fluids, continue lasix, BUN:CR ratio has slowely decreased since admission -discontinue gabapentin due peripheral edema 3. Afib -continue warfarin therapy. -EKG showed irregular irregular rhythm
== END 2017-03-27 15:35 | DRG 682 ==
LOC: ERH 19:25 → 2NB 23:50 → ERHI 23:50 → ENRESERV 03-25 01:48 → 2NB 03-25 04:05 → ENPENDDIS 03-27 14:08 → ENTRNSPT 03-27 15:26 → EDTRNSPT 03-27 15:32 → EDTRNSPTSTS 03-27 15:32 → 2NB 03-27 15:35 → CMPTRNSPT 03-27 16:11
PROVIDERS: Internal Medicine Hematology & Oncology; Pediatrics; Student in an Organized Health Care Education/Training Program
DX: N17.9 Acute kidney failure, unspecified (principal); J18.9 Pneumonia, unspecified organism; D69.6 Thrombocytopenia, unspecified; I13.0 Hypertensive heart and chronic kidney disease with heart failure and stage 1 through stage 4 chronic kidney disease, or unspecified chronic kidney disease; I48.91 Unspecified atrial fibrillation; I50.32 Chronic diastolic (congestive) heart failure; E87.1 Hypo-osmolality and hyponatremia; E86.0 Dehydration; S80.01XA Contusion of right knee, initial encounter; W19.XXXA Unspecified fall, initial encounter; N18.9 Chronic kidney disease, unspecified; Z79.01 Long term (current) use of anticoagulants; I25.10 Atherosclerotic heart disease of native coronary artery without angina pectoris; Z95.1 Presence of aortocoronary bypass graft; Z85.46 Personal history of malignant neoplasm of prostate; Z95.0 Presence of cardiac pacemaker; E78.5 Hyperlipidemia, unspecified; Z95.2 Presence of prosthetic heart valve; Z87.891 Personal history of nicotine dependence
CPT/HCPCS: 2NBSP; 84133; 84300; ERO; 36415; 71046; 73501; 73562-RT; 73610-RT; 76881; 81003; 82436; 82570; 87040; 87070; 87449; 87450; 87804; 87804-59; 93005; 93010; 97110-GO; 97116-GO; 97161-GP; 97530-GO; 99291; J0456; J0696; J3490; J7040

== ENCOUNTER 2017-08-28 13:51 | Inpatient (IN) | payer OTHER ==
[~2017-08-28] VITALS: Ht 170.2 cm; Wt 82.6 kg
[~2017-08-28 13:51] MED LIST changes: +ANORO ELLIPTA1 EACH INH; +COUMADIN7.5 M1 PO; +CRESTOR20 M2 PO; +FUROSEMIDE80 M1 PO; +GABAPENTIN100 M2 PO; +LASIX40 M1 PO; +LINZESS145 MC1 PO; +METOPROLOL TART25 M1 PO; +PAXIL10 M1 PO; +SPIRONOLACTONE25 M1 PO; +TAMSULOSIN HCL0.4 M1 PO; +TYLENOL325 M1 PO
--- NOTE | 2017-08-28 14:27 | ED HAND/WRIST INJURY COMPLAINT ---
History of Present Illness General Chief Complaint: Hand or Wrist Injury Stated Complaint: SWOLLEN R HAND INDEX FINGER Source: patient, old records Exam Limitations: no limitations Vital Signs & Intake/Output Vital Signs & Intake/Output Vital Signs Date Time Temp Pulse Resp B/P B/P Pulse O2 O2 Flow FiO2 Mean Ox Delivery Rate 08/29 0514 98.0 72 18 100/54 93 Room Air 08/29 0148 98.6 66 20 104/60 93 Room Air 08/29 0148 98.6 66 20 104/60 93 Room Air 08/28 1929 97.4 70 20 100/60 96 Room Air 08/28 1929 97.4 70 20 100/60 96 Nasal Cannula 08/28 1731 97.7 66 18 104/65 94 Room Air 08/28 1547 67 18 114/70 97 Room Air 08/28 1407 96.4 66 20 88/55 96 Room Air ED Intake and Output 08/29 0000 08/28 1200 Intake Total 1240 Output Total 300 Balance 940 Intake, IV 1000 Intake, Oral 240 Output, Urine 300 Patient 183 lb Weight Weight Reported by Patient Measurement Method Allergies Coded Allergies: NO KNOWN ALLERGIES (12/09/13) Reconcile Medications Acetaminophen (Tylenol) 325 MG TABLET 650 MG PO Q8 PRN PAIN SCALE 1-3 (MILD) Ferrous Sulfate 325 MG (65 MG IRON) TABLET 1 TAB PO BID SUPPLEMENT (Reported) Furosemide 80 MG TABLET 1 TAB PO QAM DIURETIC (Reported) Furosemide (Lasix) 40 MG TABLET 1 TAB PO QPM EDEMA (Reported) Linaclotide (Linzess) 145 MCG CAPSULE 1 CAP PO DAILY GI (Reported) Loratadine (Claritin) 10 MG TABLET 1 TAB PO DAILY ALLERGIES (Reported) Metoprolol Tartrate 25 MG TABLET 1 TAB PO BID HEART/BP (Reported) Paroxetine HCl (Paxil) 10 MG TABLET 1 TAB PO DAILY MENTAL HEALTH (Reported) Rosuvastatin Calcium (Crestor) 20 MG TABLET 1 TAB PO EOD CHOLESTEROL ( Reported) Spironolactone 25 MG TABLET 1 TAB PO DAILY DIURETIC (Reported) Tamsulosin HCl 0.4 MG CAP.ER.24H 1 CAP PO DAILY PROSTATE (Reported) Umeclidinium Brm/Vilanterol Tr (Anoro Ellipta 62.5-25 Mcg INH) 62.5 MCG-25 MCG/ ACTUATION BLST.W.DEV 1 PUFF INH DAILY COPD (Reported) Warfarin Sodium (Coumadin) 7.5 MG TABLET 1 TAB PO DAILY BLOOD THINNER ( Reported) Triage Note: PT TO ED C/O INFECTION TO RIGHT HAND INDEX FINGER. STATES NOTICED A FEW WEEKS AGO. RIGHT INDEX FINGER SWOLLEN/PINK/LARGE POCKET OF PUS NOTED. PT HAS BEEN ON PO ABX PRESCRIBED BY HIS PCP. Triage Nurses Notes Reviewed? yes Duration: week(s): Timing: recent history Injury Environment: home Severity: moderate Pain/Injury Location: Right: 2nd finger. HPI: 76YO male with hx of CHF, CAD s/p CABG, afib on Coumadin presents emergency department complaining of pain, redness, swelling to right index finger for the past week. Patient states he bumped the finger on his dresser prior to onset of symptoms. Patient reports pustules to the area, one was draining material at home. Patient's eyes primary care doctor prescribed amoxicillin however patient has had persistent symptoms. Patient admits to decreased fluid intake over the past few days. Patient denies fevers, chills, abdominal pain, nausea, vomiting, dizziness, weakness. (Tanya Simons) Past History Travel History Traveled to [place] past 21 day No Medical History Any Pertinent Medical History? see below for history Neurological: NONE EENT: NONE Cardiovascular: AFIB, CAD, CHF, hypertension, hyperlipidemia Respiratory: NONE Gastrointestinal: NONE Hepatic: NONE Renal: NONE Musculoskeletal: chronic back pain Psychiatric: NONE Endocrine: NONE Blood Disorders: thrombocytopenia Cancer(s): prostate cancer History of MRSA: No History of VRE: No History of CDIFF: No Influenza Vaccine: 12/18/16 Surgical History Surgical History: CABG (X2) Psychosocial History Who do you live with Patient/Self What is your primary language Swedish Tobacco Use: Quit >30 days ago ETOH Use: denies use Illicit Drug Use: denies illicit drug use Family History Family History, If Any: Relation not specified for: *No pertinent family history Hx Contributory? No (Tanya Simons) Review of Systems Review of Systems Constitutional: Reports: no symptoms. EENTM: Reports: no symptoms. Respiratory: Reports: no symptoms. Cardiovascular: Reports: no symptoms. GI: Reports: no symptoms. Genitourinary: Reports: no symptoms. Musculoskeletal: Reports: see HPI. Skin: Reports: see HPI. Neurological/Psychological: Reports: no symptoms. Hematologic/Endocrine: Reports: no symptoms. Immunologic/Allergic: Reports: no symptoms. All Other Systems: Reviewed and Negative (Mary FORD,Tanya Egan) Physical Exam Physical Exam General Appearance: well developed/nourished, no apparent distress, alert, awake Head: atraumatic, normal appearance Eyes: Bilateral: normal appearance. Ears, Nose, Throat: hearing grossly normal Neck: normal inspection, supple, full range of motion Cardiovascular/Respiratory: normal breath sounds, regular rate/rhythm, no respiratory distress Back: normal inspection, normal range of motion Elbow Left: normal range of motion, normal inspection Elbow Right: normal range of motion, normal inspection Forearm Left: normal range of motion, normal inspection Forearm Right: normal range of motion, normal inspection Wrist Left: normal range of motion, normal inspection Wrist Right: normal range of motion, normal inspection Hand Left: normal inspection, normal range of motion Hand Right: erythema, swelling, tenderness to index finger with 1 pustule presents and 1 crusted lesion present Neurologic/Tendon: normal sensation Skin: see erythema of R index finger as mentioned above (Mary FORD,Tanya Egan) Progress Differential Diagnosis: abscess, cellulitis, contusion, felon, electrolyte abnormality, dehydration, hypotension, DONATO Plan of Care: Orders Procedure Date/time Status Heart Healthy Diet 08/29 B Active XRY-HAND, 2 Views RIGHT 08/29 0600 Active PARTIAL THROMBOPLASTIN TIME 08/29 0400 Complete PROTHROMBIN TIME 08/29 0400 Complete HEPATIC FUNCTION PANEL 08/29 0400 Complete CBC WITHOUT DIFFERENTIAL 08/29 0400 Complete BASIC ELECTROLYTES PLUS BUN&CR 08/29 0400 Complete Regular Diet 08/28 D Complete Skin Integrity Protocol 08/28 2222 Active NUTRITIONAL CONSULT 08/28 2221 Active Code Status 08/28 2200 Active Weight 08/28 220 Active Vital Signs 08/28 2199 Active Teach/Educate 08/28 2199 Active Pain Treatment and Response 08/28 2199 Active Nutritional Intake, Monitor 08/28 2199 Active Isolation 08/28 2199 Active Intake & Output 08/28 2199 Active Patient Care Conference 08/28 2199 Active Activity/Ambulation 08/28 2199 Active Pathway - chart 08/29 2011 Active House Staff 08/29 2011 Active Patient Data 08/29 2011 Active Code Status 08/29 2011 Complete Patient Data 08/28 170 Active OXYGEN SETUP (GEN) 08/29 1703 Active Saline Lock 06/11 1704 Active Admit to inpatient 08/28 1704 Active Vital Signs 08/28 1704 Complete Activity/Ambulation 08/28 1704 Complete Code Status 08/28 1704 Complete EXTREMETIES CULTURE 08/28 1637 Active Add-on Test (ER Only) 08/28 1534 Active EKG 08/28 1534 Active Intake & Output 08/28 1502 Complete URIC ACID 08/28 1453 Complete TROPONIN LEVEL 08/28 1453 Complete TOTAL IRON BINDING CAPACITY 08/28 1453 Complete RETICULOCYTE COUNT 08/28 1453 Complete MAGNESIUM 08/28 1453 Complete FERRITIN 08/28 1453 Complete SERUM IRON 08/28 1453 Complete WESTERGREN SED RATE 08/28 1453 Complete DIRECT BILIRUBIN 08/28 1453 Complete C-REACTIVE PROTEIN 08/28 1453 Complete LACTIC ACID 08/28 1427 Complete COMPREHENSIVE METABOLIC PANEL 08/28 1427 Complete CBC WITHOUT DIFFERENTIAL 08/28 1427 Complete Lab Add-on Test 08/28 UNK Active VTE Mechanical Prophylaxis 08/28 UNK Active Vital Signs 08/28 UNK Complete Vital Signs 08/28 UNK Active Intake & Output 08/28 UNK Complete Intake & Output 08/28 UNK Active Current Medications Sig/Ifeanyi Start time Last Medication Dose Stop Time Status Admin Atorvastatin Calcium 20 MG 1700 08/29 1700 AC (Lipitor) Paroxetine HCl 10 MG DAILY 08/29 09 AC (Paxil) Tamsulosin HCl 0.4 MG DAILY 08/29 09 AC (Flomax) Enoxaparin Sodium 40 MG 2030 08/28 2029 AC 08/28 (Lovenox) 2252 Ibuprofen 600 MG Q6P PRN 08/28 2014 AC (Motrin) Oxycodone HCl 10 MG Q6P PRN 08/28 2014 AC (Roxicodone) Oxycodone/ 1 TAB Q6P PRN 08/28 2014 AC Acetaminophen (Percocet) Laboratory Tests 08/29/17 0600: Total Bilirubin Cancelled, Direct Bilirubin Cancelled, AST Cancelled, ALT Cancelled, Alkaline Phosphatase Cancelled, Total Protein Cancelled, Albumin Cancelled, APTT Cancelled, CBC w Diff Cancelled, WBC Cancelled, RBC Cancelled, Hgb Cancelled, Hct Cancelled, MCV Cancelled, MCH Cancelled, MCHC Cancelled, RDW Cancelled, Plt Count Cancelled, MPV Cancelled 08/29/17 0430: Anion Gap 13, Estimated GFR 42 L, BUN/Creatinine Ratio 43.8 H, Total Bilirubin 1.4 H, Direct Bilirubin 0.3, AST 35, ALT 29, Alkaline Phosphatase 153 H, Total Protein 6.7, Albumin 3.7, PT 16.4 H, INR 1.50 H, APTT 39 H, CBC w Diff NO MAN DIFF REQ, RBC 3.85 L, MCV 86.8, MCH 30.1, MCHC 34.7, RDW 15.6 H, MPV 7.7, Gran % 71.3, Lymphocytes % 14.7 L, Monocytes % 9.5 H, Eosinophils % 3.7, Basophils % 0.8, Absolute Granulocytes 3.9, Absolute Lymphocytes 0.8 L, Absolute Monocytes 0.5, Absolute Eosinophils 0.2, Absolute Basophils 0 08/29/17 0100: Potassium Cancelled 08/28/17 2300: Potassium Cancelled 08/28/17 1727: Lactic Acid Cancelled 08/28/17 1453: Anion Gap 18 H, Estimated GFR 33 L, BUN/Creatinine Ratio 42.5 H, Glucose 125 H, Lactic Acid 1.1, Uric Acid 18.2 H, Calcium 9.2, Magnesium 2.4 H, Iron 83, TIBC 425, Ferritin 131.0, Total Bilirubin 2.1 H, Direct Bilirubin 0.6 H, AST 44, ALT 35, Alkaline Phosphatase 196 H, Troponin I < 0.01, C-Reactive Prot, Quant 1.0, Total Protein 7.7, Albumin 4.3, Globulin 3.4, Albumin/Globulin Ratio 1.3, CBC w Diff NO MAN DIFF REQ, RBC 4.22 L, MCV 85.8, MCH 30.5, MCHC 35.5, RDW 15.3 H, MPV 7.9, Gran % 78.5 H, Lymphocytes % 10.1 L, Monocytes % 8.0, Eosinophils % 3.1, Basophils % 0.3, Absolute Granulocytes 5.4, Absolute Lymphocytes 0.7 L, Absolute Monocytes 0.6, Absolute Eosinophils 0.2, Absolute Basophils 0, ESR Westergren 45 H, Retic Count 3.21 H Microbiology 08/28 1637 EXTREMITIE: Culture & Sensitivity - RECD 08/28 1637 EXTREMITIE: Gram Stain - RECD Patient arrives with hypotension, for this reason he was medicated with IV fluids and labs obtained. Blood work shows hypokalemia of 2.9, elevated BUN and creatinine, these findings are change compared to his previous studies. Patient medicated with second liter of fluid and oral potassium. Given hypokalemia and acute kidney injury this patient requires hospital admission further IV fluids, electrolyte replacement, repeat labs. EKG is stable, no acute changes. Patient's pustule on index finger was needle aspirated by myself, purulent fluid was drained, culture sent to the lab. Spoke with case management and recommend full admission. Dr. Burgos agrees with this plan. Spoke with Dr. Ware regarding this patient's hospital admission Initial ED EKG: ACCELERATED JUNCTIONAL ESCAPE RHYTHM, 69BPM, NONSPECIFIC IVCD, NONSPECIFIC ST CHANGES Prior EKG: unchanged (Mary FORD,Tanya Egan) Departure Departure Disposition: STILL A PATIENT Condition: Stable Clinical Impression Primary Impression: Acute kidney injury Secondary Impressions: Cellulitis, Hypokalemia Referrals: Jaswinder LIND,Ady (PCP/Family) Departure Forms: Customer Survey General Discharge Information Admission Note Spoke With: Chaz LIND,Talib Combs Documentation of Exam: Documentation of any treatments & extenuating circumstances including Concerns Regarding Discharge (functional status, medication knowledge or non-compliance, living conditions, etc.) that warrant an admission rather than observation: [ Acute kidney injury with hypokalemia, requiring IV fluids, electrolyte replacement, repeat labs, cellulitis requiring antibiotics, premature discharge medically unsafe] (Tanya Simons) PA/PARTICLE[employer]ARD FACTORY WORKER Co-Sign Statement Statement: ED Attending supervision documentation- x I saw and evaluated the patient. I have also reviewed all the pertinent lab results and diagnostic results. I agree with the findings and the plan of care as documented in the PA's/PARTICLEBOARD FACTORY WORKER's documentation. Cellulitis failing outpatient antibiotics with DONATO [] I have reviewed the ED Record and agree with the PA's/PARTICLEBOARD FACTORY WORKER's documentation. [] Additions or exceptions (if any) to the PAs/PARTICLEBOARD FACTORY WORKER's note and plan are summarized below: [] (Loretta LIND,Anastacio)
[2017-08-28 15:03] LABS: ABSOLUTE BASOPHIL COUNT 0 /CUMM (0.0-0.2); ABSOLUTE EOSINOPHIL COUNT 0.2 /CUMM (0.0-0.7); ABSOLUTE GRANULOCYTE CT 5.4 /CUMM (1.4-6.5); ABSOLUTE LYMPH COUNT 0.7 /CUMM (1.2-3.4); ABSOLUTE MONOCYTE COUNT 0.6 /CUMM (0.10-0.60); BASOPHIL % 0.3 % (0.0-2.0); EOSINOPHIL % 3.1 % (0-5); GRANULOCYTE % 78.5 % (42.2-75.2); HEMATOCRIT 36.2 % (42-52); MEAN CORPUSCULAR HGB 30.5 PG (27.0-31.0); MEAN CORPUSCULAR HGB CONC 35.5 G/DL (33.0-37.0); MEAN CORPUSCULAR VOLUME 85.8 FL (80.0-94.0); MEAN PLATELET VOLUME 7.9 FL (7.4-10.4); PLATELET COUNT 149 /CUMM (130-400); RBC DISTRIBUTION WIDTH 15.3 % (11.5-14.5); RED BLOOD CELL CT 4.22 /CUMM (4.70-6.10); WHITE BLOOD CELL COUNT 6.9 /CUMM (4.8-10.8)
--- NOTE | 2017-08-28 17:32 | History & Physical ---
See Addendum Sophie Rivas 08/28/17 1731: General Information and HPI History of Present Illness: Mr. Otero is a 76-year-old male with medical history of atrial fibrillation on Coumadin, s/p PPM ([employer]), Maze procedure, coronary artery disease s /p CABG, diastolic congestive heart failure with preserved ejection fraction, hypertension, hyperlipidemia, mitral repair, bioprosthetic aortic valve, previously admitted for DONATO and hyponatremia who presents with worsening right index finger swelling and tenderness. Patient reports 2 months ago he noticed "2 little bumps" on his right proximal index finger that was pus filled. Subsequently 2 weeks ago he hit his right hand on a door handle after which it ruptured and drained a lot of of pus. For the past 2 nights his pain has worsened and had no choice but to come to the hospital though he does not like coming to the hospital. His pain is 8/10 in severity. He had an appointment with his PCP to have it drained but due to a in his family he was unable to make the appointment. He was advised to soak his hand in water and was given a prescription for amoxicillin x 7 days of which today would've been his last dose. He drinks a small bottle of wine daily. He denies any other joint pain, recent gardening, tick bite, fever, chills, nausea, vomiting, urinary or bowel symptoms In the ED he was found to have a BP 88/55, was given 2 L NS IVF after which it increased to 104/65. His finger was drained and sent for cultures. Allergies/Medications Allergies: Coded Allergies: NO KNOWN ALLERGIES (12/09/13) Home Med list Acetaminophen (Tylenol) 325 MG TABLET 650 MG PO Q8 PRN PAIN SCALE 1-3 (MILD) Ferrous Sulfate 325 MG (65 MG IRON) TABLET 1 TAB PO BID SUPPLEMENT (Reported) Furosemide 80 MG TABLET 1 TAB PO QAM DIURETIC (Reported) Furosemide (Lasix) 40 MG TABLET 1 TAB PO QPM EDEMA (Reported) Linaclotide (Linzess) 145 MCG CAPSULE 1 CAP PO DAILY GI (Reported) Loratadine (Claritin) 10 MG TABLET 1 TAB PO DAILY ALLERGIES (Reported) Metoprolol Tartrate 25 MG TABLET 1 TAB PO BID HEART/BP (Reported) Paroxetine HCl (Paxil) 10 MG TABLET 1 TAB PO DAILY MENTAL HEALTH (Reported) Rosuvastatin Calcium (Crestor) 20 MG TABLET 1 TAB PO EOD CHOLESTEROL ( Reported) Spironolactone 25 MG TABLET 1 TAB PO DAILY DIURETIC (Reported) Tamsulosin HCl 0.4 MG CAP.ER.24H 1 CAP PO DAILY PROSTATE (Reported) Umeclidinium Brm/Vilanterol Tr (Anoro Ellipta 62.5-25 Mcg INH) 62.5 MCG-25 MCG/ ACTUATION BLST.W.DEV 1 PUFF INH DAILY COPD (Reported) Warfarin Sodium (Coumadin) 7.5 MG TABLET 1 TAB PO DAILY BLOOD THINNER ( Reported) Past History Travel History Traveled to [place] past 21 day No Medical History Neurological: NONE EENT: NONE Cardiovascular: AFIB, CAD, CHF, hypertension, hyperlipidemia Respiratory: NONE Gastrointestinal: NONE Hepatic: NONE Renal: NONE Musculoskeletal: chronic back pain Psychiatric: NONE Endocrine: NONE Blood Disorders: thrombocytopenia Cancer(s): prostate cancer History of MRSA: No History of VRE: No History of CDIFF: No Influenza Vaccine: 12/18/16 Surgical History Surgical History: CABG (X2) Past Family/Social History Family History Relations & Conditions if any Relation not specified for: *No pertinent family history Psychosocial History ETOH Use: denies use Illicit Drug Use: denies illicit drug use Functional Ability ADLs Independent: dressing, eating, toileting, bathing. Review of Systems Review of Systems Constitutional: Reports: see HPI. Exam & Diagnostic Data Last 24 Hrs of Vital Signs/I&O Vital Signs Date Time Temp Pulse Resp B/P B/P Pulse O2 O2 Flow FiO2 Mean Ox Delivery Rate 08/28 1731 97.7 66 18 104/65 94 Room Air 08/28 1547 67 18 114/70 97 Room Air 08/28 1407 96.4 66 20 88/55 96 Room Air Intake & Output 08/28 1600 08/28 0800 08/28 0000 Intake Total 1000 Output Total Balance 1000 Intake, IV 1000 Patient 190 lb Weight Weight Estimated Measurement Method Physical Exam General Appearance Alert, Oriented X3, Cooperative, No Acute Distress HEENT Atraumatic, PERRLA, EOMI, Mucous Membr. moist/pink Neck Supple, No JVD, No thryomegaly Cardiovascular Regular Rate, Normal S1, Normal S2, 2/6 systolic murmur Lungs Clear to Auscultation, Normal Air Movement Abdomen Normal Bowel Sounds, Soft, No Tenderness Extremities R index finger swelling, skin erythema, tender to touch, no warmth, enlarged joint with 2 papules with minimal clear drainage Last 24 Hrs of Labs/Manuel: Laboratory Tests 08/28/17 1727: Lactic Acid Cancelled 08/28/17 1453: Anion Gap 18 H, Estimated GFR 33 L, BUN/Creatinine Ratio 42.5 H, Glucose 125 H, Lactic Acid 1.1, Calcium 9.2, Magnesium 2.4 H, Total Bilirubin 2.1 H, AST 44, ALT 35, Alkaline Phosphatase 196 H, Troponin I < 0.01, Total Protein 7.7, Albumin 4.3, Globulin 3.4, Albumin/Globulin Ratio 1.3, CBC w Diff NO MAN DIFF REQ, RBC 4.22 L, MCV 85.8, MCH 30.5, MCHC 35.5, RDW 15.3 H, MPV 7.9, Gran % 78.5 H, Lymphocytes % 10.1 L, Monocytes % 8.0, Eosinophils % 3.1, Basophils % 0.3, Absolute Granulocytes 5.4, Absolute Lymphocytes 0.7 L, Absolute Monocytes 0.6, Absolute Eosinophils 0.2, Absolute Basophils 0 Microbiology 08/28 163 EXTREMITIE: Culture & Sensitivity - RECD 08/28 1637 EXTREMITIE: Gram Stain - RECD Diagnostic Data EKG Results NS, HR 69, QTc 515 Assessment/Plan Assessment: Mr. Otero is a 76-year-old male with medical history of atrial fibrillation on Coumadin, s/p PPM ([employer]), Maze procedure, coronary artery disease s /p CABG, diastolic congestive heart failure with preserved ejection fraction, hypertension, hyperlipidemia, mitral repair, bioprosthetic aortic valve, recently admitted for DONATO and hyponatremia who presents with worsening right index finger swelling and tenderness. #R index finger joint enlargement and swelling - may be 2/2 gout vs cellulitis #DONATO (baseline 1.2) - may be 2/2 dehydration and hypovolemia given his BP #Hyponatremia - may be 2/2 hypovolemic hyponatremia #Hypokalemia Plan: Admit to [facility] for further evaluation and management XR R hand Monitor and replete potassium Monitor creatinine Urine lytes for hyponatremia Uric acid We will repeat LFTs in the morning Vitals every shift Watch off antibiotics We will resume his home meds: statin, Tamsulosin, Paroxetine We will hold his Furosemide, Spironolactone, Torsemide given his worsening renal function We will consider Cardio consult for medication management Diet: Heart healthy DVT ppx: Enoxaparin Code: Full As Ranked By This Provider Problem List: 1. Acute kidney injury 2. Hypokalemia Core Measures/Misc (12/04) Acute Coronary Syndrome ACS Diagnosis: No Congestive Heart Failure Congestive Heart Failure Diagnosis No Cerebrovascular Accident CVA/TIA Diagnosis: No VTE (View Protocol) VTE Risk Factors Age>40 No Mechanical VTE Prophylaxis d/t N/A MechProphylax Ordered No VTE Pharm Prophylaxis d/t NA PharmProphylax ordered Sepsis (View protocol) Sepsis Present: No If YES complete Sepsis Event Note If YES complete Sepsis Event Note Octavio Ortiz MD 08/28/17 2200: Core Measures/Misc (12/04) Sepsis (View protocol) If YES complete Sepsis Event Note If YES complete Sepsis Event Note Resident Review Statement Resident Statement: examined this patient, discussed with product management intern, agreed with product management intern Other Findings: This is 76-year-old male with medical history of atrial fibrillation on Coumadin , CAD s/p CABG, HFpEF, hypertension, hyperlipidemia, mitral valve repair, bioprosthetic aortic valve, recent back surgery about 3 weeks ago at [facility], who comes in with chief complaint of right index finger swelling, purulent drainage, and pain. Patient states that he noticed 2 "bumps" about a month and a half ago. It slowly seemed to worsen until coalesced into a single pustule. About 10 days ago he hit his finger on a door and as a result drained the lesion on his finger. For the last 2 nights the pain had been unbearable, and 8 out of 10 which is why he decided to come to the ED at this time. He initially made appointment to see his PCP to get the finger drained but was unable to make that appointment. However he was prescribed 7 days of amoxicillin which he has faithfully taken. He denies any fever, chills, but does endorse worsening pain in the right index finger. He states it is more swollen than normal for him. Note social history significant for an alcoholic beverage at dinnertime. No histories of DTs or withdrawal. Has no trouble stopping alcohol at any time. Vitals: 96.4, 66, 18-20, 88/55-100 and 14/70, 96% on room air. Labs: Hemoglobin 12.8, hematocrit 36.2. White count 6.9, platelets 149. BEP: Sodium 132, potassium 2.9, chloride 86, bicarb 28, BUN 85, creatinine 2.0. Anion gap 18. Glucose 125. Magnesium 2.4. T bili 2.1. Alk phos 196. Assessment: This is a 76-year-old male with extensive past medical history including atrial fibrillation on Coumadin, CAD s/p CABG, HFpEF, hypertension, hyperlipidemia, mitral valve repair, bioprosthetic aortic valve, recent back surgery about 3 weeks ago at [facility], who comes in with chief complaint of right index finger swelling, purulent, and pain. In the ED he got bedside debridement and was found to be hypotensive down to 88/55, and significant electrolyte abnormalities. As such he is admitted to the [facility] floor for further workup. Problem List: 1. Right index finger swelling and pain 2. Hyponatremia 3. Hyperkalemia 4. BUN 85 and creatinine 2.0. 5. Elevated anion gap 6. Elevated LFT and alk phos. 7. Mild leukocytosis 12.8 8. Significant cardiac history including CABG, mitral valve repair, and bioprosthetic aortic valve 9. A. fib on Coumadin 10. Episode of hypotension Plan: 1. Right index finger swelling and pain: Differential diagnosis includes cellulitis versus crystal arthritides. It is unlikely that cellulitis of the hand would have persisted for over 2 months as patient describes. However he did have some fluctuance and purulence expressed from his digit. So far he has remained afebrile but he does have white count 12.8. He does have history of alcohol intake, significant diuretic use and evidence of nodularity in other joints raising the possibility of tophaceous etiology for his symptoms. * Obtain right hand x-ray * ESR * CRP * Check uric acid * Follow-up culture and Gram stain of the I&D in ED 2. Hypokalemia: Potassium 2.9 in ED * Replete as necessary 3. Overdiuresis: Patient's BUN 85, creatinine 2.0 (baseline Cr between 1.7 and 2.1), hypo-kalemia hyponatremia and hypochloremia could likely be attributed to his 120 a day po Lasix regimen. At some point it looks like he was also started on torsemide or metolazone. * Monitor BP * Hold diuretic including spironolactone, torsemide and Lasix * Monitor ins and outs 4. Elevated anion gap: Anion gap is 18. Could be secondary to his renal failure. However will workup other etiologies * Check lactic acid 5. Hyperbilirubinemia and elevated alk phos: Tbili 2.1. Alk phos 196. * Fractionate * Recheck in a.m. 6. History A. fib: * Continue Coumadin * Holding metoprolol given blood pressure 88/55 7. Anemia: Hemoglobin 12.8 hematocrit 36.2 * Iron studies Continue Paxil, Crestor, and tamsulosin. fc chem ppx reg diet.
[2017-08-28 19:29] VITALS: BP 100/60
[2017-08-29 01:48] VITALS: BP 104/60
--- NOTE | 2017-08-29 03:15 | Admission Certification ---
Admission Certification Certification Statement - As attending physician, I certify that at the time of - admission, based on clinical presentation, severity of - symptoms, need for further diagnostic testing and - therapeutic interventions, and risk of adverse outcomes - without in-hospital treatment, in my clinical assessment, - this patient requires an acute hospital stay for a minimum - of two nights or longer. I have also considered psychsocial - factors such as support system, advanced age, financial - issues, cognitive issues, and failed out-patient treatments, - past re-admission history, safety of patient, and lack of - compliance as applicable. Specific rationale supporting this admission is: Right index finger inflammation
[2017-08-29 04:50] LABS: ABSOLUTE BASOPHIL COUNT 0 /CUMM (0.0-0.2); ABSOLUTE EOSINOPHIL COUNT 0.2 /CUMM (0.0-0.7); ABSOLUTE GRANULOCYTE CT 3.9 /CUMM (1.4-6.5); ABSOLUTE LYMPH COUNT 0.8 /CUMM (1.2-3.4); ABSOLUTE MONOCYTE COUNT 0.5 /CUMM (0.10-0.60); BASOPHIL % 0.8 % (0.0-2.0); EOSINOPHIL % 3.7 % (0-5); GRANULOCYTE % 71.3 % (42.2-75.2); HEMATOCRIT 33.4 % (42-52); MEAN CORPUSCULAR HGB 30.1 PG (27.0-31.0); MEAN CORPUSCULAR HGB CONC 34.7 G/DL (33.0-37.0); MEAN CORPUSCULAR VOLUME 86.8 FL (80.0-94.0); MEAN PLATELET VOLUME 7.7 FL (7.4-10.4); PLATELET COUNT 121 /CUMM (130-400); RBC DISTRIBUTION WIDTH 15.6 % (11.5-14.5); RED BLOOD CELL CT 3.85 /CUMM (4.70-6.10); WHITE BLOOD CELL COUNT 5.5 /CUMM (4.8-10.8)
[2017-08-29 05:00] LABS: PT 16.4 SEC (9.4-12.5); PTT 39 SEC (25-37)
[2017-08-29 06:14] VITALS: BP 100/54
--- NOTE | 2017-08-29 08:00 | PN- Housestaff ---
Sophie Rivas 08/29/17 0800: Subjective Follow-up For: R index finger gout Subjective: Patient reports persistent tenderness and skin erythema Review of Systems Constitutional: Reports: see HPI. Objective Last 24 Hrs of Vital Signs/I&O Vital Signs Date Time Temp Pulse Resp B/P B/P Pulse O2 O2 Flow FiO2 Mean Ox Delivery Rate 08/29 0837 72 104/64 08/29 0614 98.0 72 18 100/54 93 Room Air 08/29 0148 98.6 66 20 104/60 93 Room Air 08/29 0148 98.6 66 20 104/60 93 Room Air 08/28 1929 97.4 70 20 100/60 96 Room Air 08/28 1929 97.4 70 20 100/60 96 Nasal Cannula 08/28 1731 97.7 66 18 104/65 94 Room Air 08/28 1547 67 18 114/70 97 Room Air 08/28 1407 96.4 66 20 88/55 96 Room Air Intake & Output 08/29 1600 08/29 0800 08/29 0000 Intake Total 240 240 Output Total 700 300 Balance -460 -60 Intake, IV 240 Intake, Oral 240 Output, Urine 700 300 Patient 183 lb Weight Weight Reported by Patient Measurement Method Physical Exam General Appearance: Alert, Oriented X3, Cooperative, No Acute Distress Cardiovascular: Regular Rate, Normal S1, Normal S2 Lungs: Clear to Auscultation, Normal Air Movement Abdomen: Normal Bowel Sounds, Soft, No Tenderness Extremities: R index finger joint enlargement with whitish underlying tophi appearance, tender to touch, minimal clear drainage Current Medications: Current Medications Sig/Ifeanyi Start time Last Medication Dose Route Stop Time Status Admin Atorvastatin Calcium 20 MG 1700 08/29 1700 AC PO Ceftriaxone Sodium 1,000 MG DAILY 08/29 899 DC 08/29 IV 0937 Enoxaparin Sodium 40 MG 2030 08/28 2029 AC 08/28 SC 2252 Ibuprofen 600 MG Q6P PRN 08/28 2014 AC PO Oxycodone HCl 10 MG Q6P PRN 08/28 2014 AC PO Oxycodone/ 1 TAB Q6P PRN 08/28 2014 AC Acetaminophen PO Paroxetine HCl 10 MG DAILY 08/29 0900 AC 08/29 PO 0836 Potassium Chloride 60 MEQ ONCE ONE 08/29 0645 DC 08/29 PO 08/29 0646 0837 Potassium Chloride 10 MEQ .STK-MED ONE 08/29 0018 DC IV 08/29 0019 Potassium Chloride 10 MEQ Q1H 08/28 2230 DC 08/29 IV 08/28 2331 0020 Potassium Chloride 40 MEQ ONCE ONE 08/28 2230 DC 08/28 PO 08/28 2231 2311 Potassium Chloride 0 .STK-MED ONE 08/28 1633 DC PO Potassium Chloride 40 MEQ ONCE ONE 08/28 1615 DC 08/28 PO 08/28 1616 1628 Sodium Chloride 1,000 ML BOLUS ONE 08/28 1645 DC 08/28 IV 08/28 1744 1733 Sodium Chloride 1,000 ML BOLUS ONE 08/28 1430 DC 08/28 IV 08/28 1529 1512 Tamsulosin HCl 0.4 MG DAILY 08/29 0900 AC 08/29 PO 0837 Warfarin Sodium 7.5 MG ONCE ONE 08/29 1700 AC PO 08/29 1701 Last 24 Hrs of Lab/Manuel Results Last 24 Hrs of Labs/Mics: Laboratory Tests 08/29/17 0600: Total Bilirubin Cancelled, Direct Bilirubin Cancelled, AST Cancelled, ALT Cancelled, Alkaline Phosphatase Cancelled, Total Protein Cancelled, Albumin Cancelled, APTT Cancelled, CBC w Diff Cancelled, WBC Cancelled, RBC Cancelled, Hgb Cancelled, Hct Cancelled, MCV Cancelled, MCH Cancelled, MCHC Cancelled, RDW Cancelled, Plt Count Cancelled, MPV Cancelled 08/29/17 0430: Anion Gap 13, Estimated GFR 42 L, BUN/Creatinine Ratio 43.8 H, Total Bilirubin 1.4 H, Direct Bilirubin 0.3, AST 35, ALT 29, Alkaline Phosphatase 153 H, Total Protein 6.7, Albumin 3.7, PT 16.4 H, INR 1.50 H, APTT 39 H, CBC w Diff NO MAN DIFF REQ, RBC 3.85 L, MCV 86.8, MCH 30.1, MCHC 34.7, RDW 15.6 H, MPV 7.7, Gran % 71.3, Lymphocytes % 14.7 L, Monocytes % 9.5 H, Eosinophils % 3.7, Basophils % 0.8, Absolute Granulocytes 3.9, Absolute Lymphocytes 0.8 L, Absolute Monocytes 0.5, Absolute Eosinophils 0.2, Absolute Basophils 0 08/29/17 0100: Potassium Cancelled 08/28/17 2300: Potassium Cancelled 08/28/17 1727: Lactic Acid Cancelled 08/28/17 1453: Anion Gap 18 H, Estimated GFR 33 L, BUN/Creatinine Ratio 42.5 H, Glucose 125 H, Lactic Acid 1.1, Uric Acid 18.2 H, Calcium 9.2, Magnesium 2.4 H, Iron 83, TIBC 425, Ferritin 131.0, Total Bilirubin 2.1 H, Direct Bilirubin 0.6 H, AST 44, ALT 35, Alkaline Phosphatase 196 H, Troponin I < 0.01, C-Reactive Prot, Quant 1.0, Total Protein 7.7, Albumin 4.3, Globulin 3.4, Albumin/Globulin Ratio 1.3, CBC w Diff NO MAN DIFF REQ, RBC 4.22 L, MCV 85.8, MCH 30.5, MCHC 35.5, RDW 15.3 H, MPV 7.9, Gran % 78.5 H, Lymphocytes % 10.1 L, Monocytes % 8.0, Eosinophils % 3.1, Basophils % 0.3, Absolute Granulocytes 5.4, Absolute Lymphocytes 0.7 L, Absolute Monocytes 0.6, Absolute Eosinophils 0.2, Absolute Basophils 0, ESR Westergren 45 H, Retic Count 3.21 H Microbiology 08/28 163 EXTREMITIE: Culture & Sensitivity - RES 08/28 1637 EXTREMITIE: Gram Stain - RES Assessment/Plan Assessment: Mr. Otero is a 76-year-old male with medical history of atrial fibrillation on Coumadin, s/p PPM ([employer]), Maze procedure, coronary artery disease s /p CABG, diastolic congestive heart failure with preserved ejection fraction, hypertension, hyperlipidemia, mitral repair, bioprosthetic aortic valve, recently admitted for DONATO and hyponatremia who presents with worsening right index finger swelling and tenderness. #R index finger joint enlargement and swelling - may be 2/2 gout #DONATO (baseline 1.2) - may be 2/2 dehydration and hypovolemia given his BP #Hyponatremia - may be 2/2 hypovolemic hyponatremia - resolved #Hypokalemia Plan: Dose Coumadin per INR, we will give him 7.5 mg XR R hand pending Monitor and replete potassium. 60meQ given Creatinine stable Uric acid 18.2 LFTs trending downwards Vitals every shift We will discontinue IV Cefazolin, cellulitis - ruled out We will resume his home meds: statin, Tamsulosin, Paroxetine We will hold his Furosemide, Spironolactone, Torsemide given his worsening renal function We will consider Cardio consult for medication management Diet: Heart healthy DVT ppx: Enoxaparin Code: Full Problem List: 1. Gout flare Pain Ratin Pain Location: NA Pain Goal: Remain pain free Pain Plan: NA Tomorrow's Labs & Rationales: CBC, BEP, INR Elijah LIND,Le 08/29/17 1255: Attending MD Review Statement Attending Statement Attending MD Statement: examined this patient, discuss w/resident/PA/EXPLOSIVE ORDNANCE TECHNICIAN, agreed w/resident/PA/EXPLOSIVE ORDNANCE TECHNICIAN, reviewed EMR data (avail), discussed with nursing, discussed with case mgmt, reviewed images, amended to note Attending Assessment/Plan: Patient seen and examined, the right index finger still has some erythema but it loos more like gouty flare Vital Signs Date Time Temp Pulse Resp B/P B/P Pulse O2 O2 Flow FiO2 Mean Ox Delivery Rate 08/29 0837 72 104/64 08/29 0614 98.0 72 18 100/54 93 Room Air 08/29 0148 98.6 66 20 104/60 93 Room Air 08/29 0148 98.6 66 20 104/60 93 Room Air 08/28 1929 97.4 70 20 100/60 96 Room Air 08/28 1929 97.4 70 20 100/60 96 Nasal Cannula 08/28 1731 97.7 66 18 104/65 94 Room Air 08/28 1547 67 18 114/70 97 Room Air 08/28 1407 96.4 66 20 88/55 96 Room Air on exam; aox3, nad. cv; s1,s2, rrr resp; clear abd; soft, nt, bs+ ext; no edema skin; right index finger with two areas of erythema and swelling in first phalynx likely 2/2 to gouty flare. Laboratory Tests 08/29 08/29 08/29 0600 0430 0100 Chemistry Sodium (137 - 145 mmol/L) 140 Potassium (3.5 - 5.1 mmol/L) 3.2 L Cancelled Chloride (98 - 107 mmol/L) 99 Carbon Dioxide (22 - 30 mmol/L) 28 Anion Gap (5 - 16) 13 BUN (9 - 20 mg/dL) 70 H Creatinine (0.7 - 1.2 mg/dL) 1.6 H Estimated GFR (>60 ml/min) 42 L BUN/Creatinine Ratio (7 - 25 %) 43.8 H Total Bilirubin (0.2 - 1.3 mg/dL) Cancelled 1.4 H Direct Bilirubin (< 0.4 mg/dL) Cancelled 0.3 AST (17 - 59 U/L) Cancelled 35 ALT (21 - 72 U/L) Cancelled 29 Alkaline Phosphatase (< 127 U/L) Cancelled 153 H Total Protein (6.3 - 8.2 g/dL) Cancelled 6.7 Albumin (3.5 - 5.0 g/dL) Cancelled 3.7 Coagulation PT (9.4 - 12.5 SEC) 16.4 H INR (0.90 - 1.17) 1.50 H APTT (25 - 37 SEC) Cancelled 39 H Hematology CBC w Diff Cancelled NO MAN DIFF REQ WBC (4.8 - 10.8 /CUMM) Cancelled 5.5 RBC (4.70 - 6.10 /CUMM) Cancelled 3.85 L Hgb (14.0 - 18.0 G/DL) Cancelled 11.6 L Hct (42 - 52 %) Cancelled 33.4 L MCV (80.0 - 94.0 FL) Cancelled 86.8 MCH (27.0 - 31.0 PG) Cancelled 30.1 MCHC (33.0 - 37.0 G/DL) Cancelled 34.7 RDW (11.5 - 14.5 %) Cancelled 15.6 H Plt Count (130 - 400 /CUMM) Cancelled 121 L MPV (7.4 - 10.4 FL) Cancelled 7.7 Gran % (42.2 - 75.2 %) 71.3 Lymphocytes % (20.5 - 51.1 %) 14.7 L Monocytes % (1.7 - 9.3 %) 9.5 H Eosinophils % (0 - 5 %) 3.7 Basophils % (0.0 - 2.0 %) 0.8 Absolute Granulocytes (1.4 - 6.5 /CUMM) 3.9 Absolute Lymphocytes (1.2 - 3.4 /CUMM) 0.8 L Absolute Monocytes (0.10 - 0.60 /CUMM) 0.5 Absolute Eosinophils (0.0 - 0.7 /CUMM) 0.2 Absolute Basophils (0.0 - 0.2 /CUMM) 0 08/28 08/28 08/28 2300 1727 1453 Chemistry Sodium (137 - 145 mmol/L) 132 L Potassium (3.5 - 5.1 mmol/L) Cancelled 2.9 *L Chloride (98 - 107 mmol/L) 86 L Carbon Dioxide (22 - 30 mmol/L) 28 Anion Gap (5 - 16) 18 H BUN (9 - 20 mg/dL) 85 H Creatinine (0.7 - 1.2 mg/dL) 2.0 H Estimated GFR (>60 ml/min) 33 L BUN/Creatinine Ratio (7 - 25 %) 42.5 H Glucose (65 - 99 mg/dL) 125 H Lactic Acid (0.7 - 2.1 mmol/L) Cancelled 1.1 Uric Acid (3.5 - 8.5 mg/dL) 18.2 H Calcium (8.4 - 10.2 mg/dL) 9.2 Magnesium (1.6 - 2.3 mg/dL) 2.4 H Iron (49 - 181 ug/dL) 83 TIBC (261 - 462 ug/dL) 425 Ferritin (17.9 - 464 ng/mL) 131.0 Total Bilirubin (0.2 - 1.3 mg/dL) 2.1 H Direct Bilirubin (< 0.4 mg/dL) 0.6 H AST (17 - 59 U/L) 44 ALT (21 - 72 U/L) 35 Alkaline Phosphatase (< 127 U/L) 196 H Troponin I (<0.11 ng/ml) < 0.01 C-Reactive Prot, Quant (<1.0 mg/dL) 1.0 Total Protein (6.3 - 8.2 g/dL) 7.7 Albumin (3.5 - 5.0 g/dL) 4.3 Globulin (1.9 - 4.2 gm/dL) 3.4 Albumin/Globulin Ratio (1.1 - 2.2 %) 1.3 Hematology CBC w Diff NO MAN DIFF REQ WBC (4.8 - 10.8 /CUMM) 6.9 RBC (4.70 - 6.10 /CUMM) 4.22 L Hgb (14.0 - 18.0 G/DL) 12.8 L Hct (42 - 52 %) 36.2 L MCV (80.0 - 94.0 FL) 85.8 MCH (27.0 - 31.0 PG) 30.5 MCHC (33.0 - 37.0 G/DL) 35.5 RDW (11.5 - 14.5 %) 15.3 H Plt Count (130 - 400 /CUMM) 149 MPV (7.4 - 10.4 FL) 7.9 Gran % (42.2 - 75.2 %) 78.5 H Lymphocytes % (20.5 - 51.1 %) 10.1 L Monocytes % (1.7 - 9.3 %) 8.0 Eosinophils % (0 - 5 %) 3.1 Basophils % (0.0 - 2.0 %) 0.3 Absolute Granulocytes (1.4 - 6.5 /CUMM) 5.4 Absolute Lymphocytes (1.2 - 3.4 /CUMM) 0.7 L Absolute Monocytes (0.10 - 0.60 /CUMM) 0.6 Absolute Eosinophils (0.0 - 0.7 /CUMM) 0.2 Absolute Basophils (0.0 - 0.2 /CUMM) 0 ESR Westergren (0 - 10 MM) 45 H Retic Count (0.5 - 2.0 %) 3.21 H A/P; 76 y/o M with pmh sig for atrial fibrillation on Coumadin, s/p PPM ([employer]), Maze procedure, coronary artery disease s/p CABG, diastolic congestive heart failure with preserved ejection fraction, hypertension, hyperlipidemia, mitral repair, bioprosthetic aortic valve, previously admitted for DONATO and hyponatremia admitted with right index finger swelling and erythema likely 2/2 to gouty flare. Less likely cellulitis. Will start colchicine for the flare. Will stop abx. He will need to be started on allopurinol once acute flare is over. Dose coumadin according to INR. Continue the rest of the Mx. Follow-up on the cultures from incision and drainage and see if they can also check for crystals. If clinically improved and likely can be discharged home tomorrow.
--- NOTE | 2017-08-29 13:21 | RADIOLOGY REPORT ---
EXAMINATION: XR HAND, RIGHT CLINICAL INFORMATION: Right index finger swelling. Possible drainage. Enlarged joint. Presumptive diagnosis of gout versus cellulitis. COMPARISON: Contralateral left index finger dated 07/04/2009. TECHNIQUE: PA and lateral views of the right hand. FINDINGS: There is prominent soft tissue swelling of the mid and distal second digit with particular prominence along the dorsal surface of the DIP joint. There is abnormal permeative bone loss and fragmentation of the articular surface of the head of the middle phalanx of the second digit with prominent erosive change along the palmar surface of the distal metaphysis of the middle phalanx of the second digit. Findings are highly suspicious for an infected joint and osteomyelitis. There is also evidence of moderately advanced osteoarthritis involving the interphalangeal joints of all digits and the first carpometacarpal and metacarpophalangeal joints with joint space narrowing, cystic changes and spurring seen. Mild narrowing of the radiocarpal joint is also seen. There is a well-defined large cyst within the radial base of the proximal phalanx of the second digit with sclerotic margins. This may represent a large geode. Other smaller cystic structures are seen at multiple other joints. No soft tissue calcifications are seen. Mild soft tissue swelling about the wrist is seen. IMPRESSION: 1. Above findings are highly suspicious for an infected joint and osteomyelitis involving the DIP joint and distal metaphysis and epiphysis of the middle phalanx of the second finger. 2. 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 3. Large geode in the proximal phalanx of the second digit.
--- NOTE | 2017-08-29 13:23 | Patient Discharge Instructions ---
Discharge Instructions General Discharge Information You were seen/treated for: R index finger gout You had these procedures: none Special Instructions: Follow up with your PC within 1 week of discharge Follow up with the Slag Dumper-Dr. Sheth within 1 month but if symptoms worsen schedule an appointment sooner Follow up with the Software Engineering Supervisor-Dr. Hearn within 1 week of discharge Check your INR on Monday and have your results faxed to your PCP Diet Continue normal diet: Yes Activity Full Activity/No Limits: Yes Acute Coronary Syndrome Inclusion Criteria At DC or during hospital stay patient has or had the following: ACS DIAGNOSIS No Discharge Core Measures Meds if any: Prescribed or Continued at Discharge Meds if any: NOT Prescribed or Continued at Discharge Congestive Heart Failure Inclusion Criteria At DC or during hospital stay patient has or had the following: CHF DIAGNOSIS No Discharge Core Measures Meds if any: Prescribed or Continued at Discharge Meds if any: NOT Prescribed or Continued at Discharge Cerebrovascular accident Inclusion Criteria At DC or during hospital stay patient has or had the following: CVA/TIA Diagnosis No Discharge Core Measures Meds if any: Prescribed or Continued at Discharge Meds if any: NOT Prescribed or Continued at Discharge Venous thromboembolism Inclusion Criteria VTE Diagnosis No VTE Type NONE VTE Confirmed by (Test) NONE Discharge Core Measures - Per Current guidelines, there needs to be overlap - treatment for the first 5 days of Warfarin therapy. - If discharged on Warfarin prior to 5 days of - overlap therapy, the patient will need to be - assessed for post discharge needs including - *Post discharge parental anticoagulation - *Warfarin and/or parental anticoagulation education - *Follow up date to check INR post discharge At least 5 days overlap therapy as Inpatient No Meds if any: Prescribed or Continued at Discharge Note: Overlap Therapy is Warfarin and Anticoagulant Meds if any: NOT Prescribed or Continued at Discharge
[2017-08-29 14:17] VITALS: BP 109/65
--- NOTE | 2017-08-29 17:48 | Cons- Rheumatology ---
General Information and HPI Consulting Request Date of Consult: 08/29/17 Requested By: Talib Ware MD Reason for Consult: Evaluate painful swollen right index finger Source of Information: patient Exam Limitations: no limitations History of Present Illness: This 76-year-old white male with cardiovascular disease was admitted to the hospital yesterday with severe painful swelling of his right index finger. He has no previous history of gout but review of his records reveals that when he was in the hospital in March 2017 he had some right knee swelling which was not aspirated. He was treated with amoxicillin for one week as an outpatient which he just finished yesterday. His hospital workup reveals a uric acid level markedly elevated at 18.2 and a creatinine elevated at 1.6 and x-ray shows destructive changes of the terminal phalanx of the index finger. Allergies/Medications Allergies: Coded Allergies: NO KNOWN ALLERGIES (12/09/13) Home Med List: Acetaminophen (Tylenol) 325 MG TABLET 650 MG PO Q8 PRN PAIN SCALE 1-3 (MILD) Ferrous Sulfate 325 MG (65 MG IRON) TABLET 1 TAB PO BID SUPPLEMENT (Reported) Furosemide 80 MG TABLET 1 TAB PO QAM DIURETIC (Reported) Furosemide (Lasix) 40 MG TABLET 1 TAB PO QPM EDEMA (Reported) Linaclotide (Linzess) 145 MCG CAPSULE 1 CAP PO DAILY GI (Reported) Loratadine (Claritin) 10 MG TABLET 1 TAB PO DAILY ALLERGIES (Reported) Metoprolol Tartrate 25 MG TABLET 1 TAB PO BID HEART/BP (Reported) Paroxetine HCl (Paxil) 10 MG TABLET 1 TAB PO DAILY MENTAL HEALTH (Reported) Rosuvastatin Calcium (Crestor) 20 MG TABLET 1 TAB PO EOD CHOLESTEROL ( Reported) Spironolactone 25 MG TABLET 1 TAB PO DAILY DIURETIC (Reported) Tamsulosin HCl 0.4 MG CAP.ER.24H 1 CAP PO DAILY PROSTATE (Reported) Umeclidinium Brm/Vilanterol Tr (Anoro Ellipta 62.5-25 Mcg INH) 62.5 MCG-25 MCG/ ACTUATION BLST.W.DEV 1 PUFF INH DAILY COPD (Reported) Warfarin Sodium (Coumadin) 7.5 MG TABLET 1 TAB PO DAILY BLOOD THINNER ( Reported) Current Medications: This is a 76-year-old male with an extensive history of cardiovascular disease and chronic renal insufficiency who was admitted to the hospital yesterday with severely painful swollen right index finger. I'm asked to see him in rheumatologic consultation because of the clinical suspicion by the medical staff of gout. The patient denies any previous history of gout. His finger he's had some discomfort in his ankles recently making ambulation somewhat difficult he states that his finger became swollen initially 3 weeks ago. Onset was not abrupt however. He recently finished a course of antibiotics namely amoxicillin just yesterday. However the finger did not improve that much and the pain was severe yesterday so he came to the emergency room after incidental trauma caused an opening of white fluid from the swollen finger. In the hospital he is found to have a very high uric acid level of 18.2 mg percent. Current Medications Sig/Ifeanyi Start time Last Medication Dose Route Stop Time Status Admin Atorvastatin Calcium 20 MG 1700 08/29 1700 AC 08/29 PO 1602 Ceftriaxone Sodium 1,000 MG DAILY 08/29 0900 DC 08/29 IV 0937 Colchicine 600 MCG ONCE ONE 08/29 1435 DC 08/29 PO 08/29 1436 1600 Colchicine 1,200 MCG ONCE ONE 08/29 1345 DC 08/29 PO 08/29 1346 1439 Enoxaparin Sodium 40 MG 2030 08/28 2030 DC 08/28 SC 2252 Heparin Sodium 5,000 UNIT Q8 08/29 1400 CAN (Porcine) SC Ibuprofen 600 MG Q6P PRN 08/28 2014 DC PO Oxycodone HCl 10 MG Q6P PRN 08/28 2014 AC PO Oxycodone/ 1 TAB Q6P PRN 08/28 2014 AC Acetaminophen PO Paroxetine HCl 10 MG DAILY 08/29 0900 AC 08/29 PO 0836 Patient Medication 1 ED ONE ONE 08/29 1630 DC 08/29 Teaching ED 08/29 1631 1711 Potassium Chloride 60 MEQ ONCE ONE 08/29 0645 DC 08/29 PO 08/29 0646 0837 Potassium Chloride 10 MEQ .STK-MED ONE 08/29 0018 DC IV 08/29 0019 Potassium Chloride 10 MEQ Q1H 08/28 2230 DC 08/29 IV 08/28 2331 0020 Potassium Chloride 40 MEQ ONCE ONE 08/28 2230 DC 08/28 PO 08/28 2231 2311 Sodium Chloride 1,000 ML BOLUS ONE 08/28 1645 DC 08/28 IV 08/28 1744 1733 Tamsulosin HCl 0.4 MG DAILY 08/29 0900 AC 08/29 PO 0837 Warfarin Sodium 7.5 MG ONCE ONE 08/29 1700 DC 08/29 PO 08/29 1701 1602 Review of Systems Review of Systems: There is no history of skin rash psoriasis or kidney stones. 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 Home Services at Home: Nursing, Physical Therapy Smoking Status: Former Smoker ETOH Use: denies use Illicit Drug Use: denies illicit drug use Functional Ability ADLs Independent: dressing, eating, toileting, bathing. Exam & Diagnostic Data Vital Signs and I&O Vital Signs Date Time Temp Pulse Resp B/P B/P Pulse O2 O2 Flow FiO2 Mean Ox Delivery Rate 08/29 1417 97.6 75 18 109/65 97 Room Air 08/29 0837 72 104/64 08/29 0614 98.0 72 18 100/54 93 Room Air 08/29 0148 98.6 66 20 104/60 93 Room Air 08/29 0148 98.6 66 20 104/60 93 Room Air 08/28 1929 97.4 70 20 100/60 96 Room Air 08/28 1929 97.4 70 20 100/60 96 Nasal Cannula Intake & Output 08/29 1600 08/29 0800 08/29 0000 Intake Total 750 240 240 Output Total 650 700 300 Balance 100 -460 -60 Intake, IV 30 240 Intake, Oral 720 240 Output, Urine 650 700 300 Patient 182 lb 183 lb Weight Weight Reported by Patient Measurement Method Physical Exam: On examination he is well-developed well-nourished male lying comfortably in bed. His right hand exhibits redness and bony enlargement along with some soft tissue fluctuance of the second DIP region. He does have some Heberden's nodes of a few other joints as well. Her no tophi over his elbows. His knees have good range of motion without swelling or tenderness. His ankles however are bilaterally tender some swelling particularly over the right ankle more so than the left. 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 Should be noted that the patient underwent back surgery just 3 weeks ago at [facility]. He has not had any fever and does not have an elevated white count so sepsis is unlikely. 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 The x-ray shows some bony destruction which is compatible with gout and less likely in infection. Recommendations: I would recommend beginning a course of oral prednisone since he has renal insufficiency. Colchicine is not helpful in renal failure. The dose of prednisone I would choose would be 20 mg twice a day for 2 days and then rapidly tapered. Even know it is felt historically not helpful to add allopurinol this point I wouldn't do so in this case beginning him on 100 mg of allopurinol daily. When his prednisone is tapered I would leave him on a maintenance of 5 mg daily while the allopurinol lowers his uric acid level gradually. This could be followed up as an outpatient by his primary care physician. Consult Acknowledgment - Thank you for your consult request.
[2017-08-29 21:48] VITALS: BP 102/64
[2017-08-30 02:10] VITALS: BP 114/68
[2017-08-30 06:18] VITALS: BP 118/70
--- NOTE | 2017-08-30 07:13 | PN- Housestaff ---
Sophie Rivas 08/30/17 0712: Subjective Follow-up For: R index finger gout Subjective: No complaints or acute events overnight. Patient anticipates to go home today Review of Systems Constitutional: Reports: see HPI. Objective Last 24 Hrs of Vital Signs/I&O Vital Signs Date Time Temp Pulse Resp B/P B/P Pulse O2 O2 Flow FiO2 Mean Ox Delivery Rate 08/30 06 98.6 77 18 118/70 96 Room Air 08/30 0210 98.3 65 18 114/68 96 Room Air 08/29 2148 98.5 75 16 102/64 95 Room Air 08/29 1417 97.6 75 18 109/65 97 Room Air 08/29 0837 72 104/64 Intake & Output 08/30 0800 08/30 0000 08/29 1600 Intake Total 260 750 Output Total 800 500 650 Balance -540 -500 100 Intake, IV 20 30 Intake, Oral 240 720 Output, Urine 800 500 650 Patient 182 lb Weight Physical Exam General Appearance: Alert, Oriented X3, Cooperative, No Acute Distress Cardiovascular: Regular Rate, Normal S1, Normal S2 Lungs: Clear to Auscultation, Normal Air Movement Abdomen: Normal Bowel Sounds, Soft, No Tenderness Extremities: R index finger tender with minimal drainage Current Medications: Current Medications Sig/Ifeanyi Start time Last Medication Dose Route Stop Time Status Admin Allopurinol 100 MG DAILY 08/30 0900 AC PO Atorvastatin Calcium 20 MG 1700 08/29 1700 AC 08/29 PO 1602 Ceftriaxone Sodium 1,000 MG DAILY 08/29 0900 DC 08/29 IV 0937 Colchicine 600 MCG ONCE ONE 08/29 1435 DC 08/29 PO 08/29 1436 1600 Colchicine 1,200 MCG ONCE ONE 08/29 1345 DC 08/29 PO 08/29 1346 1439 Enoxaparin Sodium 40 MG 2030 08/28 2030 DC 08/28 SC 2252 Heparin Sodium 5,000 UNIT Q8 08/29 1400 CAN (Porcine) SC Ibuprofen 600 MG Q6P PRN 08/28 2014 DC PO Oxycodone HCl 10 MG Q6P PRN 08/28 2014 AC PO Oxycodone/ 1 TAB Q6P PRN 08/28 2014 AC 08/29 Acetaminophen PO 2306 Paroxetine HCl 10 MG DAILY 08/29 0900 AC 08/29 PO 0836 Patient Medication 1 ED ONE ONE 08/29 1630 DC 08/29 Teaching ED 08/29 1631 1711 Prednisone 20 MG BID 08/30 09 AC PO 08/31 2101 Tamsulosin HCl 0.4 MG DAILY 08/29 0900 AC 08/29 PO 0837 Warfarin Sodium 7.5 MG ONCE ONE 08/29 1700 DC 08/29 PO 08/29 1701 1602 Last 24 Hrs of Lab/Manuel Results Last 24 Hrs of Labs/Mics: Laboratory Tests 08/30/17 0712: Sodium Pending, Potassium Pending, Chloride Pending, Carbon Dioxide Pending, Anion Gap Pending, BUN Pending, Creatinine Pending, BUN/Creatinine Ratio Pending , PT Pending, INR Pending, CBC w Diff Pending, WBC Pending, RBC Pending, Hgb Pending, Hct Pending, MCV Pending, MCH Pending, MCHC Pending, RDW Pending, Plt Count Pending, MPV Pending Assessment/Plan Assessment: Mr. Otero is a 76-year-old male with medical history of atrial fibrillation on Coumadin, s/p PPM ([employer]), Maze procedure, coronary artery disease s /p CABG, diastolic congestive heart failure with preserved ejection fraction, hypertension, hyperlipidemia, mitral repair, bioprosthetic aortic valve, recently admitted for DONATO and hyponatremia who presents with worsening right index finger swelling and tenderness. #R index finger joint enlargement and swelling - may be 2/2 gout #DONATO (baseline 1.2) - may be 2/2 dehydration and hypovolemia given his BP #Hyponatremia - may be 2/2 hypovolemic hyponatremia - resolved #Hypokalemia Plan: We will begin Allopurinol 100 and Prednisone taper for gout Dose Coumadin per INR XR R hand pending Monitor and replete potassium Creatinine stable Uric acid 18.2 LFTs trending downwards Vitals every shift We will discontinue IV Cefazolin, cellulitis - ruled out We will resume his home meds: statin, Tamsulosin, Paroxetine We will hold his Furosemide, Spironolactone, Torsemide given his worsening renal function We will consider Cardio consult for medication management Diet: Heart healthy DVT ppx: Enoxaparin Code: Full Problem List: 1. Gout flare Pain Ratin Pain Location: NA Pain Goal: Remain pain free Pain Plan: NA Tomorrow's Labs & Rationales: CBC, BEP, INR Elijah LIND,Le 08/30/17 1203: Attending MD Review Statement Attending Statement Attending MD Statement: examined this patient, discuss w/resident/PA/STEM CRUSHER, agreed w/resident/PA/STEM CRUSHER, reviewed EMR data (avail), discussed with nursing, discussed with case mgmt, reviewed images, amended to note Attending Assessment/Plan: Patient seen and examined. The right index finger looks almost the same. Should rheumatology input. Marquise Sheth MD agree with the diagnosis of gouty arthritis. He recommends starting the patient on a prednisone taper. Patient has already been started on allopurinol. Patient has this macular rash which is worsening. At this point will do a phone consult with the cafe associate. If no further recommendations from dermatology and then patient can likely be discharged home on prednisone. Rest of his home medications will be continued. Patient to follow-up with his primary doctor as well as rheumatology as an outpatient.
[2017-08-30 08:08] LABS: ABSOLUTE BASOPHIL COUNT 0 /CUMM (0.0-0.2); ABSOLUTE EOSINOPHIL COUNT 0.2 /CUMM (0.0-0.7); ABSOLUTE GRANULOCYTE CT 3.4 /CUMM (1.4-6.5); ABSOLUTE LYMPH COUNT 0.8 /CUMM (1.2-3.4); ABSOLUTE MONOCYTE COUNT 0.4 /CUMM (0.10-0.60); EOSINOPHIL % 3.9 % (0-5); GRANULOCYTE % 71.2 % (42.2-75.2); HEMATOCRIT 33.9 % (42-52); MEAN CORPUSCULAR HGB 30.1 PG (27.0-31.0); MEAN CORPUSCULAR HGB CONC 34.5 G/DL (33.0-37.0); MEAN CORPUSCULAR VOLUME 87.2 FL (80.0-94.0); MEAN PLATELET VOLUME 8.8 FL (7.4-10.4); PLATELET COUNT 104 /CUMM (130-400); RBC DISTRIBUTION WIDTH 16.1 % (11.5-14.5); RED BLOOD CELL CT 3.89 /CUMM (4.70-6.10); WHITE BLOOD CELL COUNT 4.8 /CUMM (4.8-10.8)
[2017-08-30 08:18] LABS: PT 18.5 SEC (9.4-12.5)
--- NOTE | 2017-08-30 08:43 | PN- Rheumatology ---
Subjective Subjective: The right index finger and ankles are still painful. Review of Systems: The right index finger and ankles are still sore but he has not yet received any prednisone as of 8:20 AM the order was put in to begin prednisone 20 mg twice a day as suggested. Objective Vital Signs and I&Os Vital Signs Date Time Temp Pulse Resp B/P B/P Pulse O2 O2 Flow FiO2 Mean Ox Delivery Rate 08/30 0821 112/68 08/30 0618 98.6 77 18 118/70 96 Room Air 08/30 0210 98.3 65 18 114/68 96 Room Air 08/29 2148 98.5 75 16 102/64 95 Room Air 08/29 1417 97.6 75 18 109/65 97 Room Air Intake & Output 08/30 1600 08/30 0800 08/30 0000 08/29 1600 08/29 0800 08/29 0000 Intake Total 260 750 240 240 Output Total 800 500 650 700 300 Balance -540 -500 100 -460 -60 Intake, IV 20 30 240 Intake, Oral 240 720 240 Output, Urine 800 500 650 700 300 Patient 182 lb 183 lb Weight Weight Reported by Patient Measurement Method Physical Exam: Right index finger has a bandage over the DIP joint but there is erythema seen just proximally. His ankles are still somewhat up out of bed yet.. Current Medications: Current Medications Sig/Ifeanyi Start time Last Medication Dose Route Stop Time Status Admin Allopurinol 100 MG DAILY 08/30 0900 AC PO Atorvastatin Calcium 20 MG 1700 08/29 1700 AC 08/29 PO 1602 Ceftriaxone Sodium 1,000 MG DAILY 08/29 09 DC 08/29 IV 0937 Colchicine 600 MCG ONCE ONE 08/29 1435 DC 08/29 PO 08/29 1436 1600 Colchicine 1,200 MCG ONCE ONE 08/29 1345 DC 08/29 PO 08/29 1346 1439 Enoxaparin Sodium 40 MG 2030 08/28 2030 DC 08/28 SC 2252 Heparin Sodium 5,000 UNIT Q8 08/29 1400 CAN (Porcine) SC Ibuprofen 600 MG Q6P PRN 08/28 2014 DC PO Oxycodone HCl 10 MG Q6P PRN 08/28 2014 AC PO Oxycodone/ 1 TAB Q6P PRN 08/28 2014 AC 08/29 Acetaminophen PO 2306 Paroxetine HCl 10 MG DAILY 08/29 09 AC 06/13 PO 0821 Patient Medication 1 ED ONE ONE 08/29 1630 DC 08/29 Teaching ED 08/29 1631 1711 Prednisone 20 MG BID 08/30 0900 AC PO 08/31 2101 Tamsulosin HCl 0.4 MG DAILY 08/29 0900 AC 08/30 PO 0821 Warfarin Sodium 7.5 MG ONCE ONE 08/29 1700 DC 08/29 PO 08/29 1701 1602 Assessment/Plan Assessment: Again 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 Repeat electrolytes BUN/creatinine creatinine are pending. Allopurinol has already been begun 100 mg daily. Plan: Continue 40 mg of prednisone for 2 days followed by 30 mg for a day to 20 mg a day etc. He be tapered down to a baseline of 5 mg daily along with the allopurinol. In 1 month I will try to follow him up and repeat the uric acid level and adjust the allopurinol dosage upwards.
[2017-08-30] MEDS ORDERED: ALLOPURINOL100 M1 PO ×2 (09:59→11:30)
[2017-08-30] MEDS ORDERED: PREDNISONE20 M1 PO ×2 (09:59→11:30)
[2017-08-30 10:00] VITALS: BP 118/77
--- NOTE | 2017-08-30 11:16 | PN- Student ---
Subjective Subjective: Patient is a 76 year old male with a two week history of pain in the DIP joint of his index finger in his right hand. The patient was treated in the prior two weeks with amoxicillin for suspected joint infection with no improvement to his condition. Just prior to presentation in the ED, he ruptured one of the pustules that had broken through the surface of the skin and fluid began draining out. After evaluation, the antibiotics were stopped, and the treatment was changed to Colchicine yesterday to cover gout. This morning he reports that over night the pain decreased from a prior 10/10 to a 5/10. He has no concerns or complaints and states that he slept well. No other pains or concerns. Appetite has been normal and he reported normal urine output this morning. He stated that his primary concern was being able to go home. Denies any nausea vomiting, fever or chills. Objective Objective: Physical exam: General: Patient was found seated and resting comfortably. Alert and oriented and well spoken. Skin: A macular rash was noted along the medial aspect and flexor surfaces of the arms. The rash consists of erythemic, nummular lesions. No scaling or peeling was evident. Patient denied pruritus. Heart: 2/6 systolic murmur noted. Regular rate. No clicks, rubs or gallops noted. Lungs: Lung sounds were clear bilaterally. Musculoskeletal: Index finger appeared erythemic and swollen surrounding the DIP. No apparent tenderness to palpation. No increased temperature was noted to the site. One pustule and one crusting lesion from the site of rupture were noted at the DIP. Range of motion was limited. Results Results: Laboratory Tests 08/30/17 0712: Anion Gap 12, Estimated GFR 59 L, BUN/Creatinine Ratio 35.8 H, PT 18.5 H, INR 1.69 H, CBC w Diff NO MAN DIFF REQ, RBC 3.89 L, MCV 87.2, MCH 30.1, MCHC 34.5, RDW 16.1 H, MPV 8.8, Gran % 71.2, Lymphocytes % 15.7 L, Monocytes % 8.2, Eosinophils % 3.9, Basophils % 1.0, Absolute Granulocytes 3.4, Absolute Lymphocytes 0.8 L, Absolute Monocytes 0.4, Absolute Eosinophils 0.2, Absolute Basophils 0 08/29/17 0600: Total Bilirubin Cancelled, Direct Bilirubin Cancelled, AST Cancelled, ALT Cancelled, Alkaline Phosphatase Cancelled, Total Protein Cancelled, Albumin Cancelled, APTT Cancelled, CBC w Diff Cancelled, WBC Cancelled, RBC Cancelled, Hgb Cancelled, Hct Cancelled, MCV Cancelled, MCH Cancelled, MCHC Cancelled, RDW Cancelled, Plt Count Cancelled, MPV Cancelled 08/29/17 0430: Anion Gap 13, Estimated GFR 42 L, BUN/Creatinine Ratio 43.8 H, Total Bilirubin 1.4 H, Direct Bilirubin 0.3, AST 35, ALT 29, Alkaline Phosphatase 153 H, Total Protein 6.7, Albumin 3.7, PT 16.4 H, INR 1.50 H, APTT 39 H, CBC w Diff NO MAN DIFF REQ, RBC 3.85 L, MCV 86.8, MCH 30.1, MCHC 34.7, RDW 15.6 H, MPV 7.7, Gran % 71.3, Lymphocytes % 14.7 L, Monocytes % 9.5 H, Eosinophils % 3.7, Basophils % 0.8, Absolute Granulocytes 3.9, Absolute Lymphocytes 0.8 L, Absolute Monocytes 0.5, Absolute Eosinophils 0.2, Absolute Basophils 0 08/29/17 0100: Potassium Cancelled 08/28/17 2300: Potassium Cancelled 08/28/17 1727: Lactic Acid Cancelled 08/28/17 1453: Anion Gap 18 H, Estimated GFR 33 L, BUN/Creatinine Ratio 42.5 H, Glucose 125 H, Lactic Acid 1.1, Uric Acid 18.2 H, Calcium 9.2, Magnesium 2.4 H, Iron 83, TIBC 425, Ferritin 131.0, Total Bilirubin 2.1 H, Direct Bilirubin 0.6 H, AST 44, ALT 35, Alkaline Phosphatase 196 H, Troponin I < 0.01, C-Reactive Prot, Quant 1.0, Total Protein 7.7, Albumin 4.3, Globulin 3.4, Albumin/Globulin Ratio 1.3, CBC w Diff NO MAN DIFF REQ, RBC 4.22 L, MCV 85.8, MCH 30.5, MCHC 35.5, RDW 15.3 H, MPV 7.9, Gran % 78.5 H, Lymphocytes % 10.1 L, Monocytes % 8.0, Eosinophils % 3.1, Basophils % 0.3, Absolute Granulocytes 5.4, Absolute Lymphocytes 0.7 L, Absolute Monocytes 0.6, Absolute Eosinophils 0.2, Absolute Basophils 0, ESR Westergren 45 H, Retic Count 3.21 H Microbiology 08/28 163 EXTREMITIE: Culture & Sensitivity - RES 08/28 1637 EXTREMITIE: Gram Stain - RES Assessment/Plan Assessment: Patient is a 76 year old male with a history of A-fib, coronary artery disease, CABG, CHF, HTN, hyperlipidemia, renal impairment, and mitral repair who is currently being treated for gout. Gout is the working diagnosis, given his diet history, uric acid level, and physical presentation, and positive response overnight to Colchicine. Unlikely septic joint given he is afebrile, without leukocystosis, and lack of growth of culture of the joint fluid after 2 days. Osteomyelitis possible, but given his lack of reponse to antibiotic treatment after two weeks, afebrile status, and presence of symptoms indicating gout, this is less likely. Plan: Per recommendation by Dr. Sheth, continue patient on allopurinol and prednisone. Begin prednisone taper after two days of treatment. Follow up with dermatology for evaluation of the rash.
[2017-08-30] MEDS ORDERED: CLOBETASOL EMOL15 GM TOP (12:53)
--- NOTE | 2017-08-30 12:56 | Event Note ---
Event Note Event Note: Spoke via telephone and text message with Patient Case Manager regarding pt's new rash. Based on images we sent he thinks this is eczema (of which pt has hx) and suggested clobetasol cream and follow up outpatient.
--- NOTE | 2017-08-31 09:34 | Discharge Summary ---
Visit Information Visit Dates Admission Date: 08/28/17 Discharge Date: 08/30/17 Hospital Course Course Attending Physician: Elijah LIND,Le Primary Care Physician: Jaswinder LIND,[facility] Hospital Course: Mr. Otero is a 76-year-old male with medical history of atrial fibrillation on Coumadin, s/p PPM ([employer]), Maze procedure, coronary artery disease s /p CABG, diastolic congestive heart failure with preserved ejection fraction, hypertension, hyperlipidemia, mitral repair, bioprosthetic aortic valve, recently admitted for DONATO and hyponatremia who presents with worsening right index finger swelling and tenderness. #Gout of the R index finger He was initially treated for with IV Cefazolin for suspicion of cellulitis but we later ruled it out and subsequently discontinued his antibiotics. His Uric acid was 18.2. Rheumatology was consulted. He was started on Colchine but due to his renal function it was changed to Allopurinol 100 and a Prednisone taper for gout. #DONATO (baseline ~1.2) His DONATO was suspected to be due to dehydration and hypovolemia given. We will hold his Furosemide, Spironolactone, Torsemide given his worsening renal function. It was resumed upon discharge #Macular rash We consulted Dermatology for his bilateral upper extremity macular rashes due to unknown etiology. He was given Clobetasol cream and a referral to follow up with Dermatology #Chronic medical conditions We continued his other home meds Allergies: Coded Allergies: NO KNOWN ALLERGIES (12/09/13) Pertinent Lab Results: 08/29/17-0600 EXAM TYPE: RAD - XRY-HAND TWO VIEWS R IMPRESSION: 1. Above findings are highly suspicious for an infected joint and osteomyelitis involving the DIP joint and distal metaphysis and epiphysis of the middle phalanx of the second finger. 2. 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 3. Large geode in the proximal phalanx of the second digit. Disposition Summary Disposition Principal Diagnosis: Right second digit finger gout Additional Diagnosis: Macular rash Discharge Disposition: home or self care Discharge Instructions General Discharge Information Code Status: Full Code Patient's Diet: Heart healthy Patient's Activity: Full Follow-Up Instructions/Appts: Follow up with your PC within 1 week of discharge Follow up with the Hat Copyist-Dr. Sheth within 1 month but if symptoms worsen schedule an appointment sooner Follow up with the Web Methods Developer-Dr. Hearn within 1 week of discharge Check your INR on Monday and have your results faxed to your PCP Medications at Discharge Discharge Medications: Continue taking these medications: Metoprolol Tartrate (Metoprolol Tartrate) 25 MG TABLET 1 Tablet ORAL TWICE DAILY Qty = 180 Comments: NOT GIVEN Loratadine (Claritin) 10 MG TABLET 1 Tablet ORAL DAILY Comments: NOT GIVEN Ferrous Sulfate (Ferrous Sulfate) 325 MG (65 MG IRON) TABLET 1 Tablet ORAL TWICE DAILY Comments: NOT GIVEN Warfarin Sodium (Coumadin) 7.5 MG TABLET 1 Tablet ORAL DAILY Comments: Last Taken: 08/30/17 Time: 1100 Tamsulosin HCl (Tamsulosin HCl) 0.4 MG CAP.ER.24H 1 Capsule ORAL DAILY Qty = 90 Comments: Last Taken: 08/30/17 Time: 0800 Furosemide (Furosemide) 80 MG TABLET 1 Tablet ORAL Every Morning Comments: NOT GIVEN Spironolactone (Spironolactone) 25 MG TABLET 1 Tablet ORAL DAILY Qty = 30 Comments: NOT GIVEN Umeclidinium Brm/Vilanterol Tr (Anoro Ellipta 62.5-25 Mcg INH) 62.5 MCG-25 MCG/ ACTUATION BLST.W.DEV 1 PUFF Inhale through mouth DAILY Qty = 180 Comments: NOT GIVEN Paroxetine HCl (Paxil) 10 MG TABLET 1 Tablet ORAL DAILY Qty = 90 Comments: Last Taken: 08/30/17 Time: 0800 Linaclotide (Linzess) 145 MCG CAPSULE 1 Capsule ORAL DAILY Qty = 90 Comments: NOT GIVEN Rosuvastatin Calcium (Crestor) 20 MG TABLET 1 Tablet ORAL Every other day Qty = 45 Comments: NOT GIVEN Acetaminophen (Tylenol) 325 MG TABLET 650 Milligram ORAL EVERY 8 HOURS as needed for PAIN SCALE 1-3 (MILD) Qty = 30 Comments: NOT GIVEN Furosemide (Lasix) 40 MG TABLET 1 Tablet ORAL Every night Days = 30 Comments: NOT GIVEN Start taking the following new medications: Allopurinol (Allopurinol) 100 MG TABLET 100 Milligram ORAL DAILY Qty = 30 No Refills Instructions: . Comments: Last Taken: 08/30/17 Time: 1000 Prednisone (Prednisone) 20 MG TABLET 10 Milligram ORAL TAPER Qty = 45 No Refills Instructions: 20mg BID 08/30,08/31. 30mg BID 09/01,16. 20mg BID 09/03,09/04. 10mg BID 09/05,09/06. 5mg daily therafter. Comments: Last Taken: 08/30/17 Time: 1000 Clobetasol Propionate/Emoll (Clobetasol Emollient 0.05% Crm) 0.05 % CREAM..G. 1 Application On the skin EVERY 12 HOURS Qty = 1 No Refills Copies To: uLis A Smith MD; Jaswinder LIND,Ady; Marquise Sheth MD, MD, Loyd; Jaswinder LIND,Ady; Marquise Sheth MD
== END 2017-08-30 15:50 | disposition home health service (06) | DRG 554 ==
LOC: ERH 13:51 → ERHI 17:04 → 2NB 17:04 → ENRESERV 18:28 → ENTRNSPT 18:58 → EDTRNSPTSTS 19:01 → EDTRNSPT 19:01 → 2NB 19:16 → CMPTRNSPT 19:23 → 2NB 08-30 07:59 → ENPENDDIS 08-30 10:55 → 2NB 08-30 15:50
PROVIDERS: Dermatology; Physician Assistant; Student in an Organized Health Care Education/Training Program
DX: M1A.9XX1 Chronic gout, unspecified, with tophus (tophi) (principal); I50.32 Chronic diastolic (congestive) heart failure; E87.1 Hypo-osmolality and hyponatremia; I48.2 Chronic atrial fibrillation; Z79.01 Long term (current) use of anticoagulants; Z95.0 Presence of cardiac pacemaker; I25.10 Atherosclerotic heart disease of native coronary artery without angina pectoris; Z95.1 Presence of aortocoronary bypass graft; I11.0 Hypertensive heart disease with heart failure; E78.5 Hyperlipidemia, unspecified; Z95.3 Presence of xenogenic heart valve; E87.6 Hypokalemia; D64.9 Anemia, unspecified; N40.0 Benign prostatic hyperplasia without lower urinary tract symptoms; J44.9 Chronic obstructive pulmonary disease, unspecified; M19.071 Primary osteoarthritis, right ankle and foot; M19.041 Primary osteoarthritis, right hand
CPT/HCPCS: 2NBSP; 36415; 73120-RT; 82436; 87070; 87147; 93005; 93010; 96360; J0696; J1650

== ENCOUNTER 2017-10-09 18:30 | Inpatient (IN) | payer OTHER ==
[~2017-10-09] VITALS: Ht 170.2 cm; Wt 82.6 kg
[~2017-10-09 18:30] MED LIST changes: +ALLOPURINOL100 M1 PO; +CLOBETASOL EMOL15 GM TOP; +COUMADIN5 M2 PO; -COUMADIN7.5 M1 PO; +PREDNISONE20 M1 PO
--- NOTE | 2017-10-09 18:55 | ED GENERAL ADULT ---
History of Present Illness General Chief Complaint: Dizziness Stated Complaint: BIBA DIZZINESS WITH SKIN TEAR TO L ARM +COUMADIN Source: patient Exam Limitations: poor historian Vital Signs & Intake/Output Vital Signs & Intake/Output Vital Signs Date Time Temp Pulse Resp B/P B/P Pulse O2 O2 Flow FiO2 Mean Ox Delivery Rate 10/09 2133 98.0 88 18 100/65 95 Room Air 10/09 2100 98.4 77 20 104/57 96 Room Air 10/09 1922 97.9 91 18 104/70 100 Nasal 2.0L Cannula 10/09 1850 97 Nasal 2.0L Cannula 10/09 1850 85 16 101/58 96 Nasal 2.0L Cannula 10/09 184 86 18 97/64 94 Nasal 2.0L Cannula 10/10 1839 97.8 108 18 90/56 92 Room Air Allergies Coded Allergies: NO KNOWN ALLERGIES (12/09/13) Triage Nurses Notes Reviewed? yes Onset: Abrupt Duration: hour(s): Timing: single episode today HPI: 76 year old male presents to the Emergency Department after having a dizzy spell while at [employer]. He states he got weak, felt dizzy and was asisted by others to the ground untill EMT's arrived. on arrival he was hypotensive, and noted to have a skin tear on the posterior aspect of his left forearm. He denies chest pain or shortness of breath. (Arthur Morrissey DO) Reconcile Medications Acetaminophen (Tylenol) 325 MG TABLET 650 MG PO Q8 PRN PAIN SCALE 1-3 (MILD) Allopurinol 100 MG TABLET 100 MG PO DAILY Gout flare . Ferrous Sulfate 325 MG (65 MG IRON) TABLET 1 TAB PO BID SUPPLEMENT (Reported) Linaclotide (Linzess) 145 MCG CAPSULE 1 CAP PO DAILY GI (Reported) Loratadine (Claritin) 10 MG TABLET 1 TAB PO DAILY ALLERGIES (Reported) Metoprolol Tartrate 25 MG TABLET 1 TAB PO BID HEART/BP (Reported) Paroxetine HCl (Paxil) 10 MG TABLET 1 TAB PO DAILY MENTAL HEALTH (Reported) Rosuvastatin Calcium (Crestor) 20 MG TABLET 1 TAB PO EOD CHOLESTEROL ( Reported) Spironolactone 25 MG TABLET 1 TAB PO DAILY DIURETIC (Reported) Tamsulosin HCl 0.4 MG CAP.ER.24H 1 CAP PO DAILY PROSTATE (Reported) Torsemide 20 MG TABLET 1 TAB PO DAILY CHF (Reported) Umeclidinium Brm/Vilanterol Tr (Anoro Ellipta 62.5-25 Mcg INH) 62.5 MCG-25 MCG/ ACTUATION BLST.W.DEV 1 PUFF INH DAILY COPD (Reported) Warfarin Sodium (Coumadin) 5 MG TABLET 1 TAB PO DAILY afib (Reported) (Loretta LIND,Anastacio) Past History Travel History Traveled to [place] past 21 day No Medical History Any Pertinent Medical History? 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 Yes (Arthur Morrissey DO) Review of Systems Review of Systems Constitutional: Reports: see HPI, weakness. Denies: fever. EENTM: Reports: no symptoms. Denies: double vision, visual changes. Respiratory: Reports: no symptoms. Denies: short of breath. Cardiovascular: Reports: no symptoms. Denies: chest pain. GI: Reports: no symptoms. Genitourinary: Reports: no symptoms. Musculoskeletal: Reports: no symptoms. Skin: Reports: see HPI, lesions (skin tear to left fore arm). Neurological/Psychological: Reports: see HPI, weakness, other (dizziness). Denies: headache. Hematologic/Endocrine: Reports: no symptoms. Immunologic/Allergic: Reports: no symptoms. All Other Systems: Reviewed and Negative (Arthur Morrissey DO) Physical Exam Physical Exam General Appearance: well developed/nourished, alert, awake, mild distress Head: atraumatic, normal appearance Eyes: Bilateral: normal appearance, PERRL, EOMI. Ears, Nose, Throat: normal ENT inspection Neck: normal inspection Respiratory: normal breath sounds, decreased breath sounds Cardiovascular: regular rate/rhythm Peripheral Pulses: 4+ radial (R), 4+ radial (L) Gastrointestinal: soft, non-tender Back: normal inspection Extremities: injury present (skin tear left fore arm) Neurologic/Psych: no motor/sensory deficits, awake, alert, oriented x 3 Skin: intact, normal color, warm/dry, skin tear to left fore arm Core Measures ACS in differential dx? No CVA/TIA Diagnosis: No Sepsis Present: No Sepsis Focused Exam Completed? No (Ghanshyam TORRES,Arthur Wong) Progress Differential Diagnoses I considered the following diagnoses in my evaluation of the patient: [ Dehydration, anemia, dysrhythmia, adverse drug reaction, acute coronary syndrome ,] Plan of Care: Orders Procedure Date/time Status CHF Diet 10/10 B Active ECHOCARDIOGRAM 10/10 0800 Active TROPONIN LEVEL 10/10 0600 Active PROTHROMBIN TIME 10/10 0600 Active MAGNESIUM 10/10 0600 Active CBC WITHOUT DIFFERENTIAL 10/10 0600 Active BASIC ELECTROLYTES PLUS BUN&CR 10/10 0600 Active EKG 10/10 0600 Active TROPONIN LEVEL 10/10 0000 Active EKG 10/10 0000 Active Teach/Educate 10/09 2153 Active Pain Treatment and Response 10/09 2153 Active Nutritional Intake, Monitor 10/09 2153 Active Isolation 10/09 2153 Active Patient Care Conference 10/09 2153 Active Pathway - chart 10/10 2131 Active House Staff 10/09 213 Active Patient Data 10/09 2032 Active OXYGEN SETUP (GEN) 10/09 2021 Active Saline Lock 10/09 2021 Active Admit to inpatient 10/09 2021 Active Vital Signs 10/09 2021 Active Activity/Ambulation 10/09 2021 Active Code Status 10/09 2021 Active BLOOD CULTURE 10/09 2020 Active B-TYPE NATRIURETIC PEP (BNP) 10/09 1851 Complete SERUM OSMOLALITY 10/09 1848 Active Intake & Output 10/09 1846 Active TROPONIN LEVEL 10/09 1834 Active PARTIAL THROMBOPLASTIN TIME 10/09 1834 Complete PROTHROMBIN TIME 10/09 1834 Complete MAGNESIUM 10/09 1834 Active D-DIMER 10/09 1834 Complete COMPREHENSIVE METABOLIC PANEL 10/09 1834 Active CBC WITHOUT DIFFERENTIAL 10/09 1834 Complete EKG 10/09 1834 Active TRC EVALUATION (GEN) 10/09 UNK Active CHF Core Measures 10/09 UNK Active Lab Add-on Test 10/09 UNK Active Weight 10/09 UNK Active VTE Mechanical Prophylaxis 10/09 UNK Active Current Medications Sig/Ifeanyi Start time Last Medication Dose Stop Time Status Admin Atorvastatin Calcium 80 MG 1700 10/10 1700 AC (Lipitor) Ferrous Sulfate 325 MG BID 10/10 899 AC (Feosol) Linaclotide 145 MCG DAILY 10/10 899 AC (Linzess) Loratadine 10 MG DAILY 10/10 899 AC (Claritin) Paroxetine HCl 10 MG DAILY 10/10 899 AC (Paxil) Tamsulosin HCl 0.4 MG DAILY 10/10 899 AC (Flomax) Metoprolol Tartrate 25 MG BID 10/09 2199 AC (Lopressor) Furosemide 40 MG BID 10/09 2130 AC (Lasix) Acetaminophen 650 MG Q6P PRN 10/09 2129 AC (Tylenol) Laboratory Tests 10/09/17 1848: Rtj-M-Kddcutmfwou Pept 1240 H 10/09/17 1848: Anion Gap 13, Estimated GFR 46 L, BUN/Creatinine Ratio 29.3 H, Glucose 88, Serum Osmolality Pending, Calcium 9.2, Magnesium 1.7, Total Bilirubin 3.0 H, AST 42, ALT 51, Alkaline Phosphatase 127 H, Troponin I < 0.01, Total Protein 6.5, Albumin 3.8, Globulin 2.7, Albumin/Globulin Ratio 1.4, PT 15.0 H, INR 1.37 H, APTT 31, D-Dimer High Sensitivty 318 H, CBC w Diff NO MAN DIFF REQ, RBC 3.33 L, MCV 90.3, MCH 30.9, MCHC 34.3, RDW 19.0 H, MPV 7.9, Gran % 83.0 H, Lymphocytes % 6.0 L, Monocytes % 8.9, Eosinophils % 1.6, Basophils % 0.5, Absolute Granulocytes 5.4, Absolute Lymphocytes 0.4 L, Absolute Monocytes 0.6, Absolute Eosinophils 0.1, Absolute Basophils 0 Microbiology 10/09 2033 BLOOD: Blood Culture - RECD 10/10 2023 BLOOD: Blood Culture - RECD Initial ED EKG: AFIB Prior EKG: unchanged Comments: The patient was placed on a awake overnight monitor. 500 mL fluid bolus was given. Labs were drawn. EKG was ordered. The patient was signed out to Dr. Burgos for further evaluation at 7 PM. (Arthur Morrissey DO) Diagnostic Imaging: Viewed by Me: Radiology Read. Discussed w/RAD: Radiology Read. CXR Impression: Although there has been an interval improvement in the consolidation identified on the prior study, there are still patchy opacities of the right lower lung also with a small pleural effusion and vascular congestion. The findings are most suggestive of congestive heart failure exacerbation. A superimposed infectious or neoplastic process is not excluded and followup to resolution is recommended. (Anastacio Burgos MD) Departure Departure Condition: Stable Referrals: Ady San MD (PCP/Family) Departure Forms: Customer Survey General Discharge Information (Arthur Morrissey DO) Departure Time of Disposition: 2020 Disposition: STILL A PATIENT Clinical Impression Primary Impression: Pneumonia Secondary Impressions: CHF (congestive heart failure), Chronic atrial fibrillation, Hyponatremia, Hypotension, Weakness Admission Note Spoke With: Elaine LIND,Jeferson Documentation of Exam: Documentation of any treatments & extenuating circumstances including Concerns Regarding Discharge (functional status, medication knowledge or non-compliance, living conditions, etc.) that warrant an admission rather than observation: Supplemental oxygen IV antibiotics IV diuresis serial lab exam medication adjustment physical therapy cardiology evaluation continuing care discharge planning (Anastacio Burgos MD) Critical Care Note Critical Care Note Critical Care Time: non-applicable (Arthur Morrissey DO)
[2017-10-09 19:21] LABS: ABSOLUTE BASOPHIL COUNT 0 /CUMM (0.0-0.2); ABSOLUTE EOSINOPHIL COUNT 0.1 /CUMM (0.0-0.7); ABSOLUTE GRANULOCYTE CT 5.4 /CUMM (1.4-6.5); ABSOLUTE LYMPH COUNT 0.4 /CUMM (1.2-3.4); ABSOLUTE MONOCYTE COUNT 0.6 /CUMM (0.10-0.60); BASOPHIL % 0.5 % (0.0-2.0); EOSINOPHIL % 1.6 % (0-5); MEAN CORPUSCULAR HGB 30.9 PG (27.0-31.0); MEAN CORPUSCULAR HGB CONC 34.3 G/DL (33.0-37.0); MEAN CORPUSCULAR VOLUME 90.3 FL (80.0-94.0); MEAN PLATELET VOLUME 7.9 FL (7.4-10.4); PLATELET COUNT 97 /CUMM (130-400); RED BLOOD CELL CT 3.33 /CUMM (4.70-6.10); WHITE BLOOD CELL COUNT 6.5 /CUMM (4.8-10.8)
--- NOTE | 2017-10-09 19:44 | RADIOLOGY REPORT ---
EXAMINATION: XR CHEST CLINICAL INFORMATION: Difficulty breathing. Low O2 saturations. COMPARISON: 03/24/2017 TECHNIQUE: 2 views of the chest were obtained. FINDINGS: Significant interval improvement in the right lower lobe consolidation when compared with the prior study. Patchy right basilar opacity remains. The lungs are hypoinflated which limits evaluation. Central pulmonary vascular congestion is seen. No evidence of pneumothorax bilaterally. No definite focal consolidations involving the left lung. Small right pleural effusion. Cardiomegaly. Aortic valve replacement. Median sternotomy wires are intact. Mediastinal surgical clips. Right chest pacer with leads projecting over the right atrium and ventricle. No acute osseous abnormality. Vertebroplasty cement within L1. IMPRESSION: Although there has been an interval improvement in the consolidation identified on the prior study, there are still patchy opacities of the right lower lung also with a small pleural effusion and vascular congestion. The findings are most suggestive of congestive heart failure exacerbation. A superimposed infectious or neoplastic process is not excluded and followup to resolution is recommended.
--- NOTE | 2017-10-09 20:33 | History & Physical ---
Ra Teran 10/09/172030: General Information and HPI MD Statement: I have seen and personally examined KT DAVEY and documented this H&P. The patient is a 76 year old M who presented with a patient stated chief complaint of [near syncope]. Source of Information: patient Exam Limitations: no limitations History of Present Illness: The patient is a 76-year-old gentleman with a past medical history significant for atrial fibrillation, coronary artery disease (CABG), hypertension, hyperlipidemia, mitral valve repair, aortic valve replacement, and atrial fibrillation who was brought in by ambulance due to dizziness. He went to the [employer] store today and he went to use the bathroom and he felt sluggish, he got shortness of breath and felt sluggish and dizzy and couple of people around him helped him down onto the ground and then up to sit on a chair, then EMS was called. these events lasted for a couple of minutes. He did not lose his consciousness during this event and does not report any aura or abnormal movements. He did not have any headache afterwards. He had an old wound on his arm which opened again during this event at the store and he had bleeding from this wound. This was his first experience of near syncope. He reports that he feels a little fatigued during today. He did not have any chest pain or cough but previously he has had shortness of breath and he has heart failure. Recently he fell while he was climbing a chair and this event led to fracture of 3 of his spines in his back and he had a surgery in the recent few months. He visits his oil pit attendant regularly and goes to CHF clinic once in a while. Past medical history: Atrial fibrillation (on warfarin), permanent pacemaker, coronary artery disease, CABG, HF, hypertension, hyperlipidemia, mitral valve repair, aortic valve replacement, pneumonia, lower GI bleeding, chronic lower back pain, thrombocytopenia, prostate cancer, gout, TIA, seasonal allergy. Past surgical history: CABG, pacemaker, lower back surgery, aortic valve replacement, mitral valve repair, cholecystectomy, Allergies: No known drugs or food allergy Family history: Not significant Social history: Technique the lives alone he is but his ex- helps him out with cooking food and keeping his sodium intake low, he stopped smoking 40 years ago, he drinks alcohol occasionally and he does not use any recreational drug. Lab: PT: 15.0, INR: 1.37, APTT: 31 D-dimer: 318 WBC: 6.5, Hb: 10.3, HCT: 30.0, PLT: 97, Sodium: 129, potassium: 5.4, chloride: 95, CO2: 21, BUN: 44, CR: 1.5, blood glucose 88 Calcium: 9.2, magnesium: 1.7, Total bili: 3.0, alkaline phosphatase 127, ProBNP: 1240 Troponin: 0.01 EKG: A. fib Imaging: Chest x-ray: Although there has been an interval improvement in the consolidation identified on the prior study, there are still patchy opacities of the right lower lung also with a small pleural effusion and vascular congestion. The findings are most suggestive of congestive heart failure exacerbation. A superimposed infectious or neoplastic process is not excluded and followup to resolution is recommended. Allergies/Medications Allergies: Coded Allergies: NO KNOWN ALLERGIES (12/09/13) Home Med list Acetaminophen (Tylenol) 325 MG TABLET 650 MG PO Q8 PRN PAIN SCALE 1-3 (MILD) Allopurinol 100 MG TABLET 100 MG PO DAILY Gout flare . Ferrous Sulfate 325 MG (65 MG IRON) TABLET 1 TAB PO BID SUPPLEMENT (Reported) Linaclotide (Linzess) 145 MCG CAPSULE 1 CAP PO DAILY GI (Reported) Loratadine (Claritin) 10 MG TABLET 1 TAB PO DAILY ALLERGIES (Reported) Metoprolol Tartrate 25 MG TABLET 1 TAB PO BID HEART/BP (Reported) Paroxetine HCl (Paxil) 10 MG TABLET 1 TAB PO DAILY MENTAL HEALTH (Reported) Rosuvastatin Calcium (Crestor) 20 MG TABLET 1 TAB PO EOD CHOLESTEROL ( Reported) Spironolactone 25 MG TABLET 1 TAB PO DAILY DIURETIC (Reported) Tamsulosin HCl 0.4 MG CAP.ER.24H 1 CAP PO DAILY PROSTATE (Reported) Torsemide 20 MG TABLET 1 TAB PO DAILY CHF (Reported) Umeclidinium Brm/Vilanterol Tr (Anoro Ellipta 62.5-25 Mcg INH) 62.5 MCG-25 MCG/ ACTUATION BLST.W.DEV 1 PUFF INH DAILY COPD (Reported) Warfarin Sodium (Coumadin) 5 MG TABLET 1 TAB PO DAILY afib (Reported) Compliance With Home Meds: GOOD Past History Travel History Traveled to [place] past 21 day No Medical History Neurological: TIA EENT: allergies, epistaxis Cardiovascular: AFIB, CAD, CHF, hypertension, hyperlipidemia Respiratory: pneumonia Gastrointestinal: lower GI bleed Hepatic: NONE Renal: NONE Musculoskeletal: chronic back pain, falls Psychiatric: NONE Endocrine: NONE Blood Disorders: thrombocytopenia Cancer(s): prostate cancer 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 Review of Systems Review of Systems Constitutional: Reports: see HPI. EENTM: Reports: see HPI. Denies: blurred vision, double vision, visual changes. Cardiovascular: Reports: see HPI, syncope. Respiratory: Reports: see HPI, short of breath. GI: Reports: see HPI. Genitourinary: Reports: see HPI. Musculoskeletal: Reports: see HPI. Skin: Reports: see HPI. Neurological/Psychological: Reports: see HPI. Hematologic/Endocrine: Reports: see HPI. Immunologic/Allergic: Reports: see HPI. Exam & Diagnostic Data Last 24 Hrs of Vital Signs/I&O Vital Signs Date Time Temp Pulse Resp B/P B/P Pulse O2 O2 Flow FiO2 Mean Ox Delivery Rate 10/09 2229 87 108/70 10/09 220 97.8 83 22 108/70 95 10/09 2155 Room Air 10/09 2133 98.0 88 18 100/65 95 Room Air 10/09 2101 98.4 77 20 104/57 96 Room Air 10/09 1923 97.9 91 18 104/70 100 Nasal 2.0L Cannula 10/09 1851 97 Nasal 2.0L Cannula 10/09 185 85 16 101/58 96 Nasal 2.0L Cannula 10/09 1841 86 18 97/64 94 Nasal 2.0L Cannula 10/09 1840 97.8 108 18 90/56 92 Room Air Intake & Output 10/10 0800 10/10 0000 10/09 1600 Intake Total 1000 Output Total 1175 Balance -175 Intake, IV 1000 Output, Urine 1175 Patient 184 lb Weight Weight Bed scale Measurement Method Physical Exam General Appearance Alert, Oriented X3, Cooperative, No Acute Distress Skin No Rashes, He had a bruise on his right forearm and a bandage on his arm which was the site of the wound Skin Temp/Moisture Exam: Warm/Dry Sepsis Skin Exam (color): Normal for Ethnicity HEENT Atraumatic, PERRLA, EOMI Neck Supple, No LAD, JVD 7 cmH2O Cardiovascular Regular Rate, Normal S1, Normal S2 Lungs Normal Air Movement (Inspiratory rhonchi) Abdomen Normal Bowel Sounds, Soft, No Tenderness Neurological Normal Speech, Strength at 5/5 X4 Ext, Normal Tone, Sensation Intact, Cranial Nerves 3-12 NL Extremities No Clubbing, No Tenderness/Swelling, 4+ pitting edema in lower extremities bilaterally, up to knee level Vascular Normal Pulses, Pulses Symmetrical Sepsis Peripheral Pulse Location: Radial Sepsis Peripheral Pulse Exam: Normal Sepsis Cap Refill Exam: <2 Sec Assessment/Plan Assessment: The patient is a 76-year-old man with a significant past medical history of coronary vascular disease including A. fib, CABG, hypertension, hyperlipidemia, mitral and aortic valve repair, who was brought in by ambulance due to dizziness. During the interview he felt better and his vital signs were within normal limits. No acute distress and his JVP was 8 cm H2O. He had bilateral 4+ lower extremity pitting edema. His lab data revealed a sodium of 129, potassium of 5.4, creatinine of 1.5, BNP of 1240, troponin less than 0.01. He had atrial fibrillation in EKG and on chest imaging he had congested pulmonary vasculature with a small pleural effusion. These could be signs of a developing pneumonia so antibiotics were started for him (ceftriaxone, azithromycin). Based on the history and physical examination of the patient seems that the patient had a near syncope which was probably caused by acute on chronic heart failure. Patient is admitted to telemetry for close monitoring, strict measurement of input and outputs, serial EKG and troponins, cardiology consult, and echo. Problem list: Near syncope episode probably due to acute on chronic heart failure. Possible developing pneumonia Acute renal failure Hyperkalemia Hyponatremia re-injury to left forearm wound As Ranked By This Provider Problem List: 1. H/O aortic valve repair 2. H/O mitral valve repair 3. Pacemaker 4. Pleural effusion 5. Hyponatremia Core Measures/Misc (12/04) Acute Coronary Syndrome ACS Diagnosis: No Congestive Heart Failure Congestive Heart Failure Diagnosis Yes Cerebrovascular Accident CVA/TIA Diagnosis: No VTE (View Protocol) VTE Risk Factors Age>40 No Mechanical VTE Prophylaxis d/t N/A MechProphylax Ordered No VTE Pharm Prophylaxis d/t NA PharmProphylax ordered Sepsis (View protocol) Sepsis Present: No If YES complete Sepsis Event Note If YES complete Sepsis Event Note Salvador Green MD 10/09/173: Core Measures/Misc (12/04) Sepsis (View protocol) If YES complete Sepsis Event Note If YES complete Sepsis Event Note Resident Review Statement Resident Statement: examined this patient, discussed with manager internal, agreed with manager internal, reviewed EMR data (avail) Other Findings: History of present illness 76-year-old man with past medical history of CAD status post CABG, HFpEF, A. fib status post PPM/maze on Coumadin, hypertension, hyperlipidemia, lower GI bleed, chronic back pain, chronic thrombocytopenia, and prostate cancer seen for evaluation of weakness, dizziness, and shortness of breath. Patient awoke in his normal state of health when he went to stop and shop to buy some groceries. During his trip he began to feel weak and went to use the restroom. Shortly after arriving to the restroom he became dizzy and short of breath and was immediately sought to by other customers who held him up. EMS was contacted and patient was brought to the [place] ED for further evaluation. Patient was reportedly "hypotensive" upon arrival for which he received a 500 cc normal saline bolus however had subjective worsening of his shortness of breath for which she was given 40 mg IV Lasix. Presently patient states that he otherwise feels well, but does admit to persistent weakness and fatigue with mild shortness of breath. Review of systems He otherwise denies any headache, fever, chills, vision changes, current lightheadedness/dizziness, chest pain, palpitations, heartburn, current shortness of breath, cough, nausea, vomiting, diarrhea, constipation, urinary symptoms, numbness, tingling, or weakness. Objective Vitals-temperature 97.8-97.9, HR 85-108, RR 16-18, BP 90-104/56-70, O2 92-100% on 2.0 L Physical exam -General: Well-developed, well-nourished elderly man in no acute distress -HEENT: NCAT, PERRLA, EOMI, mild scleral icterus, moist mucous membranes -Neck: Supple, JVP ~8 cm H2O, trachea midline, no accessory respiratory muscle use -Cardio: 2/6 systolic murmur; irregularly irregular -Pulmonary: Diminished bibasilar airflow with scant right lower lobe crackles -Abdomen: Soft, nontender, nondistended, bowel sounds intact -Neuro: Awake and alert, cranial nerves II through XII grossly intact -Extremities: 4+ bilateral lower extremity pitting edema, normal pulses Labs/imaging/studies -CBC: WBC 6.5, hemoglobin 10.3, hematocrit 30.0, platelet 97 -BMP: Sodium 129, potassium 5.4, chloride 95, CO2 21, BUN 44, creatinine 1.3, anion gap 13, glucose 88 -LFT: T bili 3.0, otherwise within normal limits -Miscellaneous: Magnesium 1.7, troponin I <0.01, BNP 1240, d-dimer 318, INR 1.37 -EKG: Atrial fibrillation -CXR: Although there has been an interval improvement in the consolidation identified on the prior study, there are still patchy opacities of the right lower lung also with a small pleural effusion and vascular congestion. The findings are most suggestive of congestive heart failure exacerbation. A superimposed infectious or neoplastic process is not excluded and followup to resolution is recommended. -Transthoracic echocardiogram 12/09/13: * Technically difficult study. * Left ventricular cavity size normal. Left ventricular wall thickness at upper limits of normal. No obvious regional wall motion abnormalities (septal motion consistent with post-operative state). * Left ventricular ejection fraction is estimated at > 55 %. * Left sided filling pressures are elevated. * Right ventricle at upper limits of normal for size. Mildly reduced right ventricular global systolic function. Catheter/pacemaker wire in the right ventricular cavity. * Moderate to severe mitral regurgitation. * Probable bioprosthetic aortic valve (leaflets not well visualized). The mean gradient across the aortic valve is 21 mmHg with a DI of 0.5 (indicating no evidence of significant prosthetic valve stenosis). * RVSP > 50 mmHg. Assessment 76-year-old man with multiple medical problems including a significant cardiovascular history seen for evaluation of acute onset dizziness, weakness, and shortness of breath. Presently patient feels well after receiving intravenous Lasix. Vital signs are unremarkable. Physical exam demonstrates an elderly man in no acute distress with elevated JVP, pulmonary crackles, and lower extremity swelling. Significant labs include sodium 129, potassium 5.4, creatinine 1.5, troponin I < 0.01, and BNP 1240. Chest x-ray demonstrates pulmonary vascular congestion and a small pleural effusion. EKG demonstrates known atrial fibrillation. In the ED patient received ceftriaxone, azithromycin, normal saline 500 cc bolus, and Lasix 40 mg IV. Clinically patient appears to have had a near syncopal episode possibly secondary to acute on chronic heart failure with preserved ejection fraction. He has multiple new electrolyte abnormalities and mildly worsened renal dysfunction possibly secondary to early cardiorenal syndrome. Patient is to be admitted to the telemetry floor for telemetry monitoring, strict ins and outs, daily weights, intravenous diuresis, serial troponin/EKG, cardiology evaluation, and echocardiogram. Problem List -Acute on Chronic diastolic heart failure -Possible early community acquired pneumonia -Acute kidney injury -Hyponatremia -Hyperkalemia -Left forarm skin tear -Subtherapeutic INR -Acute on Chronic thrombocytopenia -Recent fall with lumbar fusion/kyphoplasty -CAD s/p CABGx2 -AFib s/p PPM/Maze, on coumadin -HFpEF, LVEF 55% -Hypertension -Hyperlipidemia -Chronic back pain -History of lower GI bleed -History of prostate cancer, without treatment Plan -Admit to telemetry -Telemetry monitoring -Strict Ins & Outs, daily weights -Total respiratory care -Avoid nephrotoxic agents -Follow off antibiotics for now -Lasix 40 mg IV BID, titrate to net negative 1-2L/day -Continue home meds: iron, linzess, claritin, metoprolol, paxil, statin, flomax -Hold spironolactone and allopurinol for acute kidney injury, restart as needed/ tolerated -Consult with wound care for left arm injury -Check serum OSM -Trend troponin / EKG until peak or three negative sets -Transthoracic echocardiogram -Monitor Na, K, Creatinine -Daily INR, dose coumadin -Pain control with acetaminophen -Heart Healthy Diet -DVT PPx with coumadin -FULL CODE Jeferson Henry MD 10/09/17 0229: Core Measures/Misc (12/04) Sepsis (View protocol) If YES complete Sepsis Event Note If YES complete Sepsis Event Note Attending MD Review Statement Attending Statement Attending MD Statement: examined this patient, discuss w/resident/PA/LAUNDRY TECH, agreed w/resident/PA/LAUNDRY TECH, reviewed EMR data (avail) Attending Assessment/Plan: 76M PMH atrial fibrillation on Coumadin, s/p PPM and Maze procedure, CAD s/p CABG, HFpEF, HTN, HLD, mitral valve repair, bioprosthetic aortic valve presenting with near syncopal episode. Was in his usual state of health and at the store, felt lightheaded and had to be helped to the ground, when EMS was called. He did not lose consciousness or fall. He felt short of breath and lightheaded prior to the episode. Normal PO intake today. Found to be borderline hypotensive 90/56 on arrival. Bibasilar crackles, no edema, labs show BNP 1240, creatinine 1.5 (baseline 1.2), sodium 129, CXR with pulmonary vascular congestion and unresolved RLL infiltrate as compared to prior. Was given Lasix in ED with improvement in BP. 1. Acute on chronic diastolic CHF 2. DONATO 3. Hypotension 4. Near syncope Plan: Admit to telemetry, cardiology consult, hold on further Lasix for now, monitor renal function and electrolytes, hold off on antibiotics for now.
[2017-10-09 20:59] LABS: PTT 31 SEC (25-37)
[2017-10-09] MEDS ORDERED: TORSEMIDE20 M1 PO (21:21)
[2017-10-09 22:05] VITALS: BP 108/70
--- NOTE | 2017-10-09 23:30 | Admission Certification ---
Admission Certification Certification Statement - As attending physician, I certify that at the time of - admission, based on clinical presentation, severity of - symptoms, need for further diagnostic testing and - therapeutic interventions, and risk of adverse outcomes - without in-hospital treatment, in my clinical assessment, - this patient requires an acute hospital stay for a minimum - of two nights or longer. I have also considered psychsocial - factors such as support system, advanced age, financial - issues, cognitive issues, and failed out-patient treatments, - past re-admission history, safety of patient, and lack of - compliance as applicable. Specific rationale supporting this admission is: Near syncopal episode in the setting of DONATO and acute CHF
[2017-10-10 06:22] VITALS: BP 100/60
--- NOTE | 2017-10-10 07:16 | PN- Housestaff ---
Lulú Valera 10/10/17 0716: Subjective Follow-up For: Acute on Chronic CHF, presyncope, hyponatremia, hyperkalemia Complaints: no complaints Tele-Events Since Last Visit: a fib. HR 75-93 Subjective: Pt seen and examined lying comfortably in bed. no complaints/no acute events Review of Systems Constitutional: Reports: see HPI. Objective Last 24 Hrs of Vital Signs/I&O Vital Signs Date Time Temp Pulse Resp B/P B/P Pulse O2 O2 Flow FiO2 Mean Ox Delivery Rate 10/10 2258 98.5 20 10/10 2043 94 110/70 10/10 2035 94 Room Air Room Air 10/10 1355 97.8 86 18 102/86 94 10/10 1228 83 98/68 10/10 1042 94 96/68 10/10 0930 Room Air 10/10 0831 72 96/62 10/10 0831 72 96/62 10/10 0800 Room Air Room Air 10/10 0622 98.4 76 22 100/60 94 Intake & Output 10/11 0800 10/11 0000 10/10 1600 Intake Total 240 805 Output Total 700 150 Balance -460 655 Intake, IV 5 Intake, Oral 240 800 Number 1 Bowel Movements Output, Urine 700 150 Patient 185 lb Weight Weight Bed scale Measurement Method Physical Exam General Appearance: Alert, Oriented X3, Cooperative, No Acute Distress Skin: Large echymotic bruises on mid and lower back, left arm Skin Temp/Moisture Exam: Cool/Dry Sepsis Skin Exam (color): Normal for Ethnicity HEENT: Atraumatic, PERRLA, Mucous Membr. moist/pink Neck: Supple Cardiovascular: Regular Rate, Normal S1, Normal S2 Lungs: Normal Air Movement, b/l crackles Abdomen: Normal Bowel Sounds, Soft, No Tenderness, No Hepatospenomegaly Neurological: Normal Speech, Strength at 5/5 X4 Ext Extremities: No Clubbing, No Cyanosis, b/l l/l pitting edema Assessment/Plan Assessment: 76-year-old man with a significant past medical history of coronary vascular disease including A. fib on coumadin, CABG, hypertension, hyperlipidemia, mitral and aortic valve repair, pacemaker, fall 6 weeks ago s/p kyphoplasty, who was brought in by ambulance due to dizziness, presyncope, probably caused by acute on chronic heart failure. ECHO: June 14, 2017 demonstrating an ejection fraction of 55% right ventricle is mildly enlarged mild biatrial enlargement, dilated ascending aorta 4.5 cm, bioprosthetic aortic valve functioning normally, bioprosthetic mitral valve with moderate stenosis. Vitals: Afebrile, sating well on RA. BP has been soft 90/60. Problem list: -Presyncope & SOB- Acute on chronic diastolic heart failure -CAD s/p CABG. myocardial infarction ruled out -Status post pacemaker -Permanent atrial fibrillation on Coumadin -Status post bioprosthetic mitral and aortic valves with moderate mitral stenosis on a recent echocardiogram -Hypertension now with borderline hypotension -Dyslipidemia PLAN: #acute on chronic CHF: * cardiac monitring on tele floor * Monitor daily weights/ I and O #Hyperkalemia/Hyponatremia/DONATO: * monitir bep * Monitor BUN/Cr ratio which was 30.8 #HTN: * Blood pressure is borderline this morning in the 90s. He denies any dizziness. * Hold lasix and losartan #Afib/coumadin/pacemaker: * Check INR and dose coumadin * interrogate pacemaker #Left arm wound: * Pt had a wound from a few weeks ago, which opened up * wound consult requested * Change dressings # US Doppler L/L to exclude DVT today DVT PX: warfarin and alps Diet: heart healthy CHF Code: Full Problem List: 1. Chronic atrial fibrillation 2. Hyponatremia 3. Hypotension 4. CHF exacerbation 5. Hyperkalemia Pain Ratin Pain Location: none Pain Goal: Remain pain free Pain Plan: n.a Tomorrow's Labs & Rationales: cbc, bep, inr Patti LIND,Kristeldavid 10/10/17 1116: Attending MD Review Statement Attending Statement Attending MD Statement: examined this patient, discuss w/resident/PA/EXPERIM[employer], agreed w/resident/PA/[employer], reviewed EMR data (avail), discussed with nursing, discussed with case mgmt, amended to note Attending Assessment/Plan: Patient seen and examined. Lying comfortably in bed and not in any acute distress. Reports feeling better this morning. Denies chest pain or shortness of breath at rest. Denies any palpitations. Blood pressure is borderline this morning in the 90s. Denies any dizziness. On examination heart sounds are regular. Adequate air entry with mild decrease in the bases bilaterally. No added lung sounds. Abdomen soft and nontender. 2+ pedal edema bilaterally no predominance around the ankles. Diffuse ecchymotic areas on the upper and lower extremities. Skin tear around the left elbow. Problems: -Acute and congestive heart failure. -Coronary artery disease -Atrial fibrillation on Coumadin. -Status post pacemaker placement. -Status post bioprosthetic mitral and aortic valves with moderate mitral stenosis on a recent echocardiogram -Hypotension -Chronic thrombocytopenia. Plan: -Continue diuresis however will do so with caution given his borderline blood pressure. -Continue metoprolol for his atrial fibrillation with close monitoring of blood pressure. -Check daily weights and input/output -Repeat echocardiogram as recommended by the cardiology service. -INR subtherapeutic. She was given a higher dose of Coumadin yesterday. Resume her home Coumadin dose today. Monitor closely in view of her chronic thrombocytopenia. -Pacemaker interrogation. -Dopplers of the lower extremities to rule out deep vein thrombosis.
[2017-10-10 07:48] LABS: ABSOLUTE BASOPHIL COUNT 0 /CUMM (0.0-0.2); ABSOLUTE EOSINOPHIL COUNT 0.1 /CUMM (0.0-0.7); ABSOLUTE GRANULOCYTE CT 4.1 /CUMM (1.4-6.5); ABSOLUTE LYMPH COUNT 0.4 /CUMM (1.2-3.4); ABSOLUTE MONOCYTE COUNT 0.4 /CUMM (0.10-0.60); BASOPHIL % 0.5 % (0.0-2.0); EOSINOPHIL % 1.6 % (0-5); GRANULOCYTE % 81.6 % (42.2-75.2); HEMATOCRIT 26.2 % (42-52); MEAN CORPUSCULAR HGB 30.8 PG (27.0-31.0); MEAN CORPUSCULAR HGB CONC 34.2 G/DL (33.0-37.0); MEAN CORPUSCULAR VOLUME 90.1 FL (80.0-94.0); MEAN PLATELET VOLUME 8.5 FL (7.4-10.4); PLATELET COUNT 80 /CUMM (130-400); RBC DISTRIBUTION WIDTH 19.1 % (11.5-14.5); RED BLOOD CELL CT 2.91 /CUMM (4.70-6.10)
[2017-10-10 08:12] LABS: PT 17.3 SEC (9.4-12.5)
--- NOTE | 2017-10-10 08:58 | Cons- Wound Care ---
General Information and HPI Consulting Request Date of Consult: 10/10/17 Requested By: Stacie Armstrong MD Reason for Consult: Left arm traumatic ulcer present on admission History of Present Illness: Patient is 76-year-old with extensive cardiac history is admitted with near- syncope found to be in congestive heart failure. He reports having had a traumatic injury to his left forearm approximately 2 weeks ago. Allergies/Medications Allergies: Coded Allergies: NO KNOWN ALLERGIES (12/09/13) Home Med List: Acetaminophen (Tylenol) 325 MG TABLET 650 MG PO Q8 PRN PAIN SCALE 1-3 (MILD) Allopurinol 100 MG TABLET 100 MG PO DAILY Gout flare . Ferrous Sulfate 325 MG (65 MG IRON) TABLET 1 TAB PO BID SUPPLEMENT (Reported) Linaclotide (Linzess) 145 MCG CAPSULE 1 CAP PO DAILY GI (Reported) Loratadine (Claritin) 10 MG TABLET 1 TAB PO DAILY ALLERGIES (Reported) Metoprolol Tartrate 25 MG TABLET 1 TAB PO BID HEART/BP (Reported) Paroxetine HCl (Paxil) 10 MG TABLET 1 TAB PO DAILY MENTAL HEALTH (Reported) Rosuvastatin Calcium (Crestor) 20 MG TABLET 1 TAB PO EOD CHOLESTEROL ( Reported) Spironolactone 25 MG TABLET 1 TAB PO DAILY DIURETIC (Reported) Tamsulosin HCl 0.4 MG CAP.ER.24H 1 CAP PO DAILY PROSTATE (Reported) Torsemide 20 MG TABLET 1 TAB PO DAILY CHF (Reported) Umeclidinium Brm/Vilanterol Tr (Anoro Ellipta 62.5-25 Mcg INH) 62.5 MCG-25 MCG/ ACTUATION BLST.W.DEV 1 PUFF INH DAILY COPD (Reported) Warfarin Sodium (Coumadin) 5 MG TABLET 1 TAB PO DAILY afib (Reported) Review of Systems Review of Systems: Noncontributory Past History Travel History Traveled to [place] past 21 day No Medical History Blood Transfusion Hx: Yes Neurological: TIA EENT: allergies, epistaxis Cardiovascular: AFIB, CAD, CHF, hypertension, hyperlipidemia Respiratory: pneumonia Gastrointestinal: lower GI bleed Hepatic: NONE Renal: NONE Musculoskeletal: chronic back pain, falls Psychiatric: NONE Endocrine: NONE Blood Disorders: thrombocytopenia Cancer(s): prostate cancer 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 Home Services at Home: Nursing, Physical Therapy Smoking Status: Former Smoker Functional Ability ADLs Independent: dressing, eating, toileting, bathing. Exam & Diagnostic Data Vital Signs and I&O Vital Signs Result Date Time B/P 96/62 10/10 0831 Pulse 72 10/10 0831 Pulse Ox 94 10/10 06 Temp 98.4 10/10 0622 Resp 22 10/10 0622 O2 Delivery Room Air 10/09 2155 O2 Flow Rate 2.0L 10/09 1923 Intake & Output 10/10 0000 10/09 1600 10/09 0800 Intake Total 1000 Output Total 1175 Balance -175 Intake, IV 1000 Output, Urine 1175 Patient 184 lb Weight Weight Bed scale Measurement Method Exam of the left forearm shows there to be approximately 2 x 2 cm partial thickness skin tear as well as a small adjacent areas of skin injury measuring approximately 2 cm x 0.2 mm there is extensive periwound ecchymosis there is no erythema induration undermining exposed bone Assessment/Plan Impression/Plan: 76-year-old with extensive cardiac history suffered a traumatic injury to his left forearm with nonhealing skin tear. Recommend daily cleansing and application of a nonadherent dressing such as Xeroform daily with gauze over dressing. Consult Acknowledgment - Thank you for your consult request.
--- NOTE | 2017-10-10 10:01 | Cons- Cardiology ---
General Information and HPI Consulting Request Date of Consult: 10/10/17 Requested By: Stacie Armstrong MD Reason for Consult: Congestive heart failure Source of Information: patient, old records Exam Limitations: no limitations History of Present Illness: The patient is a 76-year-old male with a known history of bioprosthetic aortic valve replacement, mitral valve repair followed by replacement also with a bioprosthetic valve, atrial fibrillation on Coumadin, status post pacemaker, coronary disease status post coronary bypass surgery, hypertension, hyperlipidemia, who now presents with near syncope and shortness of breath. Patient states that he awoke feeling well on the day of admission. He went to [employer] and while shopping developed fatigue. He felt the urge to urinate went to the bathroom where he became increasingly fatigued and dyspneic. He denied chest pain. He was assisted to the floor by fellow shoppers and EMS was summoned. There was no loss of consciousness. He was reportedly hypotensive upon their arrival. He does state that recently he has been experiencing more shortness of breath along with edema. He states he has been compliant with his medications. He denies PND orthopnea. He does routinely follow up with Dr. Bernardo as an outpatient. He recently had a fall approximately 6 weeks ago and is status post kyphoplasty. He had a wound to his arm at that time which reopened during this event. 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 Allergies/Medications Allergies: Coded Allergies: NO KNOWN ALLERGIES (12/09/13) Home Med List: Acetaminophen (Tylenol) 325 MG TABLET 650 MG PO Q8 PRN PAIN SCALE 1-3 (MILD) Allopurinol 100 MG TABLET 100 MG PO DAILY Gout flare . Ferrous Sulfate 325 MG (65 MG IRON) TABLET 1 TAB PO BID SUPPLEMENT (Reported) Linaclotide (Linzess) 145 MCG CAPSULE 1 CAP PO DAILY GI (Reported) Loratadine (Claritin) 10 MG TABLET 1 TAB PO DAILY ALLERGIES (Reported) Metoprolol Tartrate 25 MG TABLET 1 TAB PO BID HEART/BP (Reported) Paroxetine HCl (Paxil) 10 MG TABLET 1 TAB PO DAILY MENTAL HEALTH (Reported) Rosuvastatin Calcium (Crestor) 20 MG TABLET 1 TAB PO EOD CHOLESTEROL ( Reported) Spironolactone 25 MG TABLET 1 TAB PO DAILY DIURETIC (Reported) Tamsulosin HCl 0.4 MG CAP.ER.24H 1 CAP PO DAILY PROSTATE (Reported) Torsemide 20 MG TABLET 1 TAB PO DAILY CHF (Reported) Umeclidinium Brm/Vilanterol Tr (Anoro Ellipta 62.5-25 Mcg INH) 62.5 MCG-25 MCG/ ACTUATION BLST.W.DEV 1 PUFF INH DAILY COPD (Reported) Warfarin Sodium (Coumadin) 5 MG TABLET 1 TAB PO DAILY afib (Reported) Current Medications: Current Medications Sig/Ifeanyi Start time Last Medication Dose Route Stop Time Status Admin Acetaminophen 650 MG Q6P PRN 10/09 2129 AC PO Atorvastatin Calcium 80 MG 1700 10/10 1699 AC PO Azithromycin 500 MG ONCE ONE 10/09 2029 DC 10/09 Sodium Chloride 250 ML IV 10/09 Ceftriaxone Sodium 0 .STK-MED ONE 10/09 2038 DC .ROUTE Ceftriaxone Sodium 1,000 MG ONCE ONE 10/09 2029 DC 10/09 IV 10/09 Ferrous Sulfate 325 MG BID 10/10 09 AC 10/10 PO 0832 Furosemide 40 MG BID 10/09 2130 AC IV Furosemide 0 .STK-MED ONE 10/09 2038 DC IV Furosemide 40 MG ONCE ONE 10/09 2029 DC 10/09 IV 10/09 Linaclotide 145 MCG DAILY 10/10 09 AC 10/10 PO 0832 Loratadine 10 MG DAILY 10/10 09 AC 10/10 PO 0832 Magnesium Oxide 400 MG ONE ONE 10/10 0845 DC PO 10/10 0846 Magnesium Oxide 400 MG ONE ONE 10/10 0745 DC 10/10 PO 10/10 0746 0832 Metoprolol Tartrate 25 MG BID 10/09 2200 AC 10/09 PO 2229 Paroxetine HCl 10 MG DAILY 10/10 09 AC 10/10 PO 0832 Sodium Chloride 500 ML BOLUS ONE 10/09 1944 DC 10/09 IV 10/09 Tamsulosin HCl 0.4 MG DAILY 10/10 09 AC PO Warfarin Sodium 7.5 MG ONCE ONE 10/09 2144 DC 10/09 PO 10/09 Review of Systems Review of Systems: Eyes no blurred or double vision Ears no deafness or ringing Nose and throat no recurrent sinusitis Lungs per history of present illness Heart per history of present illness Abdomen no nausea vomiting Musculoskeletal occasional muscle and joint pains Psych no anxiety or depression Neuro without recurrent headache or seizures Endocrine no heat or cold intolerance Skin chronic ecchymosis of his back and arms status post fall Past History Travel History Traveled to [place] past 21 day No Medical History Blood Transfusion Hx: Yes Neurological: TIA EENT: allergies, epistaxis Cardiovascular: AFIB, CAD, CHF, hypertension, hyperlipidemia Respiratory: pneumonia Gastrointestinal: lower GI bleed Hepatic: NONE Renal: NONE Musculoskeletal: chronic back pain, falls Psychiatric: NONE Endocrine: NONE Blood Disorders: thrombocytopenia Cancer(s): 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 Home Services at Home: Nursing, Physical Therapy Smoking Status: Former Smoker Functional Ability ADLs Independent: dressing, eating, toileting, bathing. Exam & Diagnostic Data Vital Signs and I&O Vital Signs Date Time Temp Pulse Resp B/P B/P Pulse O2 O2 Flow FiO2 Mean Ox Delivery Rate 10/10 0831 72 96/62 10/10 0831 72 96/62 10/10 0800 Room Air Room Air 10/10 0622 98.4 76 22 100/60 94 10/09 2229 87 108/70 10/09 2205 97.8 83 22 108/70 95 10/09 2155 Room Air 10/09 2134 98.0 88 18 100/65 95 Room Air 10/09 2101 98.4 77 20 104/57 96 Room Air 10/09 1923 97.9 91 18 104/70 100 Nasal 2.0L Cannula 10/09 1851 97 Nasal 2.0L Cannula 10/09 1851 85 16 101/58 96 Nasal 2.0L Cannula 10/09 1841 86 18 97/64 94 Nasal 2.0L Cannula 10/09 1840 97.8 108 18 90/56 92 Room Air Intake & Output 10/10 1600 10/10 0800 10/10 0000 10/09 1600 10/09 0800 10/09 0000 Intake Total 1000 Output Total 400 1175 475 Balance -400 -175 -475 Intake, IV 1000 Output, Urine 400 1175 475 Patient 184 lb 139 lb Weight Weight Bed scale Bed scale Measurement Method Physical Exam: Patient is a well-developed well-nourished male appearing in no acute distress HEENT is unremarkable Neck is supple there is no JVD Lungs are clear Heart irregular rhythm S1 and S2 are normal /6.ejection murmur left sternal border gallops or rubs Abdomen bowel sounds positive Extremities without edema Neuro without focal deficits Psych alert and oriented Skin multiple ecchymotic regions of his back and extremities Lymph no lymphadenopathy Labs/Manuel Results: Laboratory Tests 10/10 10/10 10/09 0610 0025 1848 Chemistry Sodium (137 - 145 mmol/L) 136 L Potassium (3.5 - 5.1 mmol/L) 4.0 Chloride (98 - 107 mmol/L) 102 Carbon Dioxide (22 - 30 mmol/L) 22 Anion Gap (5 - 16) 11 BUN (9 - 20 mg/dL) 37 H Creatinine (0.7 - 1.2 mg/dL) 1.2 Estimated GFR (>60 ml/min) 59 L BUN/Creatinine Ratio (7 - 25 %) 30.8 H Magnesium (1.6 - 2.3 mg/dL) 1.9 Troponin I (<0.11 ng/ml) < 0.01 < 0.01 Lmg-F-Gotmvaltvjw Pept (<125 pg/mL) 1240 H Coagulation PT (9.4 - 12.5 SEC) 17.3 H INR (0.90 - 1.17) 1.58 H Hematology CBC w Diff NO MAN DIFF REQ WBC (4.8 - 10.8 /CUMM) 5.0 RBC (4.70 - 6.10 /CUMM) 2.91 L Hgb (14.0 - 18.0 G/DL) 8.9 L Hct (42 - 52 %) 26.2 L MCV (80.0 - 94.0 FL) 90.1 MCH (27.0 - 31.0 PG) 30.8 MCHC (33.0 - 37.0 G/DL) 34.2 RDW (11.5 - 14.5 %) 19.1 H Plt Count (130 - 400 /CUMM) 80 L MPV (7.4 - 10.4 FL) 8.5 Gran % (42.2 - 75.2 %) 81.6 H Lymphocytes % (20.5 - 51.1 %) 8.7 L Monocytes % (1.7 - 9.3 %) 7.6 Eosinophils % (0 - 5 %) 1.6 Basophils % (0.0 - 2.0 %) 0.5 Absolute Granulocytes (1.4 - 6.5 /CUMM) 4.1 Absolute Lymphocytes (1.2 - 3.4 /CUMM) 0.4 L Absolute Monocytes (0.10 - 0.60 /CUMM) 0.4 Absolute Eosinophils (0.0 - 0.7 /CUMM) 0.1 Absolute Basophils (0.0 - 0.2 /CUMM) 0 10/09 1848 Chemistry Sodium (137 - 145 mmol/L) 129 L Potassium (3.5 - 5.1 mmol/L) 5.4 H Chloride (98 - 107 mmol/L) 95 L Carbon Dioxide (22 - 30 mmol/L) 21 L Anion Gap (5 - 16) 13 BUN (9 - 20 mg/dL) 44 H Creatinine (0.7 - 1.2 mg/dL) 1.5 H Estimated GFR (>60 ml/min) 46 L BUN/Creatinine Ratio (7 - 25 %) 29.3 H Glucose (65 - 99 mg/dL) 88 Serum Osmolality (285 - 295 MOSM/KG) 283 L Calcium (8.4 - 10.2 mg/dL) 9.2 Magnesium (1.6 - 2.3 mg/dL) 1.7 Total Bilirubin (0.2 - 1.3 mg/dL) 3.0 H AST (17 - 59 U/L) 42 ALT (21 - 72 U/L) 51 Alkaline Phosphatase (< 127 U/L) 127 H Troponin I (<0.11 ng/ml) < 0.01 Total Protein (6.3 - 8.2 g/dL) 6.5 Albumin (3.5 - 5.0 g/dL) 3.8 Globulin (1.9 - 4.2 gm/dL) 2.7 Albumin/Globulin Ratio (1.1 - 2.2 %) 1.4 Coagulation PT (9.4 - 12.5 SEC) 15.0 H INR (0.90 - 1.17) 1.37 H APTT (25 - 37 SEC) 31 D-Dimer High Sensitivty (0 - 243 ng/ml) 318 H Hematology CBC w Diff NO MAN DIFF REQ WBC (4.8 - 10.8 /CUMM) 6.5 RBC (4.70 - 6.10 /CUMM) 3.33 L Hgb (14.0 - 18.0 G/DL) 10.3 L Hct (42 - 52 %) 30.0 L MCV (80.0 - 94.0 FL) 90.3 MCH (27.0 - 31.0 PG) 30.9 MCHC (33.0 - 37.0 G/DL) 34.3 RDW (11.5 - 14.5 %) 19.0 H Plt Count (130 - 400 /CUMM) 97 L MPV (7.4 - 10.4 FL) 7.9 Gran % (42.2 - 75.2 %) 83.0 H Lymphocytes % (20.5 - 51.1 %) 6.0 L Monocytes % (1.7 - 9.3 %) 8.9 Eosinophils % (0 - 5 %) 1.6 Basophils % (0.0 - 2.0 %) 0.5 Absolute Granulocytes (1.4 - 6.5 /CUMM) 5.4 Absolute Lymphocytes (1.2 - 3.4 /CUMM) 0.4 L Absolute Monocytes (0.10 - 0.60 /CUMM) 0.6 Absolute Eosinophils (0.0 - 0.7 /CUMM) 0.1 Absolute Basophils (0.0 - 0.2 /CUMM) 0 Diagnostic Data EKG Results Atrial fibrillation right axis deviation PVCs CXR Results IMPRESSION: Although there has been an interval improvement in the consolidation identified on the prior study, there are still patchy opacities of the right lower lung also with a small pleural effusion and vascular congestion. The findings are most suggestive of congestive heart failure exacerbation. A superimposed infectious or neoplastic process is not excluded and followup to resolution is recommended. Assessment/Plan Assessment/Plan 1. Coronary artery disease by history status post coronary bypass surgery stable. He has ruled out for myocardial infarction 2. Status post pacemaker 3. Permanent atrial fibrillation on Coumadin with controlled ventricular response 4. Acute on chronic diastolic heart failure causing his symptoms of shortness of breath and near syncope 5. Status post bioprosthetic mitral and aortic valves with moderate mitral stenosis on a recent echocardiogram 6. Hypertension now with borderline hypotension 7. Dyslipidemia Recommendations 1. I would continue to diurese monitoring his renal function closely 2. Would obtain an echocardiogram to reassess his overall LV function along with assessing his bioprosthetic valves 3. We will have his pacemaker interrogated 4. Agree with not reinstituting Aldactone at present given his borderline blood pressure 5. Continue Coumadin for stroke prevention and atrial fibrillation Thank you for allowing [facility] to participate in the care of your patient. Consult Acknowledgment - Thank you for your consult request.
[2017-10-10 10:42] VITALS: BP 96/68
[2017-10-10 12:28] VITALS: BP 98/68
--- NOTE | 2017-10-10 12:35 | ULTRASOUND REPORT ---
EXAMINATION: US TRIPLEX OF LOWER EXTREMITIES, BILATERAL CLINICAL INFORMATION: Bilateral lower extremity swelling with edema and skin changes COMPARISON: None TECHNIQUE: Color-flow triplex imaging with spectral analysis and compression Doppler were performed on the lower extremities. FINDINGS: Respiratory variation, normal compression and augmented flow are noted throughout the lower extremities. The visualized common femoral vein, superficial femoral vein, profunda femoral vein, popliteal vein and midcalf peroneal and posterior tibial venous segments show no evidence of deep venous thrombosis. There is no Mancera's cyst. IMPRESSION: No evidence of deep venous thrombosis involving the bilateral lower extremities.
[2017-10-10 13:55] VITALS: BP 102/86
[2017-10-11 06:00] VITALS: BP 100/62
--- NOTE | 2017-10-11 07:09 | PN- Housestaff ---
Lulú Valera 10/11/17 0709: Subjective Follow-up For: CHF exacerbation Complaints: no complaints Tele-Events Since Last Visit: NSR. V tach: 10 beats run at 22:20. He was asymptomatic and vitals were stable. Subjective: Pt was seen and examined lying comfortably in bed this morning. No complaints, no acute events. Review of Systems Constitutional: Reports: see HPI. Objective Last 24 Hrs of Vital Signs/I&O Vital Signs Date Time Temp Pulse Resp B/P B/P Pulse O2 O2 Flow FiO2 Mean Ox Delivery Rate 10/11 2118 56 110/56 10/11 1850 94 Room Air 10/11 1436 98.2 86 18 118/74 95 Nasal Cannula 10/11 1019 85 108/60 10/11 1015 85 108/60 10/11 0857 90 Room Air Room Air 10/11 0800 94 Nasal 2.0L Cannula 10/11 0620 94 Nasal 2.0L Cannula 10/11 0600 98.0 77 20 100/62 94 10/10 2258 98.5 20 Intake & Output 10/11 1600 10/11 0800 10/11 0000 Intake Total 25 240 Output Total 700 550 700 Balance -700 -525 -460 Intake, Oral 25 240 Number 1 Bowel Movements Output, Urine 700 550 700 Patient 185 lb Weight Weight Bed scale Measurement Method Physical Exam General Appearance: Alert, Oriented X3, Cooperative, No Acute Distress Skin: No Rashes, No Breakdown, Large echhymoses on mid and lower back and left arm and forerarm Skin Temp/Moisture Exam: Cool/Dry Sepsis Skin Exam (color): Normal for Ethnicity HEENT: Atraumatic, Mucous Membr. moist/pink Neck: Supple Cardiovascular: Regular Rate, Normal S1, Normal S2, No Murmurs Lungs: Normal Air Movement, b/l crackles at the lung bases Abdomen: Normal Bowel Sounds, Soft, No Tenderness, No Hepatospenomegaly Neurological: Normal Speech, Strength at 5/5 X4 Ext, Normal Tone, Sensation Intact Extremities: No Clubbing, No Cyanosis, b/l pitting edema Assessment/Plan Assessment: 76-year-old man with a significant past medical history of coronary vascular disease including A. fib on coumadin, CABG, hypertension, hyperlipidemia, mitral and aortic valve repair, pacemaker, fall 6 weeks ago s/p kyphoplasty, who was brought in by ambulance due to dizziness, presyncope, probably caused by acute on chronic heart failure. Vitals: Afebrile, sating well on RA. BP 110/70 this am Problem list: -Presyncope & SOB- Acute on chronic diastolic heart failure -CAD s/p CABG -Status post pacemaker -Permanent atrial fibrillation on Coumadin -Status post bioprosthetic mitral and aortic valves with moderate mitral stenosis on a recent echocardiogram -Hypertension -Dyslipidemia PLAN: #acute on chronic CHF: * obtain CXR tomorrow * cardiac monitring on tele floor * Monitor daily weights/ I and O #Hyperkalemia/Hyponatremia/DONATO: * monitir bep * Monitor BUN/Cr ratio which was 22.5 #HTN: * BP is borderline but stable * Nicko. Lasix 40 mg IV bid, metoprolol 25 mg bid po * transition iv lasix to po tomorrow #Afib/coumadin/pacemaker: * Check INR and dose coumadin #Left arm wound: * Changing dressing everyday #PT eval: recs Home PT services upon discharge DVT PX: warfarin and alps Diet: heart healthy CHF Code: Full Problem List: 1. Pre-syncope 2. CHF exacerbation 3. Hyperkalemia 4. 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 Resting comfortably not in acute distress. Reports feeling better compared to presentation. Overnight on telemetry he had showed normal nonsustained ventricular tachycardia.. On examination he has no jugular venous distention. He has mild bibasilar crackles. Lower extremity edema is improving. Blood pressure remains borderline but stable. He was saturating 90% on room air at rest. We will continue diuresis with Lasix at current dose. If he remains stable tomorrow and chest x-ray showing improvement will be transitioned to oral diuretics on discharge tomorrow. Per cardiology evaluation patient has intermittent secondary to normal pacemaker check. continue beta- jennie therapy.
[2017-10-11 07:49] LABS: ABSOLUTE BASOPHIL COUNT 0 /CUMM (0.0-0.2); ABSOLUTE EOSINOPHIL COUNT 0.1 /CUMM (0.0-0.7); ABSOLUTE LYMPH COUNT 0.5 /CUMM (1.2-3.4); ABSOLUTE MONOCYTE COUNT 0.5 /CUMM (0.10-0.60); BASOPHIL % 0.5 % (0.0-2.0); EOSINOPHIL % 1.6 % (0-5); GRANULOCYTE % 78.4 % (42.2-75.2); HEMATOCRIT 26.5 % (42-52); MEAN CORPUSCULAR HGB CONC 34.1 G/DL (33.0-37.0); MEAN PLATELET VOLUME 8.1 FL (7.4-10.4); PLATELET COUNT 83 /CUMM (130-400); RBC DISTRIBUTION WIDTH 19.3 % (11.5-14.5); RED BLOOD CELL CT 2.92 /CUMM (4.70-6.10); WHITE BLOOD CELL COUNT 5.1 /CUMM (4.8-10.8)
[2017-10-11 08:22] LABS: PT 22.4 SEC (9.4-12.5)
--- NOTE | 2017-10-11 08:40 | ECHOCARDIOGRAM REPORT ---
KT DAVEY Age: 76 : 1940 Gender: M Exam Date: 10/10/2017 19:24 Exam Location: 1 [address] Ht (in): 67 Wt (lb): 181 BSA: 1.99 BP: 98 / 68 Ordering Physician: Salvador Green MD Referring Physician: Natan Moreno MD Technologist: Francy Flor [facility] Room Number: 176 Indications: Heart failure Rhythm: Other Technical Quality: fair FINDINGS Left Ventricle Normal size left ventricle. Left ventricular wall thickness mildly increased. Normal left ventricular ejection fraction estimated at 60-65%. Right Ventricle Mild right ventricular dilatation. Normal right ventricular global systolic function. Right Atrium Mild to moderate right atrial dilatation. Left Atrium Severe left atrial dilatation. Mitral Valve Severe mitral annular calcification. Moderate mitral stenosis. Mild- to-moderate mitral regurgitation. Aortic Valve Bioprosthetic aortic valve. Gradient recorded across the prosthetic aortic valve within the expected range. Tricuspid Valve Tricuspid valve is normal in structure and function. Moderate-to- severe tricuspid regurgitation. Right ventricular systolic pressure estimated to be elevated at 45 mmHg. Pulmonic Valve Pulmonic valve not well visualized, grossly normal. Pericardium No pericardial effusion. Great Vessels Mildly dilated proximal ascending aorta (tube). CONCLUSIONS Normal left ventricular systolic function with mild concentric hypertrophy. Enlarged right ventricle. Biatrial enlargement. Normally functioning Bioprosthetic Aortic valve. Moderate Mitral stenosis.Dilated Ascending Aorta. Pulmonary hypertension. Natan Moreno M.D. (Electronically Signed) Final Date: 11 October 2017 08:38 MEASUREMENTS (Male / Female) Normal Values 2D ECHO LV Diastolic Diameter PLAX 4.4 cm 4.2 - 5.9 / 3.9 - 5.3 cm LV Systolic Diameter PLAX 2.8 cm 2.1 - 4.0 cm LV Fractional Shortening PLAX 36.4 % 25 - 46 % LV Ejection Fraction 2D Teich 66.3 % IVS Diastolic Thickness 1.3 cm LVPW Diastolic Thickness 1.3 cm LV Relative Wall Thickness 0.6 RV Internal Dim ED PLAX 4.5 cm 1.9 - 3.8 cm LVOT Diameter 1.9 cm Aortic Root Diameter 3.3 cm LA Systolic Diameter LX 6.2 cm 3.0 - 4.0 / 2.7 - 3.8 cm LA Volume 91.0 cm 18 - 58 / 22 - 52 cm Ascending Aorta Diameter 3.9 cm DOPPLER AV Peak Velocity 230.0 cm/s AV Peak Gradient 21.2 mmHg AV Mean Velocity 153.0 cm/s AV Mean Gradient 11.0 mmHg AV Velocity Time Integral 46.2 cm LVOT Peak Velocity 230.0 cm/s LVOT Peak Gradient 21.2 mmHg LVOT Mean Velocity 173.0 cm/s LVOT Mean Gradient 13.0 mmHg LVOT Velocity Time Integral 47.7 cm LVOT Stroke Volume 135.2 cm AV Area Cont Eq vti 2.9 cm AV Area Cont Eq pk 2.8 cm MV Peak Velocity 247.5 cm/s MV Peak Gradient 24.5 mmHg MV Mean Velocity 148.0 cm/s MV Mean Gradient 11.0 mmHg Mitral E Point Velocity 200.0 cm/s MV PHT Velocity 249.5 cm/s MV Deceleration Dale 506.0 cm/s MV Pressure Half Time 147.9 ms MV Area PHT 1.5 cm MV Deceleration Time 504.0 ms TR Peak Velocity 296.0 cm/s TR Peak Gradient 35.0 mmHg Right Atrial Pressure 5.0 mmHg Pulmonary Artery Systolic Pressure 40.0 mmHg Right Ventricular Systolic Pressure 40.0 mmHg PV Peak Velocity 178.0 cm/s PV Peak Gradient 12.7 mmHg PV Mean Velocity 102.0 cm/s PV Mean Gradient 5.0 mmHg PV Velocity Time Integral 34.5 cm LV E' Lateral Velocity 9.9 cm/s Mitral E to LV E' Lateral Ratio 20.1 LV E' Septal Velocity 7.0 cm/s Mitral E to LV E' Septal Ratio 28.5
--- NOTE | 2017-10-11 08:44 | PN- Wound Care ---
Subjective Subjective: Patient feels well without complaint Objective Vital Signs and I&Os Vital Signs Result Date Time Pulse Ox 94 10/12 619 O2 Delivery Nasal Cannula 10/12 619 O2 Flow Rate 2.0L 10/12 619 B/P 100/62 10/11 06 Temp 98.0 10/11 06 Pulse 77 10/11 06 Resp 20 10/11 0600 Intake & Output 10/11 0000 10/10 1600 10/10 0800 Intake Total 240 805 Output Total 700 150 400 Balance -460 655 -400 Intake, IV 5 Intake, Oral 240 800 Number 1 Bowel Movements Output, Urine 700 150 400 Patient 185 lb Weight Weight Bed scale Measurement Method Exam the left arm shows the skin tear to have clean red base there's minimal drainage there is no periwound erythema or undermining. Impression/Plan Impression/Plan Impression/Plan: 76-year-old suffered traumatic wound to his left arm which appears improved after cleansing moist wound care with Xeroform. There is no evidence of cellulitis. Continue current wound care regimen
--- NOTE | 2017-10-11 11:30 | Patient Discharge Instructions ---
Discharge Instructions General Discharge Information You were seen/treated for: Presyncope, congestive heart failure exacerbation. Watch for these problems: Please visit your nearest emergency department if you have any of these: Chest pain, worsening shortness of breath, worsening swelling of the feet and legs, fever, chills, dizziness, weakness, falls, altered or loss of consciousness Special Instructions: -Please visit your primary care physician within 1 week after discharge -Please visit your senior it specialist within 1 week after discharge -Please visit your INR after discharge. - Please follow up with the CHF clinic after discharge. - You have to repeat your Blood work on 10/23/17. Diet Continue normal diet: Yes Recommended Diet: Heart Healthy Activity Activity Self Limited: Yes Acute Coronary Syndrome Inclusion Criteria At DC or during hospital stay patient has or had the following: ACS DIAGNOSIS No Discharge Core Measures Meds if any: Prescribed or Continued at Discharge Meds if any: NOT Prescribed or Continued at Discharge Congestive Heart Failure Inclusion Criteria At DC or during hospital stay patient has or had the following: CHF DIAGNOSIS Yes Discharge Core Measures Meds if any: Prescribed or Continued at Discharge Meds if any: NOT Prescribed or Continued at Discharge Cerebrovascular accident Inclusion Criteria At DC or during hospital stay patient has or had the following: CVA/TIA Diagnosis No Discharge Core Measures Meds if any: Prescribed or Continued at Discharge Meds if any: NOT Prescribed or Continued at Discharge Venous thromboembolism Inclusion Criteria VTE Diagnosis No VTE Type NONE VTE Confirmed by (Test) EXT BILATERAL VENOUS DOPP Discharge Core Measures - Per Current guidelines, there needs to be overlap - treatment for the first 5 days of Warfarin therapy. - If discharged on Warfarin prior to 5 days of - overlap therapy, the patient will need to be - assessed for post discharge needs including - *Post discharge parental anticoagulation - *Warfarin and/or parental anticoagulation education - *Follow up date to check INR post discharge At least 5 days overlap therapy as Inpatient No Meds if any: Prescribed or Continued at Discharge Note: Overlap Therapy is Warfarin and Anticoagulant Meds if any: NOT Prescribed or Continued at Discharge
--- NOTE | 2017-10-11 12:21 | PN- Cardiology ---
Subjective Subjective: Feeling better today. Ambulating with physical therapy and feeling well without exertional dyspnea. Still has some lower extremity edema. Denies chest pain. Objective Vital Signs and I&Os Vital Signs Date Time Temp Pulse Resp B/P B/P Pulse O2 O2 Flow FiO2 Mean Ox Delivery Rate 10/11 1019 85 108/60 10/11 1015 85 108/60 10/11 0857 90 Room Air Room Air 10/11 0620 94 Nasal 2.0L Cannula 10/11 06 98.0 77 20 100/62 94 10/10 2258 98.5 20 10/10 2043 94 110/70 10/10 2035 94 Room Air Room Air 10/10 1355 97.8 86 18 102/86 94 10/10 1228 83 98/68 Intake & Output 10/11 0000 10/10 0000 Intake Total 25 252 395 6050 Output Total 550 700 835 206 6675 Balance -525 -460 655 -400 -175 Intake, IV 5 1000 Intake, Oral 25 240 800 Number 1 Bowel Movements Output, Urine 550 700 461 557 2785 Patient 185 lb 184 lb Weight Weight Bed scale Bed scale Measurement Method Physical Exam: General: no apparent distress. Alert. Eyes: No obvious scleral icterus. HEENT: No jugular venous distention or abnormal jugular venous pulsations. Cardiovascular: Normal intensity S1/S2. Irregular. Respiratory: Mildly decreased air entry Abdomen: Soft, nontender with no guarding or rebound tenderness. Musculoskeletal: No clubbing or cyanosis noted; 1+ lower extremity edema Skin: warm, ecchymoses noted Neurologic: No gross focal deficits noted. Current Medications: Current Medications Sig/Ifeanyi Start time Last Medication Dose Route Stop Time Status Admin Acetaminophen 650 MG Q6P PRN 10/09 2129 AC PO Albuterol Sulfate 3 ML BID 10/10 2100 AC 10/11 INH 0856 Atorvastatin Calcium 80 MG 1700 10/10 170 AC 10/10 PO 1606 Ferrous Sulfate 325 MG BID 10/10 899 AC 10/11 PO 1015 Furosemide 40 MG BID 10/09 2130 AC 10/11 IV 1014 Linaclotide 145 MCG DAILY 10/10 899 AC 10/11 PO 1015 Loratadine 10 MG DAILY 10/10 899 AC 10/11 PO 1015 Metoprolol Tartrate 25 MG BID 10/09 2199 AC 10/10 PO 204 Oxycodone/ 1 TAB ONCE ONE 10/11 013 DC 10/11 Acetaminophen PO 10/11 0131 0145 Paroxetine HCl 10 MG DAILY 10/10 09 AC 10/11 PO 1015 Tamsulosin HCl 0.4 MG DAILY 10/10 09 AC PO Warfarin Sodium 5 MG 1700 10/11 1700 AC PO Warfarin Sodium 5 MG 17010/10 1700 DC 10/10 PO 10/10 2359 1606 Results Last 48 Hrs of Labs/Mics: Laboratory Tests 10/11/17 0615: Anion Gap 11, Estimated GFR 59 L, BUN/Creatinine Ratio 22.5, PT 22.4 H, INR 2.04 H, CBC w Diff NO MAN DIFF REQ, RBC 2.92 L, MCV 91.0, MCH 31.0, MCHC 34.1, RDW 19.3 H, MPV 8.1, Gran % 78.4 H, Lymphocytes % 10.3 L, Monocytes % 9.2, Eosinophils % 1.6, Basophils % 0.5, Absolute Granulocytes 4.0, Absolute Lymphocytes 0.5 L, Absolute Monocytes 0.5, Absolute Eosinophils 0.1, Absolute Basophils 0 10/10/17 0610: Anion Gap 11, Estimated GFR 59 L, BUN/Creatinine Ratio 30.8 H, Magnesium 1.9, Troponin I < 0.01, PT 17.3 H, INR 1.58 H, CBC w Diff NO MAN DIFF REQ, RBC 2.91 L, MCV 90.1, MCH 30.8, MCHC 34.2, RDW 19.1 H, MPV 8.5, Gran % 81.6 H, Lymphocytes % 8.7 L, Monocytes % 7.6, Eosinophils % 1.6, Basophils % 0.5, Absolute Granulocytes 4.1, Absolute Lymphocytes 0.4 L, Absolute Monocytes 0.4, Absolute Eosinophils 0.1, Absolute Basophils 0 10/10/17 0025: Troponin I < 0.01 10/09/17 1848: Ftp-Y-Hdofkxastjl Pept 1240 H 10/09/17 1848: Anion Gap 13, Estimated GFR 46 L, BUN/Creatinine Ratio 29.3 H, Glucose 88, Serum Osmolality 283 L, Calcium 9.2, Magnesium 1.7, Total Bilirubin 3.0 H, AST 42, ALT 51, Alkaline Phosphatase 127 H, Troponin I < 0.01, Total Protein 6.5, Albumin 3.8, Globulin 2.7, Albumin/Globulin Ratio 1.4, PT 15.0 H, INR 1.37 H, APTT 31, D-Dimer High Sensitivty 318 H, CBC w Diff NO MAN DIFF REQ, RBC 3.33 L , MCV 90.3, MCH 30.9, MCHC 34.3, RDW 19.0 H, MPV 7.9, Gran % 83.0 H, Lymphocytes % 6.0 L, Monocytes % 8.9, Eosinophils % 1.6, Basophils % 0.5, Absolute Granulocytes 5.4, Absolute Lymphocytes 0.4 L, Absolute Monocytes 0.6, Absolute Eosinophils 0.1, Absolute Basophils 0 Recent Imaging Studies: Telemetry tracings are personally reviewed and show atrial fibrillation with occasional PVCs Echocardiogram Normal left ventricular systolic function with mild concentric hypertrophy. Enlarged right ventricle. Biatrial enlargement. Normally functioning Bioprosthetic Aortic valve. Moderate Mitral stenosis.Dilated Ascending Aorta. Pulmonary hypertension. Natan Moreno M.D. (Electronically Signed) Final Date: 11 October 2017 08:38 Assessment/Plan Assessment/Plan 1. Coronary artery disease by history status post coronary bypass surgery stable. He has ruled out for myocardial infarction 2. Status post pacemaker 3. Permanent atrial fibrillation on Coumadin with controlled ventricular response 4. Acute on chronic diastolic heart failure causing his symptoms of shortness of breath and near syncope 5. Status post bioprosthetic mitral and aortic valves with moderate mitral stenosis on a recent echocardiogram 6. Hypertension now with borderline hypotension 7. Dyslipidemia Patient feels he is improving; blood pressure remains borderline but stable. Echocardiogram as above with no new left ventricular dysfunction. Can continue on IV Lasix. INR remains therapeutic. He is currently afebrile. Recommend repeating his chest x-ray tomorrow. Continue on the beta-jennie as blood pressure tolerates given some intermittent tachyarrhythmia on pacemaker check. Azael Faith MD [facility] Continue telemetry? Yes
[2017-10-11 14:36] VITALS: BP 118/74
[2017-10-11 22:50] VITALS: BP 110/76
[2017-10-12 06:30] VITALS: BP 102/64
--- NOTE | 2017-10-12 07:10 | PN- Housestaff ---
Lulú Valera 10/12/17 0709: Subjective Follow-up For: CHF exacerbation Complaints: no complaints Tele-Events Since Last Visit: Sinus pacing. Martha pizarro. PVCs/couplets. Heart rate 78-87 Review of Systems Constitutional: Reports: see HPI. Objective Last 24 Hrs of Vital Signs/I&O Vital Signs Date Time Temp Pulse Resp B/P B/P Pulse O2 O2 Flow FiO2 Mean Ox Delivery Rate 10/12 2117 107 120/70 10/12 2117 107 120/70 10/12 1849 96 Room Air Room Air 10/12 1600 Room Air 10/12 1332 98.3 117 18 100/70 94 Room Air 10/12 1055 95 Room Air 10/12 0831 106 96/60 10/12 0630 99.4 87 18 102/64 90 10/11 2250 98.2 117 16 110/76 91 Room Air Intake & Output 10/12 1600 10/12 0800 10/12 0000 Intake Total 650 220 440 Output Total 900 250 Balance 650 -680 190 Intake, Oral 650 220 440 Number 1 Bowel Movements Output, Urine 900 250 Patient 192 lb Weight Physical Exam General Appearance: Alert, Oriented X3, Cooperative, No Acute Distress Skin: No Breakdown, large ecchymoses on back and left arm Skin Temp/Moisture Exam: Cool/Dry HEENT: Atraumatic Neck: Supple Cardiovascular: Regular Rate, Normal S1, Normal S2, No Murmurs Lungs: Normal Air Movement, b/l ronchi Abdomen: Normal Bowel Sounds, Soft, No Tenderness, No Hepatospenomegaly Neurological: Normal Speech, Strength at 5/5 X4 Ext, Normal Tone, Sensation Intact Extremities: No Clubbing, No Cyanosis, b/l pedal pitting edema Assessment/Plan Assessment: 76-year-old man with a significant past medical history of coronary vascular disease including A. fib on coumadin, CABG, hypertension, hyperlipidemia, mitral and aortic valve repair, pacemaker, fall 6 weeks ago s/p kyphoplasty, who was brought in by ambulance due to dizziness, presyncope, probably caused by acute on chronic heart failure. Vitals: Afebrile, sating well on RA. BP 110/70 this am Problem list: -Presyncope & SOB- Acute on chronic diastolic heart failure -CAD s/p CABG -Status post pacemaker -Permanent atrial fibrillation on Coumadin -Status post bioprosthetic mitral and aortic valves with moderate mitral stenosis on a recent echocardiogram -Hypertension -Dyslipidemia PLAN: #acute on chronic CHF: * Repeat chest x-ray today * cardiac monitring on tele floor * Monitor daily weights/ I and O * We change his Lasix from IV to per oral 60 mg in the a.m. and 14 p.m. * Continue metoprolol 50 mg per oral twice daily #Hyperkalemia/Hyponatremia/DONATO: * monitir bep * Monitor BUN/Cr ratio #HTN: * BP is borderline but stable * Nicko. Lasix 40 mg IV bid, metoprolol 25 mg bid po * transition iv lasix to po tomorrow #Afib/coumadin/pacemaker: * Check INR and dose coumadin. His INR was 2.13 today so we dosed his warfarin. #Left arm wound: * Changing dressing everyday #PT eval: Will be repeated today #Gout: * Continue allopurinol. Check serum uric acid today. keep an eye on left foot. Give steroids per oral if gout acts up. DVT PX: warfarin and alps Diet: heart healthy CHF Code: Full Problem List: 1. Pre-syncope 2. CHF exacerbation 3. Hyperkalemia 4. Hyponatremia Pain Ratin Pain Location: None Pain Goal: Remain pain free Pain Plan: Follow pain pathway Tomorrow's Labs & Rationales: yvette vasquez Kanwardeep 10/12/17 1327: Attending MD Review Statement Attending Statement Attending MD Statement: examined this patient, discuss w/resident/PA/PHYSICIAN ASST, agreed w/resident/PA/PHYSICIAN ASST, reviewed EMR data (avail), discussed with nursing, discussed with case mgmt Attending Assessment/Plan: 76-year-old man with a significant past medical history of coronary vascular disease including A. 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 Acute on chronic heart failure. swithed to po lasix 60mg in am and 40mg in pm. f /u on cardio recommendations. His metoprolol was increased to 50mg po bid yesterday. Gout- pt feels some pain in left foot. His allopurinol was held at admission for unclear reason. will restart it and if foot pain gets worse then will start on po prednisone short course. willl repeat uric acid level. d/w pt the care plan.
[2017-10-12 08:18] LABS: ABSOLUTE BASOPHIL COUNT 0 /CUMM (0.0-0.2); ABSOLUTE EOSINOPHIL COUNT 0.1 /CUMM (0.0-0.7); ABSOLUTE LYMPH COUNT 0.5 /CUMM (1.2-3.4); ABSOLUTE MONOCYTE COUNT 0.5 /CUMM (0.10-0.60); BASOPHIL % 0.5 % (0.0-2.0); GRANULOCYTE % 78.9 % (42.2-75.2); HEMATOCRIT 27.7 % (42-52); MEAN CORPUSCULAR HGB 31.5 PG (27.0-31.0); MEAN CORPUSCULAR HGB CONC 34.8 G/DL (33.0-37.0); MEAN CORPUSCULAR VOLUME 90.7 FL (80.0-94.0); MEAN PLATELET VOLUME 8.4 FL (7.4-10.4); RBC DISTRIBUTION WIDTH 19.5 % (11.5-14.5); RED BLOOD CELL CT 3.05 /CUMM (4.70-6.10); WHITE BLOOD CELL COUNT 5.1 /CUMM (4.8-10.8)
[2017-10-12 08:22] LABS: PT 23.4 SEC (9.4-12.5)
--- NOTE | 2017-10-12 09:32 | PN- Cardiology ---
Subjective Subjective: Telemetry reveals atrial fibrillation with somewhat rapid rate at about 100. Objective Vital Signs and I&Os Vital Signs Date Time Temp Pulse Resp B/P B/P Pulse O2 O2 Flow FiO2 Mean Ox Delivery Rate 10/12 0831 106 96/60 10/12 0630 99.4 87 18 102/64 90 10/11 2250 98.2 117 16 110/76 91 Room Air 10/11 2118 56 110/56 10/11 1850 94 Room Air 10/11 1436 98.2 86 18 118/74 95 Nasal Cannula 10/11 1019 85 108/60 10/11 1015 85 108/60 Intake & Output 10/12 1600 10/12 0800 10/12 0000 10/11 1600 10/11 0800 10/11 0000 Intake Total 220 440 25 240 Output Total 900 250 700 550 700 Balance -680 190 -700 -525 -460 Intake, Oral 220 440 25 240 Number 1 Bowel Movements Output, Urine 900 250 700 550 700 Patient 192 lb 185 lb Weight Weight Bed scale Measurement Method Physical Exam: On general exam patient appeared comfortable laying in bed Head normocephalic atraumatic Eyes sclera anicteric conjunctiva showed mild pallor extraocular muscles were normal Neck minimal jugular venous distention no thyroid masses no palpable nodes Chest lungs were clear bilaterally Heart irregular rhythm with a grade 2/6 systolic murmur Abdomen slightly protuberant soft nontender no organomegaly extremities reveal chronic venous stasis with 1-2+ edema. Neurological no gross motor or sensory deficits Current Medications: Current Medications Sig/Ifeanyi Start time Last Medication Dose Route Stop Time Status Admin Acetaminophen 650 MG Q6P PRN 10/09 2129 AC PO Albuterol Sulfate 3 ML BID 10/10 2100 AC 10/12 INH 0829 Atorvastatin Calcium 80 MG 1700 10/10 1700 AC 10/11 PO 1545 Ferrous Sulfate 325 MG BID 10/10 09 AC 10/12 PO 0830 Furosemide 40 MG 1630 10/12 1630 AC PO Furosemide 60 MG 10/12 AC PO Furosemide 40 MG 7:30 AM, & 4:30 PM 10/12 899 DC 10/12 PO 0831 Furosemide 40 MG BID 10/09 213 DC 10/11 IV 2118 Linaclotide 145 MCG DAILY 10/10 899 AC 10/12 PO 0830 Loratadine 10 MG DAILY 10/10 899 AC 10/12 PO 0830 Metoprolol Tartrate 50 MG BID 10/12 2100 AC PO Metoprolol Tartrate 25 MG BID 10/09 2200 DC 10/11 PO 2118 Oxycodone/ 1 TAB ONCE ONE 10/11 1645 DC 10/11 Acetaminophen PO 10/11 1646 1640 Paroxetine HCl 10 MG DAILY 10/10 0900 AC 10/12 PO 0831 Potassium Chloride 40 MEQ ONCE ONE 10/11 1645 DC 10/11 PO 10/11 1646 1639 Tamsulosin HCl 0.4 MG AT BEDTIME 10/12 2100 AC PO Tamsulosin HCl 0.4 MG DAILY 10/10 0900 DC PO Warfarin Sodium 5 MG COUMADIN 1700 ONE 10/12 1700 AC PO 10/12 1701 Warfarin Sodium 5 MG 1700 10/11 1700 DC 10/11 PO 1547 Results Last 48 Hrs of Labs/Mics: Laboratory Tests 10/12/17 06: Anion Gap 10, Estimated GFR > 60, BUN/Creatinine Ratio 21.8, Magnesium 1.9, PT 23.4 H, INR 2.13 H, CBC w Diff Pending, WBC Pending, RBC Pending, Hgb Pending, Hct Pending, MCV Pending, MCH Pending, MCHC Pending, RDW Pending, Plt Count Pending, MPV Pending 10/11/17 0615: Anion Gap 11, Estimated GFR 59 L, BUN/Creatinine Ratio 22.5, Magnesium 2.0, PT 22.4 H, INR 2.04 H, CBC w Diff NO MAN DIFF REQ, RBC 2.92 L, MCV 91.0, MCH 31.0, MCHC 34.1, RDW 19.3 H, MPV 8.1, Gran % 78.4 H, Lymphocytes % 10.3 L, Monocytes % 9.2, Eosinophils % 1.6, Basophils % 0.5, Absolute Granulocytes 4.0, Absolute Lymphocytes 0.5 L, Absolute Monocytes 0.5, Absolute Eosinophils 0.1, Absolute Basophils 0 Assessment/Plan Assessment/Plan 1. Coronary artery disease by history status post coronary bypass surgery stable. He has ruled out for myocardial infarction 2. Status post pacemaker 3. Permanent atrial fibrillation on Coumadin with controlled ventricular response 4. Acute on chronic diastolic heart failure causing his symptoms of shortness of breath and near syncope 5. Status post bioprosthetic mitral and aortic valves with moderate mitral stenosis on a recent echocardiogram 6. Hypertension now with borderline hypotension 7. Dyslipidemia His congestive heart failure is improved. I have asked housestaff to increase metoprolol to 50 mg twice daily to decrease heart rate in presence of moderate mitral stenosis. Diuretics have been changed to oral regimen Lasix 60 a.m. 40 p.m. Add potassium and magnesium supplement. Continue to ambulate and keep INR between 2.0 and 3.0. Continue telemetry? Yes
[2017-10-12 10:37] LABS: PLATELET COUNT 95 /CUMM (130-400)
[2017-10-12 13:32] VITALS: BP 100/70
--- NOTE | 2017-10-12 14:39 | RADIOLOGY REPORT ---
EXAMINATION: XR CHEST CLINICAL INFORMATION: Shortness of breath. CHF. COMPARISON: Chest done on 10/09/2017. TECHNIQUE: 2 views, 3 images of the chest were obtained. FINDINGS: Pulmonary venous congestion is present. Nonspecific superimposed airspace disease is noted at right lower lung field. The cardiomediastinal silhouette is enlarged. There is a trace amount of right-sided pleural effusion and/or thickening present. Postop changes of sternotomy and CABG is noted with dual lead pacer wires are present, appear intact. Postsurgical changes are noted within the cervical spine. Compared to prior study, the pulmonary venous congestion appears stable. The airspace opacity however appears to have apparently progressed could be related to the technique. IMPRESSION: Persistent stable pulmonary venous congestion consistent with mild CHF. Nonspecific superimposed airspace disease at right lower lung, apparently progressed since 10/09/2017, could be related to the technique.
[2017-10-12 22:35] VITALS: BP 120/70
[2017-10-13 06:28] VITALS: BP 108/58
--- NOTE | 2017-10-13 07:12 | PN- Housestaff ---
Lulú Valera 10/13/17 0712: Subjective Follow-up For: CHF exacerbation Complaints: no complaints Tele-Events Since Last Visit: Martha pizarro heart rate 72-98 Subjective: Patient seen and examined lying comfortably in bed. He says that he had wheezing, and a low back pain overnight of intensity 7/10 and he could not sleep. He also says that his left foot pain possibly due to gout is better. Review of Systems Constitutional: Reports: see HPI. Objective Last 24 Hrs of Vital Signs/I&O Vital Signs Date Time Temp Pulse Resp B/P B/P Pulse O2 O2 Flow FiO2 Mean Ox Delivery Rate 10/13 1400 97.9 100 20 102/60 94 10/13 1049 104 96/62 10/13 0858 95 Room Air 10/13 0628 98.4 82 20 108/58 91 Room Air 10/12 2235 98.3 107 18 120/70 91 Room Air 10/12 2118 107 120/70 10/12 2118 107 120/70 Intake & Output 10/13 1600 10/13 0800 10/13 0000 Intake Total 500 440 220 Output Total 625 425 500 Balance -125 15 -280 Intake, Oral 500 440 220 Output, Urine 625 425 500 Patient 193 lb Weight Weight Bed scale Measurement Method Physical Exam General Appearance: Alert, Oriented X3, Cooperative, No Acute Distress Skin: No Rashes, No Breakdown, No Significant Lesion Skin Temp/Moisture Exam: Cool/Dry Sepsis Skin Exam (color): Normal for Ethnicity HEENT: Atraumatic, Mucous Membr. moist/pink Neck: Supple Cardiovascular: Regular Rate, Normal S1, Normal S2, No Murmurs Lungs: Normal Air Movement, b/l crackles and ronchi Abdomen: Normal Bowel Sounds, Soft, No Tenderness, No Hepatospenomegaly Neurological: Normal Speech, Normal Tone Extremities: No Clubbing, No Cyanosis, mild pedal edema Assessment/Plan Assessment: 76-year-old man with a significant past medical history of coronary vascular disease including A. juarez on coumadin, CABG, hypertension, hyperlipidemia, mitral and aortic valve repair, pacemaker, fall 6 weeks ago s/p kyphoplasty, who was brought in by ambulance due to dizziness, presyncope, probably caused by acute on chronic heart failure. Vitals: Afebrile, sating well on RA. BP 108/58 this am Problem list: -Acute on chronic diastolic heart failure -CAD s/p CABG -Status post pacemaker -Permanent atrial fibrillation on Coumadin -Status post bioprosthetic mitral and aortic valves with moderate mitral stenosis on a recent echocardiogram -Hypertension -Dyslipidemia PLAN: #acute on chronic CHF: * During the PT evaluation today, the patient desaturated to 80s on ambulation. This is very concerning as patient deteriorated from what he was yesterday. We reevaluated the patient, ordered a chest x-ray. And we will repeat a chest x- ray tomorrow morning * We will also check pulse ox on walking today again * Monitor daily weights/ I and O * continue Lasix per oral 60 mg in the a.m. and 14 p.m. * Continue metoprolol 50 mg per oral twice daily #Hyperkalemia/Hyponatremia/DONATO: * monitir bep * Monitor BUN/Cr ratio #Afib/coumadin/pacemaker: * Check INR and dose coumadin. His INR was 2.13 today so we dosed his warfarin. #Left arm wound: * Changing dressing everyday #Gout: * Continue allopurinol. Left foot pain was made much better from yesterday. Plan is to give steroids per oral if gout acts up. DVT PX: warfarin and alps Diet: heart healthy CHF Code: Full Problem List: 1. CHF exacerbation Pain Ratin Pain Location: None Pain Goal: Remain pain free Pain Plan: Follow pain pathway Tomorrow's Labs & Rationales: cbc, bep Talib Ware 10/13/17 1255: Attending MD Review Statement Attending Statement Attending MD Statement: examined this patient, discuss w/resident/PA/SURGICAL INSTRUMENT REPAIR SPECIALIST, agreed w/resident/PA/SURGICAL INSTRUMENT REPAIR SPECIALIST, reviewed EMR data (avail), discussed with nursing, discussed with case mgmt Attending Assessment/Plan: 76-year-old man with a significant past medical history of coronary vascular disease including A. 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 Acute on chronic heart failure. on po lasix 60mg in am and 40mg in pm. f/u on cardio recommendations. His metoprolol was increased to 50mg po bid on . cardio recommending cont po lasix and repeating cxr in am. hypoxia with ambulation. Gout- his foot pain is better today and his uric acid level is down in 8's . cont allopurinol Afib- inr therapeutic. d/w pt the care plan.
[2017-10-13 08:17] LABS: ABSOLUTE BASOPHIL COUNT 0 /CUMM (0.0-0.2); ABSOLUTE EOSINOPHIL COUNT 0.1 /CUMM (0.0-0.7); ABSOLUTE GRANULOCYTE CT 3.6 /CUMM (1.4-6.5); ABSOLUTE LYMPH COUNT 0.5 /CUMM (1.2-3.4); ABSOLUTE MONOCYTE COUNT 0.4 /CUMM (0.10-0.60); BASOPHIL % 0.6 % (0.0-2.0); EOSINOPHIL % 2.4 % (0-5); GRANULOCYTE % 77.2 % (42.2-75.2); HEMATOCRIT 26.6 % (42-52); MEAN CORPUSCULAR HGB 31.1 PG (27.0-31.0); MEAN CORPUSCULAR HGB CONC 34.6 G/DL (33.0-37.0); MEAN CORPUSCULAR VOLUME 89.9 FL (80.0-94.0); MEAN PLATELET VOLUME 8.2 FL (7.4-10.4); PLATELET COUNT 93 /CUMM (130-400); RBC DISTRIBUTION WIDTH 19.2 % (11.5-14.5); RED BLOOD CELL CT 2.95 /CUMM (4.70-6.10); WHITE BLOOD CELL COUNT 4.6 /CUMM (4.8-10.8)
[2017-10-13 08:39] LABS: PT 23.4 SEC (9.4-12.5)
[2017-10-13] MEDS ORDERED: METOPROLOL TART50 M1 PO (10:26)
--- NOTE | 2017-10-13 10:39 | Discharge Summary ---
Visit Information Visit Dates Admission Date: 10/09/17 Discharge Date: 10/20/2017 Hospital Course Course Attending Physician: Kristel Armstrong MDdavid Primary Care Physician: Jaswinder LIND,[facility] Hospital Course: The patient is a 76-year-old man with a medical history of coronary vascular disease including A. fib on coumadin, CABG, hypertension, hyperlipidemia, mitral and aortic valve repair, who was brought in by ambulance due to dizziness. Patient was admitted to Telemetry Floor for managment of following issues; Problem list: - Near syncope episode probably due to acute on chronic heart failure. - Possible developing pneumonia: which was ruled out - Acute renal failure - Hyperkalemia on admission, later Hypokalemia - Hyponatremia - Left forearm wound HOSPITAL COURSE: Pt was admitted to the telemetry floor for continuous cardiac monitoring. #acute on chronic CHF: * His daily weights/ I and O were monitored * He was started on LAsix 40 IV bid and metoprolol was increased to 50 mg po bid. Upon improvemnt of status, he was switched to oral Lasix and discharged home on lasix 80mg daily with metolazone 2.5 mg added every Tues,thurs and sat. Aldactone was continued on discharge( not given during hospital stay). * PT Consult was obtained and recommended discharging to [facility]. #Hypokalemia/Hyponatremia/DONATO: * Patient was initialy Hyerkalemic later because hypokalemic. Potassium levels were monitored and repleted accordingly. * He was sent home on Potassium 20 mEQ every Tues,thurs and Sat. * Cr. was normal at the time of discharge. #HTN: * His BP was continuously monitored. Blood pressure was borderline in his hospital stay. He denied any dizziness or other complaints. * Lasix and Metoprolol were continued. #Afib/coumadin/pacemaker: * INR was checked daily and coumadin dosed accordingly. * His pacemaker was interrogated and found to be functioning well. #Possible PNA: * Patient was initially started on Abx which were stopped afterwards after pneumonia was ruled out. #Left arm wound: * Pt had a wound from a few weeks ago before admission, which opened up when the pt had syncope before admission * wound care was consulted and dressings were changed everyday #Gout: * Serum uric acid was 8.5, we continued allopurinol. Allergies: Coded Allergies: NO KNOWN ALLERGIES (12/09/13) Significant Procedures: CXR October 09: FINDINGS: Significant interval improvement in the right lower lobe consolidation when compared with the prior study. Patchy right basilar opacity remains. The lungs are hypoinflated which limits evaluation. Central pulmonary vascular congestion is seen. No evidence of pneumothorax bilaterally. No definite focal consolidations involving the left lung. Small right pleural effusion. Cardiomegaly. Aortic valve replacement. Median sternotomy wires are intact. Mediastinal surgical clips. Right chest pacer with leads projecting over the right atrium and ventricle. No acute osseous abnormality. Vertebroplasty cement within L1. IMPRESSION: Although there has been an interval improvement in the consolidation identified on the prior study, there are still patchy opacities of the right lower lung also with a small pleural effusion and vascular congestion. The findings are most suggestive of congestive heart failure exacerbation. A superimposed infectious or neoplastic process is not excluded and followup to resolution is recommended. VENOUS DOPPLER STUDY October 10: Respiratory variation, normal compression and augmented flow are noted throughout the lower extremities. The visualized common femoral vein, superficial femoral vein, profunda femoral vein, popliteal vein and midcalf peroneal and posterior tibial venous segments show no evidence of deep venous thrombosis. There is no Mancera's cyst. IMPRESSION: No evidence of deep venous thrombosis involving the bilateral lower extremities. ECHO October 10: Normal left ventricular systolic function with mild concentric hypertrophy. EF 60-65%. Enlarged right ventricle. Biatrial enlargement. Normally functioning Bioprosthetic Aortic valve. Moderate Mitral stenosis.Dilated Ascending Aorta. Pulmonary hypertension. CXR October 12: Persistent stable pulmonary venous congestion consistent with mild CHF. Nonspecific superimposed airspace disease at right lower lung, apparently progressed since 10/09/2017, could be related to the technique. CXR October 13: Moderately enlarged cardiomediastinal silhouette is present with pulmonary venous congestion. Previously documented airspace opacity at right lower lung field shows improved aeration without resolution. No new focal airspace disease. There is no pleural effusion present. Dual-lead pacer wires appear intact. Postsurgical changes are noted in the cervical spine. Compared to prior study dated 10/13/2015, there is improved aeration noted at right lower lung field. No other significant change. IMPRESSION: Improved aeration at right lower lung field. Stable mild CHF. CXR October 14: 2-lead pacemaker with contiguous, intact leads, unchanged from prior study. Sternal wires and mediastinal vascular clips are again seen. Cervical fusion hardware overlies the lower cervical spine. Lung volumes remain low. Pulmonary vascularity remains prominent, and slightly indistinct. Small right pleural effusion. Persistent patchy right base airspace opacity. Degenerative changes of the shoulders and thoracic spine. Compression deformity with kyphoplasty material in a vertebral body at the thoracolumbar junction. IMPRESSION: Small right pleural effusion and mild interstitial pulmonary edema, remain consistent with congestive heart failure. Findings are similar to the prior study. CXR Oct 19: Patient is rotated into a left posterior oblique position. Again noted are the the dual-chamber cardiac pacing leads and surgical changes of prior coronary artery bypass grafting. Cardiomegaly. Atherosclerotic calcification of aorta. Pulmonary vessels remain prominent, but pulmonary vascular congestion appears improved compared to 10/14/2017. Currently, there is no overt interstitial edema. The pleural thickening and/or small right pleural effusion is unchanged. IMPRESSION: Cardiomegaly and apparent improvement of pulmonary vascular congestion compared to 10/14/2017. Persistent small right pleural effusion. Disposition Summary Disposition Principal Diagnosis: Acute on Chronic CHF Additional Diagnosis: DONATO A fib on coumadin, HTN Discharge Disposition: SNF Discharge Instructions General Discharge Information Code Status: Full Code Patient's Diet: Heart Healthy Patient's Activity: tolerated Follow-Up Instructions/Appts: Patient should follow-up with the CHF clinic. Patient should follow-up with his cardiology service in 1 week after discharge. Serum chemistry should be repeated on October 23, 2017. Medications at Discharge Discharge Medications: Stop taking the following medications: Metoprolol Tartrate (Metoprolol Tartrate) 25 MG TABLET ORAL TWICE DAILY Qty = 120 Torsemide (Torsemide) 20 MG TABLET ORAL DAILY Continue taking these medications: Loratadine (Claritin) 10 MG TABLET 1 Tablet ORAL DAILY Comments: Last Taken:10/20/17 Time: 9:00 AM Ferrous Sulfate (Ferrous Sulfate) 325 MG (65 MG IRON) TABLET 1 Tablet ORAL TWICE DAILY Comments: Last Taken:10/20/17 Time: 9:00 AM Warfarin Sodium (Coumadin) 5 MG TABLET 1 Tablet ORAL DAILY Comments: NOT GIVEN Tamsulosin HCl (Tamsulosin HCl) 0.4 MG CAP.ER.24H 1 Capsule ORAL DAILY Qty = 90 Comments: Last Taken:10/19/17 Time: 9:00 PM Spironolactone (Spironolactone) 25 MG TABLET 1 Tablet ORAL DAILY Qty = 30 Comments: NOT GIVEN Umeclidinium Brm/Vilanterol Tr (Anoro Ellipta 62.5-25 Mcg INH) 62.5 MCG-25 MCG/ ACTUATION BLST.W.DEV 1 PUFF Inhale through mouth DAILY Qty = 180 Comments: NOT GIVEN Paroxetine HCl (Paxil) 10 MG TABLET 1 Tablet ORAL DAILY Qty = 90 Comments: Last Taken:10/20/17 Time: 9:00 AM Linaclotide (Linzess) 145 MCG CAPSULE 1 Capsule ORAL DAILY Qty = 90 Comments: NOT GIVEN Rosuvastatin Calcium (Crestor) 20 MG TABLET 1 Tablet ORAL Every other day Qty = 45 Comments: LIPITOR 80 MG GIVEN WHILE IN HOSPITAL Last Taken:10/19/17 Time: 5:00 PM Acetaminophen (Tylenol) 325 MG TABLET 650 Milligram ORAL EVERY 8 HOURS as needed for PAIN SCALE 1-3 (MILD) Qty = 30 Comments: NOT GIVEN Allopurinol (Allopurinol) 100 MG TABLET 100 Milligram ORAL DAILY Qty = 30 Instructions: . Comments: Last Taken:10/20/17 Time: 9:00 AM Furosemide (Furosemide) 40 MG TABLET 2 Tablet ORAL DAILY Qty = 60 Comments: WAS GIVEN IV LASIX WHILE IN HOSPITAL Last Taken:10/20/17 Time: 8:30 AM Start taking the following new medications: Metolazone (Metolazone) 2.5 MG TABLET 1 Tablet ORAL MONDAY, MONDAY, MONDAY Qty = 30 No Refills Comments: Last Taken:10/19/17 Time: 8:45 AM Potassium Chloride (Klor-Con M20) 20 MEQ TAB.ER.PRT 1 Tablet ORAL MONDAY, MONDAY, MONDAY Qty = 30 No Refills Comments: Last Taken:10/20/17 Time: 9:00 AM Metoprolol Tartrate (Metoprolol Tartrate) 50 MG TABLET 50 Milligram ORAL TWICE DAILY Qty = 60 No Refills Comments: HELD 10/20/17 IN AM DUE TO BP 90/50 Last Taken:10/19/17 Time: 9:00 PM Copies To: Jaswinder LIND,Ady; Marcell LIND,Blade Attending MD Review Statement Documenting Attending: Stacie Armstrong MD Other Findings: Patient has diuresed appropriately after initiation of metolazone therapy. He has dropped 8 kg over the past few days. He is maintaining negative fluid balance. On physical examination today he is not requiring oxygen supplementation at rest although he does desaturate with exertion. He has adequate entry bilaterally with no significant added sounds in the bases. Peripheral edema has improved significantly with mild edema in the ankles residually. Case was discussed with the cardiology service. Recommendations are to discharge the patient on the following regimen. -Continue Lasix 80 mg orally daily. -Continue Aldactone 25 mg daily. -Begin metolazone 2.5 mg 3 times a week. -Supplementation with potassium 20 mEq 3 times a week on the days he receives metolazone. -Metoprolol dose has been increased to 50 mg twice a day. He he will be discharged to a assisted facility for short-term rehabilitation due to his physical deconditioning.
--- NOTE | 2017-10-13 11:36 | PN- Cardiology ---
Subjective Subjective: Doing well but still with hypoxia during ambulation. No associated chest pain. Objective Vital Signs and I&Os Vital Signs Date Time Temp Pulse Resp B/P B/P Pulse O2 O2 Flow FiO2 Mean Ox Delivery Rate 10/13 1049 104 96/62 10/13 0858 95 Room Air 10/13 0628 98.4 82 20 108/58 91 Room Air 10/12 2235 98.3 107 18 120/70 91 Room Air 10/12 2118 107 120/70 10/12 2118 107 120/70 10/12 1849 96 Room Air Room Air 10/12 1600 Room Air 10/12 1332 98.3 117 18 100/70 94 Room Air Intake & Output 10/13 1600 10/13 0800 10/13 0000 10/12 0800 10/12 0000 Intake Total 440 220 650 220 440 Output Total 425 500 900 250 Balance 15 -280 650 -680 190 Intake, Oral 440 220 650 220 440 Number 1 Bowel Movements Output, Urine 425 500 900 250 Patient 193 lb 192 lb Weight Weight Bed scale Measurement Method Physical Exam: General: no apparent distress. Alert. Eyes: No obvious scleral icterus. HEENT: No jugular venous distention or abnormal jugular venous pulsations. Cardiovascular: Normal intensity S1/S2. Irregular. Respiratory: Mildly decreased air entry Abdomen: Soft, nontender with no guarding or rebound tenderness. Musculoskeletal: No clubbing or cyanosis noted; 1+ lower extremity edema Skin: warm, ecchymoses noted Neurologic: No gross focal deficits noted. Current Medications: Current Medications Sig/Ifeanyi Start time Last Medication Dose Route Stop Time Status Admin Acetaminophen 650 MG Q6P PRN 10/09 2130 AC PO Albuterol Sulfate 3 ML Q4P PRN 10/13 1115 AC INH Albuterol Sulfate 3 ML BID 10/10 2100 DC 10/13 INH 0857 Allopurinol 100 MG DAILY 10/12 1230 AC 10/13 PO 0750 Atorvastatin Calcium 80 MG 1700 10/10 1700 AC 10/12 PO 1604 Ferrous Sulfate 325 MG BID 10/10 09 AC 10/13 PO 0750 Furosemide 40 MG .STK-MED ONE 10/12 2314 DC PO 10/12 2315 Furosemide 40 MG 1630 10/12 1630 AC 10/12 PO 1604 Furosemide 60 MG 0730 10/12 0925 AC 10/13 PO 0750 Linaclotide 145 MCG DAILY 10/10 09 AC 10/13 PO 0750 Loratadine 10 MG DAILY 10/10 09 AC 10/13 PO 0750 Magnesium Oxide 400 MG ONE ONE 10/13 1015 DC 10/13 PO 10/13 1016 1049 Metoprolol Tartrate 50 MG BID 10/12 2099 AC 10/12 PO 211 Oxycodone/ 1 TAB ONCE ONE 10/130 DC 10/13 Acetaminophen PO 10/131 045 Paroxetine HCl 10 MG DAILY 10/10 09 AC 10/13 PO 0750 Tamsulosin HCl 0.4 MG AT BEDTIME 10/12 2099 AC 10/12 PO 211 Warfarin Sodium 5 MG COUMADIN 1700 ONE 10/13 1700 AC PO 10/13 1701 Warfarin Sodium 5 MG COUMADIN 1700 ONE 10/12 1700 DC 10/12 PO 10/12 170 1604 Results Last 48 Hrs of Labs/Mics: Laboratory Tests 10/13/17 0605: Anion Gap 10, Estimated GFR 59 L, BUN/Creatinine Ratio 20.0, Magnesium 1.9, PT 23.4 H, INR 2.13 H, CBC w Diff NO MAN DIFF REQ, RBC 2.95 L, MCV 89.9, MCH 31.1 H, MCHC 34.6, RDW 19.2 H, MPV 8.2, Gran % 77.2 H, Lymphocytes % 10.1 L, Monocytes % 9.7 H, Eosinophils % 2.4, Basophils % 0.6, Absolute Granulocytes 3.6, Absolute Lymphocytes 0.5 L, Absolute Monocytes 0.4, Absolute Eosinophils 0.1, Absolute Basophils 0 10/12/17 1255: Uric Acid 8.5 10/12/17626: Anion Gap 10, Estimated GFR > 60, BUN/Creatinine Ratio 21.8, Magnesium 1.9, PT 23.4 H, INR 2.13 H, CBC w Diff NO MAN DIFF REQ, RBC 3.05 L, MCV 90.7, MCH 31.5 H, MCHC 34.8, RDW 19.5 H, MPV 8.4, Gran % 78.9 H, Lymphocytes % 9.5 L, Monocytes % 9.1, Eosinophils % 2.0, Basophils % 0.5, Absolute Granulocytes 4.0, Absolute Lymphocytes 0.5 L, Absolute Monocytes 0.5, Absolute Eosinophils 0.1, Absolute Basophils 0 Recent Imaging Studies: Telemetry tracings are personally reviewed and show atrial for ablation with controlled ventricular response rate Assessment/Plan Assessment/Plan 1. Coronary artery disease by history status post coronary bypass surgery stable. He has ruled out for myocardial infarction 2. Status post pacemaker 3. Permanent atrial fibrillation on Coumadin with controlled ventricular response 4. Acute on chronic diastolic heart failure causing his symptoms of shortness of breath and near syncope 5. Status post bioprosthetic mitral and aortic valves with moderate mitral stenosis on a recent echocardiogram 6. Hypertension now with borderline hypotension 7. Dyslipidemia Doing well but still with some hypoxia on ambulation. Continue on the oral diuretic regimen and repeat chest x-ray tomorrow. INR remains therapeutic. Continue on the beta-jennie as blood pressure tolerates. Azael Faith MD [facility] Continue telemetry? Yes
[2017-10-13 14:00] VITALS: BP 102/60
--- NOTE | 2017-10-13 14:54 | RADIOLOGY REPORT ---
EXAMINATION: XR CHEST CLINICAL INFORMATION: CHF exacerbation. COMPARISON: Chest done on 10/12/2017. TECHNIQUE: 2 views of the chest were obtained. FINDINGS: Moderately enlarged cardiomediastinal silhouette is present with pulmonary venous congestion. Previously documented airspace opacity at right lower lung field shows improved aeration without resolution. No new focal airspace disease. There is no pleural effusion present. Dual-lead pacer wires appear intact. Postsurgical changes are noted in the cervical spine. Compared to prior study dated 10/13/2015, there is improved aeration noted at right lower lung field. No other significant change. IMPRESSION: Improved aeration at right lower lung field. Stable mild CHF.
[2017-10-13 21:49] VITALS: BP 104/66
[2017-10-14 06:57] VITALS: BP 112/58
[2017-10-14 08:26] LABS: PT 23.6 SEC (9.4-12.5)
--- NOTE | 2017-10-14 10:31 | PN- Housestaff ---
See Addendum Subjective Follow-up For: Acute on chronic CHF exacerbation Heart failure with preserved ejection fraction Subjective: Patient seen resting comfortably in the bed. He was ready to be discharged in the day, but after desaturating on oxygen he is being kept here to medically optimize him for rehab. The patient is eager to leave, currently complaining of some shortness of breath and just feeling tired generally worse. Patient says difficult to get up out of the bed, and is unsure if the Lasix is helping him out. His son will come by later to discuss plan. Patient denies chest pain, dizziness, nausea/vomiting/abdominal pain. Review of Systems Constitutional: Denies: chills, fever, weakness. Cardiovascular: Reports: peripheral edema. Denies: chest pain, palpitations. Respiratory: Reports: cough, short of breath. Gastrointestinal: Denies: abdominal pain, nausea, vomiting. Objective Last 24 Hrs of Vital Signs/I&O Vital Signs Date Time Temp Pulse Resp B/P B/P Pulse O2 O2 Flow FiO2 Mean Ox Delivery Rate 10/14 0854 130/90 10/14 0657 98.7 76 18 112/58 92 Nasal Cannula 10/13 2148 98.7 92 18 104/66 92 Room Air 10/13 2126 Room Air 10/13 2039 98 104/66 10/13 2038 98 104/66 10/13 1400 97.9 100 20 102/60 94 10/13 1049 104 96/62 Intake & Output 10/14 1600 10/14 0800 10/14 0000 Intake Total 220 Output Total 350 1000 Balance -130 -1000 Intake, Oral 220 Number 1 Bowel Movements Output, Urine 350 1000 Patient 87.175 kg Weight Weight Bed scale Measurement Method Physical Exam General Appearance: Alert, Oriented X3, Cooperative, No Acute Distress HEENT: Atraumatic, PERRLA, EOMI, Mucous Membr. moist/pink Neck: Supple, No JVD, No thryomegaly Cardiovascular: Regular Rate, Normal S1, Normal S2, No Murmurs Lungs: Clear to Auscultation Abdomen: Normal Bowel Sounds, Soft, No Tenderness Neurological: Normal Speech Current Medications: Current Medications Sig/Ifeanyi Start time Last Medication Dose Route Stop Time Status Admin Acetaminophen 650 MG Q6P PRN 10/09 2130 AC PO Albuterol Sulfate 3 ML Q4P PRN 10/13 1115 AC INH Albuterol Sulfate 3 ML BID 10/10 2100 DC 10/13 INH 0857 Allopurinol 100 MG DAILY 10/12 1230 AC 10/14 PO 0853 Atorvastatin Calcium 80 MG 1700 10/10 1700 AC 10/13 PO 1604 Ferrous Sulfate 325 MG BID 10/10 0900 AC 10/14 PO 0852 Furosemide 40 MG 1630 10/12 1630 AC 10/13 PO 1605 Furosemide 60 MG 0730 10/12 0925 AC 10/14 PO 0852 Linaclotide 145 MCG DAILY 10/10 0900 AC 10/14 PO 0853 Loratadine 10 MG DAILY 10/10 0900 AC 10/14 PO 0852 Metoprolol Tartrate 50 MG BID 10/12 2100 AC 10/14 PO 0854 Oxycodone/ 1 TAB ONCE ONE 10/14 0745 DC 10/14 Acetaminophen PO 10/14 0746 0852 Oxycodone/ 1 TAB ONCE ONE 10/14 0145 DC 10/14 Acetaminophen PO 10/14 0146 0202 Paroxetine HCl 10 MG DAILY 10/10 09 AC 10/14 PO 0853 Patient Medication 1 ED ONE ONE 10/13 1430 DC 10/13 Teaching ED 10/13 1431 1444 Tamsulosin HCl 0.4 MG AT BEDTIME 10/12 2100 AC 10/13 PO 2038 Warfarin Sodium 5 MG COUMADIN 1700 ONE 10/13 1700 DC 10/13 PO 10/13 1701 1605 Last 24 Hrs of Lab/Manuel Results Last 24 Hrs of Labs/Mics: Laboratory Tests 10/14/17 0705: Anion Gap 9, Estimated GFR > 60, BUN/Creatinine Ratio 20.0, Magnesium 1.9, PT 23.6 H, INR 2.15 H Assessment/Plan Assessment: 76-year-old man with a significant past medical history of coronary vascular disease including A. fib on coumadin, CABG, hypertension, hyperlipidemia, mitral and aortic valve repair, pacemaker, fall 6 weeks ago s/p kyphoplasty, who was brought in by ambulance due to dizziness, presyncope, probably caused by acute on chronic heart failure. Chest x-ray showed improved aeration of the right lower lung field. Problem list: -Acute on chronic diastolic heart failure -CAD s/p CABG -Status post pacemaker -Permanent atrial fibrillation on Coumadin -Status post bioprosthetic mitral and aortic valves with moderate mitral stenosis on a recent echocardiogram -Hypertension -Dyslipidemia PLAN: * Dose Coumadin, today's INR 2.15 * Continue Lasix and metoprolol, monitor daily weights and ins and outs * Potassium this morning was 3.4, repleted 40 mEq p.o. * Continue allopurinol DVT PX: warfarin and alps Diet: heart healthy CHF Code: Full Problem List: 1. CHF exacerbation Pain Ratin Pain Location: none Pain Goal: Pain 4 or less Pain Plan: per pathway Tomorrow's Labs & Rationales: bep magnesium PT/INR
--- NOTE | 2017-10-14 12:12 | RADIOLOGY REPORT ---
EXAMINATION: XR CHEST CLINICAL INFORMATION: Congestive heart failure exacerbation. Shortness of breath. Desaturating. COMPARISON: 10/13/2017 and earlier TECHNIQUE: 2 views of the chest were obtained. FINDINGS: 2-lead pacemaker with contiguous, intact leads, unchanged from prior study. Sternal wires and mediastinal vascular clips are again seen. Cervical fusion hardware overlies the lower cervical spine. Lung volumes remain low. Pulmonary vascularity remains prominent, and slightly indistinct. Small right pleural effusion. Persistent patchy right base airspace opacity. Degenerative changes of the shoulders and thoracic spine. Compression deformity with kyphoplasty material in a vertebral body at the thoracolumbar junction. IMPRESSION: Small right pleural effusion and mild interstitial pulmonary edema, remain consistent with congestive heart failure. Findings are similar to the prior study.
[2017-10-14 14:37] VITALS: BP 100/50
[2017-10-14 22:32] VITALS: BP 98/54
[2017-10-15 06:57] VITALS: BP 102/50
--- NOTE | 2017-10-15 08:29 | PN- Housestaff ---
Lulú Valera 10/15/17 08: Subjective Follow-up For: CHF exacerbation Complaints: no complaints Tele-Events Since Last Visit: Martha pizarro heart rate 72-83 Subjective: Patient seen and examined lying comfortably in bed this morning. He complains of shortness of breath overnight. He got a bit upset by frequent visits of doctors and nurses in his room. No other complaints no acute events overnight Review of Systems Constitutional: Reports: see HPI. Objective Last 24 Hrs of Vital Signs/I&O Vital Signs Date Time Temp Pulse Resp B/P B/P Pulse O2 O2 Flow FiO2 Mean Ox Delivery Rate 10/15 2232 98.1 77 18 98/58 90 Nasal Cannula 10/159 Nasal 1.0L Cannula 10/15 2126 89 Room Air Room Air 10/15 2013 77 96/62 10/15 2013 77 96/62 10/15 1600 95 Room Air Room Air 10/15 1410 97.1 82 18 94/62 95 Nasal Cannula 10/15 1242 96 Nasal 1.5L Cannula 10/15 1019 120/80 10/15 0800 92 Nasal 1.5L Cannula 10/15 0657 97.6 80 18 102/50 94 Room Air Intake & Output 10/16 0800 10/16 0000 10/15 1600 Intake Total 600 Output Total 800 Balance -200 Intake, Oral 600 Number 1 Bowel Movements Output, Urine 800 Patient 200 lb Weight Physical Exam General Appearance: Alert, Oriented X3, Cooperative, No Acute Distress Skin: No Rashes, No Breakdown, No Significant Lesion Skin Temp/Moisture Exam: Cool/Dry HEENT: Atraumatic, Mucous Membr. moist/pink Neck: Supple Cardiovascular: Regular Rate, Normal S1, Normal S2, No Murmurs Assessment/Plan Assessment: 76-year-old man with a significant past medical history of coronary vascular disease including Martha pizarro on coumadin, CABG, hypertension, hyperlipidemia, mitral and aortic valve repair, pacemaker, fall 6 weeks ago s/p kyphoplasty, who was brought in by ambulance due to dizziness, presyncope, probably caused by acute on chronic heart failure. Chest x-ray showed improved aeration of the right lower lung field. Problem list: -Acute on chronic diastolic heart failure -CAD s/p CABG -Status post pacemaker -Permanent atrial fibrillation on Coumadin -Status post bioprosthetic mitral and aortic valves with moderate mitral stenosis on a recent echocardiogram -Hypertension -Dyslipidemia PLAN: * Dose Coumadin, today's INR 2.15 * Continue Lasix and metoprolol, monitor daily weights and ins and outs * Potassium this morning was 3.4, repleted 40 mEq p.o K dur. * Mag 2.0 * Continue allopurinol DVT PX: warfarin and alps Diet: heart healthy CHF Code: Full Problem List: 1. CHF exacerbation Pain Ratin Pain Location: none Pain Goal: Remain pain free Pain Plan: n.a Tomorrow's Labs & Rationales: cbc, bep Husam LIND,Amir 10/15/17 1019: Attending MD Review Statement Attending Statement Attending MD Statement: examined this patient, discuss w/resident/PA/TUBE LASER OPERATOR, agreed w/resident/PA/TUBE LASER OPERATOR, reviewed EMR data (avail), discussed with nursing Attending Assessment/Plan: Pt reports that he is still not back to his baseline, feels tired, wasn't able to ambualte yesterday still requiring O2 LUNGS: +bibasilar crackles BACK: +skin ecchymosis (old) A/P --cont diuretics, f/u cards recs --cont to titrate O2 as tolerated --f/u INR --PT eval --rest of the plan as per resident's note
[2017-10-15 08:45] LABS: PT 23.3 SEC (9.4-12.5)
--- NOTE | 2017-10-15 12:13 | PN- Cardiology ---
Subjective Subjective: Patient still reports intermittent shortness of breath. Not associated with chest pain. Objective Vital Signs and I&Os Vital Signs Date Time Temp Pulse Resp B/P B/P Pulse O2 O2 Flow FiO2 Mean Ox Delivery Rate 10/15 1019 120/80 10/15 0800 92 Nasal 1.5L Cannula 10/15 0657 97.6 80 18 102/50 94 Room Air 10/15 0000 94 Nasal 1.5L Cannula 10/14 2232 98.2 80 20 98/54 95 Nasal Cannula 10/14 2016 79 110/70 10/14 2016 79 110/70 10/14 1634 95 Nasal 1.5L Cannula 10/14 1600 92 Nasal 1.5L Cannula 10/14 1437 98.9 85 20 100/50 93 Nasal Cannula Intake & Output 10/15 1600 10/15 0800 10/15 0000 10/14 1600 10/14 0800 10/14 0000 Intake Total 120 650 220 Output Total 350 1300 311 833 9984 Balance -230 -1300 250 -130 -1000 Intake, Oral 120 650 220 Number 0 1 Bowel Movements Output, Urine 350 1300 [phone] Patient 195 lb 191 lb 192 lb Weight Weight Bed scale Bed scale Measurement Method Physical Exam: General: no apparent distress. Alert. Eyes: No obvious scleral icterus. HEENT: No jugular venous distention or abnormal jugular venous pulsations. Cardiovascular: Normal intensity S1/S2. Irregular. Respiratory: Mildly decreased air entry Abdomen: Soft, nontender with no guarding or rebound tenderness. Musculoskeletal: No clubbing or cyanosis noted; 1+ lower extremity edema Skin: warm, ecchymoses noted Neurologic: No gross focal deficits noted. Current Medications: Current Medications Sig/Ifeanyi Start time Last Medication Dose Route Stop Time Status Admin Acetaminophen 650 MG Q6P PRN 10/09 2130 AC PO Albuterol Sulfate 3 ML Q4P PRN 10/13 1115 AC 10/14 INH 1629 Allopurinol 100 MG DAILY 10/12 1230 AC 10/15 PO 1018 Atorvastatin Calcium 80 MG 1700 10/10 1700 AC 10/14 PO 1711 Ferrous Sulfate 325 MG BID 10/10 0900 AC 10/15 PO 1018 Furosemide 40 MG ONCE ONE 10/14 1630 DC 10/14 IV 10/14 1631 1711 Furosemide 40 MG 1630 10/12 1630 AC 10/13 PO 1605 Furosemide 60 MG 10/12 0925 AC 10/15 PO 1018 Linaclotide 145 MCG DAILY 10/10 899 AC 10/15 PO 1019 Loratadine 10 MG DAILY 10/10 899 AC 10/15 PO 1018 Metoprolol Tartrate 50 MG BID 10/12 2099 AC 10/15 PO 1019 Oxycodone/ 1 TAB Q6-PRN PRN 10/14 1245 AC Acetaminophen PO Paroxetine HCl 10 MG DAILY 10/10 899 AC 10/15 PO 1019 Potassium Chloride 40 MEQ ONCE ONE 10/15 0815 DC 10/15 PO 10/15 0916 1018 Tamsulosin HCl 0.4 MG AT BEDTIME 10/12 2099 AC 10/14 PO 2017 Warfarin Sodium 5 MG COUMADIN 1700 ONE 10/15 1700 AC PO 10/15 1701 Warfarin Sodium 5 MG COUMADIN 1700 ONE 10/14 1700 DC 10/14 PO 10/14 1701 1711 Results Last 48 Hrs of Labs/Mics: Laboratory Tests 10/15/17 06: Anion Gap 9, Estimated GFR > 60, BUN/Creatinine Ratio 21.8, Magnesium 2.0, PT 23.3 H, INR 2.12 H 10/14/17 07: Anion Gap 9, Estimated GFR > 60, BUN/Creatinine Ratio 20.0, Magnesium 1.9, PT 23.6 H, INR 2.15 H Recent Imaging Studies: Telemetry tracings are personally reviewed and show atrial fibrillation CXR from yesterday Small right pleural effusion and mild interstitial pulmonary edema, remain consistent with congestive heart failure. Findings are similar to the prior study. Assessment/Plan Assessment/Plan 1. Coronary artery disease by history status post coronary bypass surgery stable. He has ruled out for myocardial infarction 2. Status post pacemaker 3. Permanent atrial fibrillation on Coumadin with controlled ventricular response 4. Acute on chronic diastolic heart failure causing his symptoms of shortness of breath and near syncope 5. Status post bioprosthetic mitral and aortic valves with moderate mitral stenosis on a recent echocardiogram 6. Hypertension now with borderline hypotension 7. Dyslipidemia The patient continues to feel short of breath and chest x-ray from yesterday was not significantly improved. INR remains therapeutic. Heart rate remains well controlled. Recommend restarting the Lasix 40 IV twice daily. Continue to follow strict I's and O's and daily weights. Azael Faith MD [facility] Continue telemetry? Yes
[2017-10-15 14:10] VITALS: BP 94/62
[2017-10-15 22:32] VITALS: BP 98/58
[2017-10-16 05:45] VITALS: BP 98/78
--- NOTE | 2017-10-16 06:52 | PN- Housestaff ---
Lulú Valera 10/16/17 0652: Subjective Follow-up For: CHF exacerbation Complaints: wheeze overnight Tele-Events Since Last Visit: A fib. 76-79 HR Subjective: Pt seen and examined lying comfortably in bed this morning, in NAD. There is a bandage dressing on left forearm and elbow which was POA. He reports having wheeze last night. Also, his left foot (gouts) hurts intermittently "acts up". Pt reports walking to the bathroom with some SOB. No acute events overnight Review of Systems Constitutional: Reports: see HPI. Objective Last 24 Hrs of Vital Signs/I&O Vital Signs Date Time Temp Pulse Resp B/P B/P Pulse O2 O2 Flow FiO2 Mean Ox Delivery Rate 10/16 2234 98.1 80 18 98/60 92 Room Air 10/16 2010 104/68 10/16 1407 97.7 76 18 100/61 93 Room Air 10/16 1120 91 118/62 10/16 0819 86 96/60 10/16 0800 96 Room Air 10/16 0545 97.8 79 18 98/78 92 Intake & Output 10/16 1600 10/16 0800 10/16 0000 Intake Total 1000 50 50 Output Total 600 Balance 400 50 50 Intake, Oral 1000 50 50 Number 1 Bowel Movements Output, Urine 600 Patient 200 lb Weight Physical Exam General Appearance: Alert, Oriented X3, Cooperative, No Acute Distress Skin Temp/Moisture Exam: Cool/Dry Sepsis Skin Exam (color): Normal for Ethnicity HEENT: Atraumatic, Mucous Membr. moist/pink Neck: Supple Cardiovascular: Regular Rate, Normal S1, Normal S2 Lungs: Clear to Auscultation, Normal Air Movement Abdomen: Normal Bowel Sounds, Soft, No Tenderness Neurological: Normal Gait, Normal Speech, Strength at 5/5 X4 Ext, Normal Tone Assessment/Plan Assessment: 76-year-old man with a significant past medical history of coronary vascular disease including A. fib on coumadin, CABG, hypertension, hyperlipidemia, mitral and aortic valve repair, pacemaker, fall 6 weeks ago s/p kyphoplasty, who was brought in by ambulance due to dizziness, presyncope, probably caused by acute on chronic heart failure. Problem list: -Acute on chronic diastolic heart failure -CAD s/p CABG -Status post pacemaker -Permanent atrial fibrillation on Coumadin -Status post bioprosthetic mitral and aortic valves with moderate mitral stenosis on a recent echocardiogram -Hypertension -Dyslipidemia PLAN: * Dose Coumadin, today's INR 2.31 * Continue Lasix 40 mg IV, and metoprolol 50 po bid, monitor daily weights and ins and outs * K was low today 3.3 . So we repleted with K dur 40 Meq once. * Monitor K and Mag. Replete as necessary. * Continue allopurinol. If gout flares up, please consider steroids. DVT PX: warfarin and alps Diet: heart healthy CHF Code: Full Problem List: 1. CHF exacerbation Pain Ratin Pain Location: none Pain Goal: Remain pain free Pain Plan: n.a Tomorrow's Labs & Rationales: cbc, bep, inr Patti LIND,Stacie 10/16/17 1206: Attending MD Review Statement Attending Statement Attending MD Statement: examined this patient, discuss w/resident/PA/PREDATORY ANIMAL EXTERMINATOR, agreed w/resident/PA/PREDATORY ANIMAL EXTERMINATOR, reviewed EMR data (avail), discussed with nursing, discussed with case mgmt, amended to note Attending Assessment/Plan: Patient seen and examined. Sitting up in his chair not in acute distress. No issues overnight. No events on telemetry monitoring overnight. Denies shortness of breath at rest. Denies chest pain. He however reports dyspnea with minimal exertion. Currently frustrated about his slow response to therapy. Blood pressure remains borderline. His metoprolol was held on a few occasions due to his low pressure. Fortunately denies any dizziness or lightheadedness. On examination decreased breath sounds in lung bases bilaterally. Persistent pedal edema mostly around the ankles. Chest x-ray done 48 hours ago shows no significant improvement compared to prior with persistent right pleural effusion and mild pulmonary edema. Problems: 1. Acute and congestive heart failure. 2. Coronary artery disease. 3. Atrial fibrillation on Coumadin. 4. Status post pacemaker placement. 5. Status post bioprosthetic mitral and aortic valves with moderate mitral stenosis on a recent echocardiogram. 5. Hypotension 6. Chronic thrombocytopenia. Plan: -Case discussed with cardiology service. We will continue diuresis with IV Lasix 40 mg twice daily. We will continue current dose of metoprolol given that the patient has numerous episodes of tachyarrhythmia noted during his device interrogation in the outpatient setting. -Keep legs elevated while seated. Recommend compression stockings. -Pleural effusion is too small to be tapped at present. -Platelet count is stable. There is no indication for daily CBCs in this patient. -Supplement potassium orally. Will monitor serum chemistry closely given the aggressive diuresis is receiving.
[2017-10-16 08:08] LABS: ABSOLUTE BASOPHIL COUNT 0 /CUMM (0.0-0.2); ABSOLUTE EOSINOPHIL COUNT 0.2 /CUMM (0.0-0.7); ABSOLUTE LYMPH COUNT 0.5 /CUMM (1.2-3.4); ABSOLUTE MONOCYTE COUNT 0.3 /CUMM (0.10-0.60); BASOPHIL % 0.7 % (0.0-2.0); EOSINOPHIL % 4.7 % (0-5); GRANULOCYTE % 73.8 % (42.2-75.2); HEMATOCRIT 25.3 % (42-52); MEAN CORPUSCULAR HGB 30.5 PG (27.0-31.0); MEAN CORPUSCULAR HGB CONC 34.2 G/DL (33.0-37.0); MEAN CORPUSCULAR VOLUME 89.1 FL (80.0-94.0); MEAN PLATELET VOLUME 8.4 FL (7.4-10.4); PLATELET COUNT 115 /CUMM (130-400); RBC DISTRIBUTION WIDTH 19.1 % (11.5-14.5); RED BLOOD CELL CT 2.84 /CUMM (4.70-6.10)
[2017-10-16 14:07] VITALS: BP 100/61
[2017-10-16 14:53] LABS: PT 25.4 SEC (9.4-12.5)
--- NOTE | 2017-10-16 16:47 | PN- Cardiology ---
Subjective Subjective: Patient reports dyspnea is improved, denies dyspnea at rest. Patient reports some dyspnea on exertion, still with invading the hallway. Denies chest pain, palpitations, PND. Objective Vital Signs and I&Os Vital Signs Date Time Temp Pulse Resp B/P B/P Pulse O2 O2 Flow FiO2 Mean Ox Delivery Rate 10/16 1407 97.7 76 18 100/61 93 Room Air 10/16 1120 91 118/62 10/16 0819 86 96/60 10/16 0800 96 Room Air 10/16 0545 97.8 79 18 98/78 92 10/15 2232 98.1 77 18 98/58 90 Nasal Cannula 10/15 2138 Nasal 1.0L Cannula 10/15 2126 89 Room Air Room Air 10/15 2013 77 96/62 10/15 2013 77 96/62 Intake & Output 10/16 1600 10/16 0800 10/16 0000 10/15 1600 10/15 0800 10/15 0000 Intake Total 1000 50 50 600 120 Output Total 600 150 125 4648 Balance 400 50 50 -200 -230 -1300 Intake, Oral 1000 50 50 600 120 Number 1 1 Bowel Movements Output, Urine 600 [phone] Patient 90.747 kg 88.621 kg Weight Weight Bed scale Measurement Method Physical Exam: General: no apparent distress HEENT: NCAT, NO JVD Heart: s1s2, irregular rhythm Lungs: Decreased bibasilar breath sounds, scattered expiratory wheezes at the bases, no rales/rhonchi Abd: soft, nt Ext: Trace bilateral lower extremity edema Current Medications: Current Medications Sig/Ifeanyi Start time Last Medication Dose Route Stop Time Status Admin Acetaminophen 650 MG Q6P PRN 10/09 2130 AC PO Albuterol Sulfate 3 ML Q4P PRN 10/13 1115 AC 10/14 INH 1629 Allopurinol 100 MG DAILY 10/12 1230 AC 10/16 PO 1003 Atorvastatin Calcium 80 MG 1700 10/10 1700 AC 10/16 PO 1625 Ferrous Sulfate 325 MG BID 10/10 09 AC 10/16 PO 0815 Furosemide 40 MG 7:30 AM, & 4:30 PM 10/15 1630 AC 10/16 IV 1625 Linaclotide 145 MCG DAILY 10/10 09 AC 10/16 PO 0814 Loratadine 10 MG DAILY 10/10 09 AC 10/16 PO 0814 Metoprolol Tartrate 50 MG BID 10/12 2100 AC 10/16 PO 1120 Oxycodone/ 1 TAB Q6-PRN PRN 10/14 1245 AC 10/16 Acetaminophen PO 112 Paroxetine HCl 10 MG DAILY 10/10 0900 AC 10/16 PO 0815 Potassium Chloride 40 MEQ ONCE ONE 10/16 1700 CAN PO 10/16 1701 Potassium Chloride 40 MEQ ONCE ONE 10/16 1700 AC 10/16 PO 10/16 1701 1626 Potassium Chloride 60 MEQ ONCE ONE 10/16 1200 DC 10/16 PO 10/16 1201 1120 Potassium Chloride 60 MEQ ONCE ONE 10/16 0930 CAN PO 10/16 0931 Tamsulosin HCl 0.4 MG AT BEDTIME 10/12 2100 AC 10/15 PO 2014 Warfarin Sodium 5 MG COUMADIN 1700 ONE 10/16 1700 CAN PO 10/16 1701 Warfarin Sodium 5 MG COUMADIN 1700 ONE 10/16 1700 AC PO 10/16 1701 Warfarin Sodium 5 MG COUMADIN 1700 ONE 10/15 1700 DC 10/15 PO 10/15 1701 1601 Results Last 48 Hrs of Labs/Mics: Laboratory Tests 10/16/17 1425: PT 25.4 H, INR 2.31 H 10/16/17 0605: Anion Gap 11, Estimated GFR > 60, BUN/Creatinine Ratio 21.0, TSH 2.490, Free T4 1.53, Cortisol AM Sample 12.7, CBC w Diff NO MAN DIFF REQ, RBC 2.84 L, MCV 89.1 , MCH 30.5, MCHC 34.2, RDW 19.1 H, MPV 8.4, Gran % 73.8, Lymphocytes % 12.5 L, Monocytes % 8.3, Eosinophils % 4.7, Basophils % 0.7, Absolute Granulocytes 3.0, Absolute Lymphocytes 0.5 L, Absolute Monocytes 0.3, Absolute Eosinophils 0.2, Absolute Basophils 0 10/15/17 0615: Anion Gap 9, Estimated GFR > 60, BUN/Creatinine Ratio 21.8, Magnesium 2.0, PT 23.3 H, INR 2.12 H Recent Imaging Studies: Telemetry: Personally reviewed, atrial fibrillation with good rate control Assessment/Plan Assessment/Plan 1. Coronary artery disease by history status post coronary bypass surgery stable. He has ruled out for myocardial infarction 2. Status post pacemaker 3. Permanent atrial fibrillation on Coumadin with controlled ventricular response 4. Acute on chronic diastolic heart failure causing his symptoms of shortness of breath and near syncope 5. Status post bioprosthetic mitral and aortic valves with moderate mitral stenosis on a recent echocardiogram 6. Hypertension now with borderline hypotension 7. Dyslipidemia The patient does continue to have some dyspnea, however he feels improved from admission. Patient is borderline hypotensive however asymptomatic. Heart rate is well controlled. INR is therapeutic. Continue with statin, metoprolo. Continue with IV diuresis, trend electrolytes, renal function, I/O, daily weight. Continue telemetry? Yes
[2017-10-16 22:34] VITALS: BP 98/60
[2017-10-17 06:22] VITALS: BP 100/62
--- NOTE | 2017-10-17 07:29 | PN- Housestaff ---
AntoinemaryamSai 10/17/17 0729: Subjective Follow-up For: Exacerbation patient CHF Tele-Events Since Last Visit: Martha fib 76-85 Subjective: Patient lying in bed comfortably. Reports no issues overnight. Endorses that his shortness of breath is improving. Pt has stopped using his oxygen and seems to be maintaining saturation on room air, however reports that he desaturates with very slight exertion, such as sitting up and ambulating. Review of Systems Constitutional: Reports: see HPI. Objective Last 24 Hrs of Vital Signs/I&O Vital Signs Date Time Temp Pulse Resp B/P B/P Pulse O2 O2 Flow FiO2 Mean Ox Delivery Rate 10/17 1600 Room Air 10/17 1438 97.8 103 20 130/88 97 Room Air 10/17 1024 Room Air 1.0L 10/17 0914 88 92/68 10/17 0622 97.6 84 18 100/62 94 Room Air 10/16 2234 98.1 80 18 98/60 92 Room Air 10/16 2010 104/68 Intake & Output 10/17 1600 10/17 0800 10/17 0000 Intake Total 600 100 100 Output Total 638 218 9083 Balance -150 -200 -900 Intake, Oral 600 100 100 Number 1 Bowel Movements Output, Urine 184 277 4887 Patient 200 lb Weight Physical Exam General Appearance: Alert, Oriented X3, Cooperative, Mild Distress Skin Temp/Moisture Exam: Warm/Dry Sepsis Skin Exam (color): Normal for Ethnicity HEENT: Atraumatic, PERRLA, EOMI Neck: Supple Cardiovascular: Normal S1, Normal S2 Lungs: Bibasalar Crackles Abdomen: Soft, No Tenderness Neurological: Normal Speech Extremities: 1+ Edema B/L LE Current Medications: Current Medications Sig/Ifeanyi Start time Last Medication Dose Route Stop Time Status Admin Acetaminophen 650 MG Q6P PRN 10/09 2130 AC PO Albuterol Sulfate 3 ML Q4P PRN 10/13 1115 AC 10/14 INH 1629 Allopurinol 100 MG DAILY 10/12 1230 AC 10/17 PO 0756 Atorvastatin Calcium 80 MG 1700 10/10 1700 AC 10/17 PO 1626 Ferrous Sulfate 325 MG BID 10/10 09 AC 10/17 PO 0756 Furosemide 40 MG 7:30 AM, & 4:30 PM 10/15 1630 10/17 IV 1626 Linaclotide 145 MCG DAILY 10/10 0900 AC 10/17 PO 075 Loratadine 10 MG DAILY 10/10 0900 AC 10/17 PO 0756 Metolazone 2.5 MG DAILY 10/17 1130 AC 10/17 PO 1427 Metoprolol Tartrate 50 MG BID 10/12 2099 AC 10/16 PO 1120 Oxycodone/ 1 TAB Q6-PRN PRN 10/14 1245 AC 10/17 Acetaminophen PO 0358 Paroxetine HCl 10 MG DAILY 10/10 09 AC 10/17 PO 755 Tamsulosin HCl 0.4 MG AT BEDTIME 10/12 2099 AC 10/16 PO 2010 Warfarin Sodium 5 MG COUMADIN 1700 ONE 10/17 1700 DC 10/17 PO 10/17 1701 1626 Last 24 Hrs of Lab/Manuel Results Last 24 Hrs of Labs/Mics: Laboratory Tests 10/17/17 0607: Anion Gap 10, Estimated GFR > 60, BUN/Creatinine Ratio 19.0, PT 25.8 H, INR 2.35 H Assessment/Plan Assessment: 76-year-old man with a significant past medical history of coronary vascular disease including A. fib on coumadin, CABG, hypertension, hyperlipidemia, mitral and aortic valve repair, pacemaker, fall 6 weeks ago s/p kyphoplasty, who was brought in by ambulance due to dizziness, presyncope, probably caused by acute on chronic heart failure. 1. Permanent A. fib - Continue coumadin dosing - Monitor INR (today 2.35) 2. Volume overload due to CHF exacerabtion (bibasilar crackles, edema lower extremities, shortness of breath on minimal exertion) - Add metolazone - Continue IV Lasix 40 mg - Past 5 days patient had negative fluid balance of approx 3 L - Ambulate as tolerated - Follow recs per cardiology 3. Chronic conditions (hypertension, dyslipidemia, gout) - Monitor blood pressure - Continue metoprolol - Continue allopurinol Problem List: 1. CHF exacerbation Pain Ratin Pain Location: N/A Pain Goal: Remain pain free Pain Plan: N/A Tomorrow's Labs & Rationales: BEP, HAJA Armstrong MD,Stacie 10/17/17 1148: Attending Review Statement Attending Statement Attending MD Statement: examined this patient, discuss w/resident/PA/SALES MERCHANDISE ASSOCIATE, agreed w/resident/PA/SALES MERCHANDISE ASSOCIATE, reviewed EMR data (avail), discussed with nursing, discussed with case mgmt, amended to note Attending Assessment/Plan: Patient seen and examined. Resting comfortably not in acute distress. No issues overnight. Reports less shortness of breath with exertion today. He is maintaining saturation on room air but reported to desaturate with ambulation. On examination continues to have mild bibasilar crackles and lower extremity edema is unchanged despite use of compression stockings as well. Over the past 5 days has had a negative fluid balance of just over 3 L. He is with does not appear to have significantly improved. He is currently not responding as adequately to the current dose of Lasix 40 mg twice daily. Case was discussed with cardiology service. Recommend adding metolazone to his regimen. Patient was previously on this regimen in the past with better response. We will have to monitor his blood pressure closely as it continues to be labile. We are continue the metoprolol at the current dose as recommended by the cardiology service due to episodes of tachyarrhythmia on his device monitoring.
[2017-10-17 08:14] LABS: PT 25.8 SEC (9.4-12.5)
--- NOTE | 2017-10-17 10:42 | PN- Cardiology ---
See Addendum Subjective Subjective: Patient still complains of shortness of breath upon minimal exertion. He is also hypoxic. Review of Systems: Eyes no blurred or double vision Ears no deafness or ringing Nose and throat no recurrent sinusitis Lungs per history of present illness Heart per history of present illness Abdomen no nausea vomiting Musculoskeletal occasional muscle and joint pains Psych no anxiety or depression Neuro without recurrent headache or seizures Endocrine no heat or cold intolerance Objective Vital Signs and I&Os Vital Signs Date Time Temp Pulse Resp B/P B/P Pulse O2 O2 Flow FiO2 Mean Ox Delivery Rate 10/17 1024 Room Air 1.0L 10/17 0914 88 92/68 10/17 0622 97.6 84 18 100/62 94 Room Air 10/16 2234 98.1 80 18 98/60 92 Room Air 10/16 2010 104/68 10/16 1407 97.7 76 18 100/61 93 Room Air 10/16 1120 91 118/62 Intake & Output 10/17 1600 10/17 0800 10/17 0000 10/16 1600 10/16 0000 Intake Total 459 037 4530 50 50 Output Total 300 1000 600 Balance -200 -900 400 50 50 Intake, Oral 374 009 6826 50 50 Number 1 Bowel Movements Output, Urine 300 1000 600 Patient 200 lb 200 lb Weight Physical Exam: Patient is a well-developed well-nourished male appearing in no acute distress HEENT is unremarkable Neck is supple there is no JVD Lungs scattered rhonchi and wheezes bilaterally Heart irregular rhythm S1 and S2 are normal no murmurs gallops or rubs Abdomen bowel sounds positive Extremities trace edema bilaterally Current Medications: Current Medications Sig/Ifeanyi Start time Last Medication Dose Route Stop Time Status Admin Acetaminophen 650 MG Q6P PRN 10/09 2130 AC PO Albuterol Sulfate 3 ML Q4P PRN 10/13 1115 AC 10/14 INH 1629 Allopurinol 100 MG DAILY 10/12 1230 AC 10/17 PO 0756 Atorvastatin Calcium 80 MG 1700 10/10 1700 AC 10/16 PO 1625 Ferrous Sulfate 325 MG BID 10/10 09 AC 10/17 PO 075 Furosemide 40 MG 7:30 AM, & 4:30 PM 10/15 1630 AC 10/17 IV 0756 Linaclotide 145 MCG DAILY 10/10 09 AC 10/17 PO 075 Loratadine 10 MG DAILY 10/10 09 AC 10/17 PO 0756 Metoprolol Tartrate 50 MG BID 10/12 2100 AC 10/16 PO 1120 Oxycodone/ 1 TAB Q6-PRN PRN 10/14 1245 AC 10/17 Acetaminophen PO 0358 Paroxetine HCl 10 MG DAILY 10/10 0900 AC 10/17 PO 0756 Potassium Chloride 40 MEQ ONCE ONE 10/16 1700 CAN PO 10/16 1701 Potassium Chloride 40 MEQ ONCE ONE 10/16 1700 DC 10/16 PO 10/16 1701 1626 Potassium Chloride 60 MEQ ONCE ONE 10/16 1200 DC 10/16 PO 10/16 1201 1120 Potassium Chloride 60 MEQ ONCE ONE 10/16 0930 CAN PO 10/16 0931 Tamsulosin HCl 0.4 MG AT BEDTIME 10/12 2099 AC 10/16 PO 2011 Warfarin Sodium 5 MG COUMADIN 1700 ONE 10/16 1700 CAN PO 10/16 1701 Warfarin Sodium 5 MG COUMADIN 1700 ONE 10/16 1700 DC 10/16 PO 10/16 1701 1729 Results Last 48 Hrs of Labs/Mics: Laboratory Tests 10/17/17 0607: Anion Gap 10, Estimated GFR > 60, BUN/Creatinine Ratio 19.0, PT 25.8 H, INR 2.35 H 10/16/17 1425: PT 25.4 H, INR 2.31 H 10/16/17 0605: Anion Gap 11, Estimated GFR > 60, BUN/Creatinine Ratio 21.0, TSH 2.490, Free T4 1.53, Cortisol AM Sample 12.7, CBC w Diff NO MAN DIFF REQ, RBC 2.84 L, MCV 89.1 , MCH 30.5, MCHC 34.2, RDW 19.1 H, MPV 8.4, Gran % 73.8, Lymphocytes % 12.5 L, Monocytes % 8.3, Eosinophils % 4.7, Basophils % 0.7, Absolute Granulocytes 3.0, Absolute Lymphocytes 0.5 L, Absolute Monocytes 0.3, Absolute Eosinophils 0.2, Absolute Basophils 0 Telemetry personally reviewed atrial fibrillation Assessment/Plan Assessment/Plan 1. Coronary artery disease by history status post coronary bypass surgery stable. He has ruled out for myocardial infarction 2. Status post pacemaker 3. Permanent atrial fibrillation on Coumadin with controlled ventricular response 4. Acute on chronic diastolic heart failure causing his symptoms of shortness of breath and near syncope 5. Status post bioprosthetic mitral and aortic valves with moderate mitral stenosis on a recent echocardiogram 6. Hypertension now with borderline hypotension 7. Dyslipidemia Recommendations 1. Continue to diurese monitoring renal function closely 2. Continue Coumadin for stroke prevention given his atrial fibrillation 3. Ambulate as tolerated 4. No ROSALIA/ARB due to borderline hypotension Continue telemetry? Yes
[2017-10-17 14:38] VITALS: BP 130/88
[2017-10-17 21:50] VITALS: BP 126/84
[2017-10-18 06:40] VITALS: BP 124/80
[2017-10-18 08:17] LABS: PT 26.8 SEC (9.4-12.5)
--- NOTE | 2017-10-18 09:02 | PN- Housestaff ---
Sai Pedersen 10/18/17 0902: Subjective Follow-up For: Exacerbation of CHF Tele-Events Since Last Visit: Afib 73-79 mostly, Aflutter 73 once overnight Subjective: Patient lying comfortably in bed. Reports that once yesterday he got dizzy while lying in bed. This has usually only previously occured when he was standing. Patient went for PT, but stopped after a few steps, because he became short of breath. Otherwise patient has no complaints. No acute events overnight. Review of Systems Constitutional: Reports: see HPI. Objective Last 24 Hrs of Vital Signs/I&O Vital Signs Date Time Temp Pulse Resp B/P B/P Pulse O2 O2 Flow FiO2 Mean Ox Delivery Rate 10/18 2315 98.5 72 18 92/54 94 Room Air 10/18 210 73 108/60 10/18 2101 73 108/60 10/18 1600 Room Air 10/18 1419 98.1 76 18 94/68 95 Room Air 10/18 0800 Nasal 2.0L Cannula 10/18 075 76 110/62 10/18 0640 98.9 76 18 124/80 95 Room Air Intake & Output 10/19 0800 10/19 0000 10/18 1600 Intake Total 200 800 Output Total 975 1925 Balance -775 -1125 Intake, Oral 200 800 Output, Urine 975 1925 Patient 187 lb Weight Weight Bed scale Measurement Method Physical Exam General Appearance: Alert, Oriented X3, Cooperative, Mild Distress Skin Temp/Moisture Exam: Warm/Dry Sepsis Skin Exam (color): Normal for Ethnicity HEENT: Atraumatic, PERRLA, EOMI Neck: Supple Cardiovascular: Normal S1, Normal S2 Lungs: Bibasalar Crackles Abdomen: Soft, No Tenderness Neurological: Normal Speech Extremities: 1+ Edema BL LE Current Medications: Current Medications Sig/Ifeanyi Start time Last Medication Dose Route Stop Time Status Admin Acetaminophen 650 MG Q6P PRN 10/09 2130 AC PO Albuterol Sulfate 3 ML Q4P PRN 10/13 1115 AC 10/14 INH 1629 Allopurinol 100 MG DAILY 10/12 1230 AC 10/18 PO 0750 Artificial Tears 2 GTT 4 TIMES/DAY PRN 10/18 1645 AC 10/18 OPH 2101 Atorvastatin Calcium 80 MG 1700 10/10 1700 AC 10/18 PO 1627 Ferrous Sulfate 325 MG BID 10/10 0900 AC 10/18 PO 2100 Furosemide 40 MG 7:30 AM, & 4:30 PM 10/15 1630 AC 10/18 IV 1627 Linaclotide 145 MCG DAILY 10/10 09 AC 10/18 PO 0750 Loratadine 10 MG DAILY 10/10 09 AC 10/18 PO 0751 Metolazone 2.5 MG DAILY 10/17 1130 AC 10/18 PO 0750 Metoprolol Tartrate 50 MG BID 10/12 2099 AC 10/18 PO 210 Oxycodone/ 1 TAB Q6-PRN PRN 10/14 1245 AC 10/17 Acetaminophen PO 0358 Paroxetine HCl 10 MG DAILY 10/10 09 AC 10/18 PO 075 Potassium Chloride 40 MEQ BID 10/18 1115 AC 10/18 PO 10/19 092099 Tamsulosin HCl 0.4 MG AT BEDTIME 10/12 2099 AC 10/18 PO 210 Warfarin Sodium 5 MG COUMADIN 1700 ONE 10/18 1700 DC 10/18 PO 10/18 1701 1627 Last 24 Hrs of Lab/Manuel Results Last 24 Hrs of Labs/Mics: Laboratory Tests 10/18/17 0617: Anion Gap 11, Estimated GFR > 60, BUN/Creatinine Ratio 17.0, PT 26.8 H, INR 2.44 H Assessment/Plan Assessment: 76-year-old man with a significant past medical history of coronary vascular disease including A. fib on coumadin, CABG, hypertension, hyperlipidemia, mitral and aortic valve repair, pacemaker, fall 6 weeks ago s/p kyphoplasty, who was brought in by ambulance due to dizziness, presyncope, most likely caused by acute on chronic heart failure. 1. Volume Overload 2/2 to acute on chronic diastolic heart failure (CHF) - Continue IV Lasix 40 mg - Continue Metolazone 2.5 mg - Discussion with PT and nursing about ambulation therapy using oxygen - Wean of oxygen as saturations tolerate - CXR ordered for tmrw as per cardiology 2. Permanent Afib on Coumadin: Today INR 2.44 - Monitor INR (today) 2.44 - Dose Coumadin accordingly - Heart rate seems to be well controlled 3. Hypokalemia - Replace potassium orally - BEP in the am 4. Chronic conditions (hypertension, dyslipidemia, gout, BPH, anxiety) - Monitor blood pressure - Continue metoprolol 50mg BID - Continue atorvastatin 80mg daily - Continue allopurinol 100 mg daily - Continue tamsulosin 0.4 mg daily - Continue paroxetine 10 mg daily Problem List: 1. CHF exacerbation Pain Ratin Pain Location: N/A Pain Goal: Remain pain free Pain Plan: N/A Tomorrow's Labs & Rationales: MIN Armstrong MD,Stacie 10/18/17 1147: Attending MD Review Statement Attending Statement Attending MD Statement: examined this patient, discuss w/resident/PA/MAINFRAME SOFTWARE DEVELOPER, agreed w/resident/PA/MAINFRAME SOFTWARE DEVELOPER, reviewed EMR data (avail), discussed with nursing, discussed with case mgmt, amended to note Attending Assessment/Plan: Patient was started on metolazone in addition to his intravenously as of yesterday and he is diuresing more appropriately. On examination lower extremity edema does appear improved compared to previously. His weights do not appear to be recorded accurately however. He reports feeling well at rest and denies shortness of breath with minimal exertion like he had previously. We will continue patient on his regimen. We will monitor his electrolytes closely and supplement as needed. He is maintaining saturation on room air at rest however there is report that he does saturates with physical therapy. Recommend placing patient on oxygen at the time of physical therapy in order to allow him to participate and prevent further deconditioning. This instruction was clearly passed over to the nursing staff. Hopefully after adequate diuresis over the next few days he may be discharged on an oral regimen.
--- NOTE | 2017-10-18 11:36 | PN- Cardiology ---
Subjective Subjective: Remains on nasal cannula oxygen but was able to ambulate today without shortness of breath. Objective Vital Signs and I&Os Vital Signs Date Time Temp Pulse Resp B/P B/P Pulse O2 O2 Flow FiO2 Mean Ox Delivery Rate 10/19 799 Nasal 2.0L Cannula 10/18 0751 76 110/62 10/18 0640 98.9 76 18 124/80 95 Room Air 10/17 2150 98.8 88 18 126/84 93 Room Air 10/17 2120 96 110/58 10/17 2119 96 110/58 10/17 1600 Room Air 10/17 1438 97.8 103 20 130/88 97 Room Air Intake & Output 10/18 0810/18 0000 10/17 1600 10/17 0810/17 0000 Intake Total 100 440 600 100 100 Output Total 600 1350 254 077 8403 Balance -500 -910 -150 -200 -900 Intake, Oral 100 440 600 100 100 Number 1 Bowel Movements Output, Urine 600 1350 564 952 4692 Patient 200 lb Weight Physical Exam: General: no apparent distress. Alert. On nasal cannula Eyes: No obvious scleral icterus. HEENT: No jugular venous distention or abnormal jugular venous pulsations. Cardiovascular: Normal intensity S1/S2. Irregular. Respiratory: Mildly decreased air entry Abdomen: Soft, nontender with no guarding or rebound tenderness. Musculoskeletal: No clubbing or cyanosis noted; trace lower extremity edema; compression stockings Skin: warm, ecchymoses noted Neurologic: No gross focal deficits noted. Current Medications: Current Medications Sig/Ifeanyi Start time Last Medication Dose Route Stop Time Status Admin Acetaminophen 650 MG Q6P PRN 10/09 2130 AC PO Albuterol Sulfate 3 ML Q4P PRN 10/13 1115 AC 10/14 INH 1629 Allopurinol 100 MG DAILY 10/12 1230 AC 10/18 PO 0750 Atorvastatin Calcium 80 MG 1700 10/10 1700 AC 10/17 PO 1626 Ferrous Sulfate 325 MG BID 10/10 09 AC 10/18 PO 08 Furosemide 40 MG 7:30 AM, & 4:30 PM 10/15 1630 AC 10/18 IV 0750 Linaclotide 145 MCG DAILY 10/10 09 AC 10/18 PO 0750 Loratadine 10 MG DAILY 10/10 09 AC 10/18 PO 075 Metolazone 2.5 MG DAILY 10/17 1130 AC 10/18 PO 0750 Metoprolol Tartrate 50 MG BID 10/12 2100 AC 10/18 PO 0751 Oxycodone/ 1 TAB Q6-PRN PRN 10/14 1245 AC 10/17 Acetaminophen PO 0358 Paroxetine HCl 10 MG DAILY 10/10 0900 AC 10/18 PO 0751 Potassium Chloride 40 MEQ BID 10/18 1115 AC PO 10/19 0901 Tamsulosin HCl 0.4 MG AT BEDTIME 10/12 2100 AC 10/17 PO 2119 Warfarin Sodium 5 MG COUMADIN 1700 ONE 10/17 1700 DC 10/17 PO 10/17 1701 1626 Results Last 48 Hrs of Labs/Mics: Laboratory Tests 10/18/17 0617: Anion Gap 11, Estimated GFR > 60, BUN/Creatinine Ratio 17.0, PT 26.8 H, INR 2.44 H 10/17/17 0607: Anion Gap 10, Estimated GFR > 60, BUN/Creatinine Ratio 19.0, PT 25.8 H, INR 2.35 H 10/16/17 1425: PT 25.4 H, INR 2.31 H Recent Imaging Studies: Telemetry tracings were personally reviewed and show atrial fibrillation Assessment/Plan Assessment/Plan 1. Coronary artery disease by history status post coronary bypass surgery stable. He has ruled out for myocardial infarction 2. Status post pacemaker 3. Permanent atrial fibrillation on Coumadin with controlled ventricular response 4. Acute on chronic diastolic heart failure causing his symptoms of shortness of breath and near syncope 5. Status post bioprosthetic mitral and aortic valves with moderate mitral stenosis on a recent echocardiogram 6. Hypertension now with borderline hypotension 7. Dyslipidemia The patient appears to be clinically improving with IV Lasix and oral metolazone ; continue with diuresis and repeat chest x-ray tomorrow. Replete potassium. Heart rate appears reasonably well controlled on telemetry. Wean off oxygen as saturations tolerate. Azael Faith MD [facility] Continue telemetry? Yes
[2017-10-18 14:19] VITALS: BP 94/68
[2017-10-18 23:15] VITALS: BP 92/54
[2017-10-19 06:33] VITALS: BP 98/62
[2017-10-19 08:16] LABS: PT 29.3 SEC (9.4-12.5)
--- NOTE | 2017-10-19 08:47 | PN- Cardiology ---
Subjective Subjective: Patient still in bed but claims to feel much better. Telemetry reviewed. Sinus mechanism throughout. Objective Vital Signs and I&Os Vital Signs Date Time Temp Pulse Resp B/P B/P Pulse O2 O2 Flow FiO2 Mean Ox Delivery Rate 10/19 0633 98.4 72 18 98/62 93 Room Air 10/18 2315 98.5 72 18 92/54 94 Room Air 10/18 210 73 108/60 10/18 2101 73 108/60 10/18 1600 Room Air 10/18 1419 98.1 76 18 94/68 95 Room Air Intake & Output 10/19 1600 10/19 0810/19 0000 10/18 1600 10/18 0810/18 0000 Intake Total 120 200 800 100 440 Output Total 754 222 4857 600 1350 Balance -480 -775 -1125 -500 -910 Intake, Oral 120 200 800 100 440 Output, Urine 868 706 6017 600 1350 Patient 187 lb Weight Weight Bed scale Measurement Method Physical Exam: On general exam patient appeared comfortable Head normocephalic atraumatic Eyes sclera anicteric conjunctiva showed no pallor extraocular muscles were normal Neck no definite jugular venous distention no bruits no carotid bruits no thyroid masses Chest lungs were clear bilaterally Heart regular rhythm with a 1/6 systolic murmur Abdomen soft no organomegaly bowel sounds normal Extremities no clubbing cyanosis or edema. Neurological no gross motor or sensory deficits Current Medications: Current Medications Sig/Ifeanyi Start time Last Medication Dose Route Stop Time Status Admin Acetaminophen 650 MG Q6P PRN 10/09 2130 AC PO Albuterol Sulfate 3 ML Q4P PRN 10/13 1115 AC 10/14 INH 1629 Allopurinol 100 MG DAILY 10/12 1230 AC 10/18 PO 0750 Artificial Tears 2 GTT 4 TIMES/DAY PRN 10/18 1645 AC 10/18 OPH 2101 Atorvastatin Calcium 80 MG 1700 10/10 1700 AC 10/18 PO 1627 Ferrous Sulfate 325 MG BID 10/10 09 AC 10/18 PO 2100 Furosemide 40 MG 7:30 AM, & 4:30 PM 10/15 1630 AC 10/19 IV 0843 Linaclotide 145 MCG DAILY 10/10 09 AC 10/18 PO 0750 Loratadine 10 MG DAILY 10/10 09 AC 10/18 PO 0751 Metolazone 2.5 MG DAILY 10/17 1130 AC 10/18 PO 0750 Metoprolol Tartrate 50 MG BID 10/12 2100 AC 10/18 PO 2101 Oxycodone/ 1 TAB Q6-PRN PRN 10/14 1245 AC 10/17 Acetaminophen PO 0358 Paroxetine HCl 10 MG DAILY 10/10 0900 AC 10/19 PO 0842 Potassium Chloride 40 MEQ Q6 10/19 1200 AC PO 10/20 0601 Potassium Chloride 40 MEQ BID 10/18 1115 AC 10/19 PO 10/19 0901 0842 Tamsulosin HCl 0.4 MG AT BEDTIME 10/12 2100 AC 10/18 PO 2101 Warfarin Sodium 5 MG COUMADIN 1700 ONE 10/18 1700 DC 10/18 PO 10/18 1701 1627 Results Last 48 Hrs of Labs/Mics: Laboratory Tests 10/19/17 0615: Anion Gap 8, Estimated GFR > 60, BUN/Creatinine Ratio 18.0, PT 29.3 H, INR 2.66 H 10/18/17 0617: Anion Gap 11, Estimated GFR > 60, BUN/Creatinine Ratio 17.0, PT 26.8 H, INR 2.44 H Assessment/Plan Assessment/Plan In summary this 76-year-old gentleman has a following problems1. Coronary artery disease by history status post coronary bypass surgery stable. He has ruled out for myocardial infarction 2. Status post pacemaker 3. Permanent atrial fibrillation on Coumadin with controlled ventricular response 4. Acute on chronic diastolic heart failure causing his symptoms of shortness of breath and near syncope 5. Status post bioprosthetic mitral and aortic valves with moderate mitral stenosis on a recent echocardiogram 6. Hypertension now with borderline hypotension 7. Dyslipidemia Negative balance and improve congestive heart failure. Saturations satisfactory on 1 L. Clinically admits to feeling better. Potassium is 2.8 needs replenishment. I would decrease metazolone to every other day in view of hypokalemia. Continue telemetry? Yes
--- NOTE | 2017-10-19 09:17 | RADIOLOGY REPORT ---
EXAMINATION: XR PORTABLE CHEST CLINICAL INFORMATION: Congestive heart failure. COMPARISON: 10/14/2017 TECHNIQUE: Portable frontal view of the chest was obtained. FINDINGS: Patient is rotated into a left posterior oblique position. Again noted are the the dual-chamber cardiac pacing leads and surgical changes of prior coronary artery bypass grafting. Cardiomegaly. Atherosclerotic calcification of aorta. Pulmonary vessels remain prominent, but pulmonary vascular congestion appears improved compared to 10/14/2017. Currently, there is no overt interstitial edema. The pleural thickening and/or small right pleural effusion is unchanged. IMPRESSION: Cardiomegaly and apparent improvement of pulmonary vascular congestion compared to 10/14/2017. Persistent small right pleural effusion.
--- NOTE | 2017-10-19 09:57 | PN- Housestaff ---
AntoinemaryamSai 10/19/17 0957: Subjective Follow-up For: Exacerbation of CHF Tele-Events Since Last Visit: A flutter 73-83, converted at 4 PM to sinus rhythm 71-73 Subjective: Patient was seen and examined lying in bed comfortably. No events overnight. Patient has no complaints and reports that he had no further episodes of dizziness. Patient was ambulating with physiotherapy close to 100 feet on 2 L oxygen and was saturating in the 90s. When off the oxygen and ambulating patient desaturates very quickly. Patient feels a lot better and says he feels like the edema in both of his legs has decreased significantly. He also believes that he is less short of breath. Review of Systems Constitutional: Reports: see HPI. Objective Last 24 Hrs of Vital Signs/I&O Vital Signs Date Time Temp Pulse Resp B/P B/P Pulse O2 O2 Flow FiO2 Mean Ox Delivery Rate 10/19 0845 72 94/56 10/19 0633 98.4 72 18 98/62 93 Room Air 10/18 2315 98.5 72 18 92/54 94 Room Air 10/18 2101 73 108/60 10/18 2101 73 108/60 10/18 1600 Room Air 10/18 1419 98.1 76 18 94/68 95 Room Air Intake & Output 10/19 1600 10/19 0800 10/19 0000 Intake Total 120 200 Output Total 600 975 Balance -480 -775 Intake, Oral 120 200 Output, Urine 600 975 Patient 187 lb Weight Weight Bed scale Measurement Method Physical Exam General Appearance: Alert, Oriented X3, Cooperative, No Acute Distress Skin Temp/Moisture Exam: Warm/Dry Sepsis Skin Exam (color): Normal for Ethnicity HEENT: Atraumatic, PERRLA, EOMI Neck: Supple Cardiovascular: Normal S1, Normal S2 Lungs: Very slight bibaslar crackles Abdomen: Normal Bowel Sounds, Soft, No Tenderness Neurological: Normal Speech Extremities: Trace edema BL LE, 1+ pulses BL LE Current Medications: Current Medications Sig/Ifeanyi Start time Last Medication Dose Route Stop Time Status Admin Acetaminophen 650 MG Q6P PRN 10/09 2130 AC PO Albuterol Sulfate 3 ML Q4P PRN 10/13 1115 AC 10/14 INH 1629 Allopurinol 100 MG DAILY 10/12 1230 AC 10/19 PO 0845 Artificial Tears 2 GTT 4 TIMES/DAY PRN 10/18 1645 AC 10/19 OPH 1113 Atorvastatin Calcium 80 MG 1700 10/10 1700 AC 10/18 PO 1627 Ferrous Sulfate 325 MG BID 10/10 09 AC 10/19 PO 0845 Furosemide 40 MG 7:30 AM, & 4:30 PM 10/15 1630 AC 10/19 IV 1109 Linaclotide 145 MCG DAILY 10/10 0900 AC 10/19 PO 0845 Loratadine 10 MG DAILY 10/10 09 AC 10/19 PO 0845 Metolazone 2.5 MG Q48 10/21 09 AC PO Metolazone 2.5 MG DAILY 10/17 1130 DC 10/19 PO 0845 Metoprolol Tartrate 50 MG BID 10/12 2100 AC 10/19 PO 0845 Oxycodone/ 1 TAB Q6-PRN PRN 10/14 1245 AC 10/17 Acetaminophen PO 0358 Paroxetine HCl 10 MG DAILY 10/10 09 AC 10/19 PO 0842 Potassium Chloride 40 MEQ Q6 10/19 1200 AC PO 10/20 0601 Potassium Chloride 40 MEQ BID 10/18 1115 DC 10/19 PO 10/19 0901 0842 Tamsulosin HCl 0.4 MG AT BEDTIME 10/12 2100 AC 10/18 PO 2101 Warfarin Sodium 5 MG COUMADIN 1700 ONE 10/18 1700 DC 10/18 PO 10/18 1701 1627 Last 24 Hrs of Lab/Manuel Results Last 24 Hrs of Labs/Mics: Laboratory Tests 10/19/17 0615: Anion Gap 8, Estimated GFR > 60, BUN/Creatinine Ratio 18.0, PT 29.3 H, INR 2.66 H Assessment/Plan Assessment: 76-year-old man with a significant past medical history of coronary vascular disease including A. fib on coumadin, CABG, hypertension, hyperlipidemia, mitral and aortic valve repair, pacemaker, fall 6 weeks ago s/p kyphoplasty, who was brought in by ambulance due to dizziness, presyncope, most likely caused by acute on chronic heart failure. 1. Volume Overload 2/2 to acute on chronic diastolic heart failure (CHF) - Continue IV Lasix 40 mg today - Continue metolazone 2.5 mg - Anticipate transitioning patient to oral Lasix tomorrow at 80 mg twice daily - Anticipate decreasing metolazone to 2.5 mg every other day - Wean off oxygen as saturations tolerate - CXR showed apparent improvement of pulmonary vascular congestion compared to 10/14/2017 with a persistent small right pleural effusion 2. Permanent Afib on Coumadin - Monitor INR (today) 2.66 - Dose Coumadin accordingly - Heart rate seems to be well controlled, only transitional aflutter per telemonitor 3. Hypokalemia (most likely 2/2 metolazone) - K+ today 2.7 in the am, 3.2 by afternoon - Continue to replace potassium orally Q6 - BEP in the afternoon, night, and am 4. Chronic conditions (hypertension, dyslipidemia, gout, BPH, anxiety) - Monitor blood pressure - Continue metoprolol 50mg BID - Continue atorvastatin 80mg daily - Continue allopurinol 100 mg daily - Continue tamsulosin 0.4 mg daily - Continue paroxetine 10 mg daily Problem List: 1. CHF exacerbation Pain Ratin Pain Location: NA Pain Goal: Remain pain free Pain Plan: Tylenol Tomorrow's Labs & Rationales: CBC, BEP Patti LIND,Stacie 10/19/17 1149: Attending MD Review Statement Attending Statement Attending MD Statement: examined this patient, discuss w/resident/PA/OLIVING MACHINE OPERATOR, agreed w/resident/PA/OLIVING MACHINE OPERATOR, reviewed EMR data (avail), discussed with nursing, discussed with case mgmt, amended to note Attending Assessment/Plan: Patient is doing much better following initiation of metolazone therapy. He is able to ambulate with the physical therapist. His lower extremity edema has improved significantly. His lungs sound better. He also reports feeling much better. Unfortunately continues to desaturate with exertion. In view of this we will continue oxygen supplementation for now. He is also significantly hypokalemic most likely from his diuretic therapy. Cardiology follow-up appreciated. Plan: -Continue diuresis with Lasix IV today. Anticipate transitioning patient to oral Lasix tomorrow at the dose of 80 mg twice daily in addition to continuing patient on metolazone but decreasing dose to 2.5 mg every other day. -[facility] due to deconditioning-. His serum chemistry should be monitored weekly. -We will supplement his potassium levels appropriately and discharge him on potassium 20 mEq daily
[2017-10-19] MEDS ORDERED: METOLAZONE2.5 M1 PO (10:16)
[2017-10-19 14:00] VITALS: BP 130/70
[2017-10-19] MEDS ORDERED: FUROSEMIDE40 M1 PO (15:33)
[2017-10-19 22:22] VITALS: BP 102/66
[2017-10-20 06:55] VITALS: BP 98/64
[2017-10-20 08:03] LABS: ABSOLUTE BASOPHIL COUNT 0.1 /CUMM (0.0-0.2); ABSOLUTE EOSINOPHIL COUNT 0.3 /CUMM (0.0-0.7); ABSOLUTE GRANULOCYTE CT 3.2 /CUMM (1.4-6.5); ABSOLUTE LYMPH COUNT 0.6 /CUMM (1.2-3.4); ABSOLUTE MONOCYTE COUNT 0.4 /CUMM (0.10-0.60); BASOPHIL % 1.2 % (0.0-2.0); EOSINOPHIL % 5.9 % (0-5); GRANULOCYTE % 69.5 % (42.2-75.2); HEMATOCRIT 28.2 % (42-52); MEAN CORPUSCULAR HGB CONC 34.5 G/DL (33.0-37.0); MEAN CORPUSCULAR VOLUME 89.7 FL (80.0-94.0); MEAN PLATELET VOLUME 8.1 FL (7.4-10.4); PLATELET COUNT 159 /CUMM (130-400); RBC DISTRIBUTION WIDTH 18.7 % (11.5-14.5); RED BLOOD CELL CT 3.15 /CUMM (4.70-6.10); WHITE BLOOD CELL COUNT 4.7 /CUMM (4.8-10.8)
[2017-10-20 08:14] VITALS: BP 98/56
[2017-10-20] MEDS ORDERED: KLOR-CON M2020 ME1 PO ×2 (08:38→09:48)
[2017-10-20] MEDS ORDERED: METOLAZONE2.5 M1 PO (09:48)
--- NOTE | 2017-10-20 10:40 | PN- Housestaff ---
Subjective Follow-up For: Exacerbation of CHF Tele-Events Since Last Visit: NSR 72-80 Subjective: Pt seen and examined sitting up in chair. No acute events overnight per nursing staff. Patient ambulated almost 30 feet with PT while on 1L oxygen but began to desatuarte to high 80's by the end. Patient denies headache, difficulty breathing while lying down or sitting, palpitations, chest pain, chest tightness. No new complaints. He feels much better. Review of Systems Constitutional: Reports: see HPI. Objective Last 24 Hrs of Vital Signs/I&O Vital Signs Date Time Temp Pulse Resp B/P B/P Pulse O2 O2 Flow FiO2 Mean Ox Delivery Rate 10/20 1408 97.4 88 18 104/68 93 Nasal 2.0L Cannula 10/20 1136 98.0 84 18 90/50 10/20 1040 84 90/50 10/20 0814 78 98/56 10/20 0655 98.0 74 18 98/64 93 Room Air Intake & Output 10/21 0800 10/21 0000 10/20 1600 Intake Total 580 Output Total 500 700 Balance -500 -120 Intake, IV 20 Intake, Oral 560 Output, Urine 500 700 Physical Exam General Appearance: Alert, Oriented X3, Cooperative, No Acute Distress Skin Temp/Moisture Exam: Warm/Dry Sepsis Skin Exam (color): Normal for Ethnicity HEENT: Atraumatic, PERRLA, EOMI Neck: Supple Cardiovascular: Regular Rate, Normal S1, Normal S2 Lungs: Mild bibasalar crackles Abdomen: Soft, No Tenderness Neurological: Normal Speech Extremities: No LE edema noted Current Medications: Current Medications Sig/Ifeanyi Start time Last Medication Dose Route Stop Time Status Admin Acetaminophen 650 MG Q6P PRN 10/09 2130 DCD PO Albuterol Sulfate 3 ML Q4P PRN 10/13 1115 DCD 10/14 INH 1629 Allopurinol 100 MG DAILY 10/12 1230 DCD 10/20 PO 0910 Artificial Tears 2 GTT 4 TIMES/DAY PRN 10/18 1645 DCD 10/20 OPH 0910 Atorvastatin Calcium 80 MG 1700 10/10 1700 DCD 08/ PO 1701 Ferrous Sulfate 325 MG BID 10/10 0900 DCD 10/20 PO 0910 Furosemide 40 MG 7:30 AM, & 4:30 PM 10/15 1630 DCD 10/20 IV 0824 Linaclotide 145 MCG DAILY 10/10 899 DCD 10/20 PO 0910 Loratadine 10 MG DAILY 10/10 09 DCD 10/20 PO 0910 Metolazone 2.5 MG Q48 10/21 899 DCD PO Metoprolol Tartrate 50 MG BID 10/12 2100 DCD 10/19 PO 2102 Oxycodone/ 1 TAB Q6-PRN PRN 10/14 1245 DCD 10/20 Acetaminophen PO 1447 Paroxetine HCl 10 MG DAILY 10/10 899 DCD 10/20 PO 0910 Patient Medication 1 ED ONE ONE 10/20 1515 DC Teaching ED 10/20 1516 Potassium Chloride 20 MEQ DAILY 10/21 899 DCD PO Potassium Chloride 40 MEQ ONCE ONE 10/20 1500 DC 10/20 PO 10/20 1501 1447 Potassium Chloride 60 MEQ ONCE ONE 10/20 0730 DC 10/20 PO 10/20 0731 0907 Tamsulosin HCl 0.4 MG AT BEDTIME 10/12 2100 DCD 10/19 PO 2101 Warfarin Sodium 5 MG COUMADIN 1700 ONE 10/21 1700 DCD PO 10/21 1701 Warfarin Sodium 5 MG COUMADIN 1700 10/20 1700 DCD 10/20 PO 10/20 2359 1448 Assessment/Plan Assessment: 76-year-old man with a significant past medical history of coronary vascular disease including A. fib on coumadin, CABG, hypertension, hyperlipidemia, mitral and aortic valve repair, pacemaker, fall 6 weeks ago s/p kyphoplasty, who was brought in by ambulance due to dizziness, presyncope, most likely caused by acute on chronic heart failure. 1. Volume Overload 2/2 to acute on chronic diastolic heart failure (CHF) - Adivised to continue Metolazone 2.5 MG PO T/T/S (3 times weekly) and metoprolol 50 MG BID - Wean off oxygen as saturations tolerate - Saturating low to mid 90s on room air when at rest - Advised to followup with CHF clinic - Advised to follow up with core drill operator helper in one week 2. Permanent Afib on Coumadin - INR 2.45 today - Adivsed to follow up with coumadin clinic - Heart rate seems to be well controlled with current regimen which he will receive outpt 3. Hypokalemia (most likely 2/2 diuretics) - K+ now 3.2 (resolving) - Metalazone will be decreased to 3 times weekly - Being sent out with K+ supplements 4. Chronic conditions (hypertension, dyslipidemia, gout, BPH, anxiety) - Pt advised to follow new home medication regimen (torsemide will be stopped) - Advised to followup with PCP wthin 1 week - Advised to repeat blood work 10/23/17 Problem List: 1. CHF exacerbation Pain Ratin Pain Location: None Pain Goal: Remain pain free Pain Plan: NA Tomorrow's Labs & Rationales: None
[2017-10-20 11:36] VITALS: BP 90/50
[2017-10-20 14:08] VITALS: BP 104/68
== END 2017-10-20 16:40 | DRG 292 ==
LOC: ERH 18:30 → 1NO 20:22 → ERHI 20:22 → ENRESERV 21:05 → ENTRNSPT 21:26 → EDTRNSPT 21:43 → EDTRNSPTSTS 21:43 → 1NO 21:47 → CMPTRNSPT 22:01 → 1NO 10-10 08:45 → ENPENDDIS 10-20 10:16 → 1NO 10-20 16:40
PROVIDERS: Emergency Medicine; Internal Medicine; Internal Medicine Interventional Cardiology; Student in an Organized Health Care Education/Training Program
DX: I11.0 Hypertensive heart disease with heart failure (principal); N17.9 Acute kidney failure, unspecified; I47.2 Ventricular tachycardia; E87.1 Hypo-osmolality and hyponatremia; E87.5 Hyperkalemia; I48.2 Chronic atrial fibrillation; I50.33 Acute on chronic diastolic (congestive) heart failure; D69.6 Thrombocytopenia, unspecified; Z95.1 Presence of aortocoronary bypass graft; Z95.3 Presence of xenogenic heart valve; R09.02 Hypoxemia; I25.10 Atherosclerotic heart disease of native coronary artery without angina pectoris; E78.5 Hyperlipidemia, unspecified; G89.29 Other chronic pain; M54.5 Low back pain; M10.9 Gout, unspecified; Z95.0 Presence of cardiac pacemaker; I95.9 Hypotension, unspecified; Z79.01 Long term (current) use of anticoagulants; S51.812A Laceration without foreign body of left forearm, initial encounter; Z86.73 Personal history of transient ischemic attack (TIA), and cerebral infarction without residual deficits; F41.9 Anxiety disorder, unspecified; Z90.49 Acquired absence of other specified parts of digestive tract; N40.0 Benign prostatic hyperplasia without lower urinary tract symptoms; X58.XXXA Exposure to other specified factors, initial encounter; Z87.891 Personal history of nicotine dependence; Z87.81 Personal history of (healed) traumatic fracture; Z85.46 Personal history of malignant neoplasm of prostate
CPT/HCPCS: 1NP; 36415; 36592; 71045; 71046; 82436; 87040; 93005; 93010; 93306; 93970; 96374; 96375; 97110-GO; 97116-GO; 97161-GP; 97165-GO; 97530-GO; J0696; J1940; J7040